=== PATIENT | female | born 1955 | race African-American/Black ===

== ENCOUNTER 2016-09-29 16:40 | Emergency (ER) | payer BC ==
[2016-09-29] MEDS ORDERED: NORMAL SALINE 1000 ML 1,000 ML IV PRN (16:58)
[2016-09-29] MEDS ORDERED: MORPHINE SULFATE 10 MG/ML INJ IV PRN ×3 (16:58→20:15)
[2016-09-29] MEDS ORDERED: METOCLOPRAMIDE HCL INJ/PF 10 MG/2 ML SDV IV ONE (16:58)
[2016-09-29] MEDS ORDERED: DIPHENHYDRAMINE HCL 50 MG/ML VIAL IV ONE (16:58)
--- NOTE | 2016-09-29 16:58 | ER Document Report ---
ED General - General Stated Complaint: VOMITING Time seen by provider: 16:57 Mode of Arrival: Ambulatory Information source: Patient Notes: This is a 60-year-old female with a history of chronic back pain, chronic hepatitis C ([place]), hypertension. Patient presents to the emergency room with nausea, vomiting, diarrhea. Patient does states she ran out of her hydromorphone (2 mg 4 times a day) one day ago. Patient denies fever, blood in the stool. She does admit to crampy abdominal pain.. TRAVEL OUTSIDE OF THE [place] IN LAST 30 DAYS: No - HPI Onset: Yesterday Onset/Duration: Sudden Quality of pain: Dull Severity: Moderate Pain Level: 3 Associated symptoms: Diarrhea, Nausea, Vomiting. denies: Chills, Fever, Shortness of breath Exacerbated by: Denies Relieved by: Denies Similar symptoms previously: No Recently seen / treated by doctor: No - Related Data Allergies/Adverse Reactions: No Known Allergies Allergy (Unverified 05/09/16 11:45) Past Medical History - General Information source: Patient - Social History Smoking Status: Never Smoker Cigarette use (# per day): No Chew tobacco use (# tins/day): No Frequency of alcohol use: None Drug Abuse: None Lives with: Alone Family History: Reviewed & Not Pertinent Patient has suicidal ideation: No Patient has homicidal ideation: No - Past Medical History Cardiac Medical History: Reports: Hx Hypertension Pulmonary Medical History: Reports: None EENT Medical History: Reports: None Neurological Medical History: Reports: None Endocrine Medical History: Reports: None Renal/ Medical History: Reports: None Malignancy Medical History: Reports: None GI Medical History: Reports: Other - Chronic hepatitis C Musculoskeltal Medical History: Reports Hx Arthritis, Reports Other - Chronic back pain Skin Medical History: Reports None Psychiatric Medical History: Reports: None Traumatic Medical History: Reports: None Infectious Medical History: Reports: None Surgical Hx: Negative Review of Systems - Review of Systems Constitutional: denies: Chills, Fever EENT: No symptoms reported Cardiovascular: No symptoms reported Respiratory: No symptoms reported Gastrointestinal: See HPI Genitourinary: No symptoms reported Female Genitourinary: No symptoms reported Musculoskeletal: No symptoms reported Skin: No symptoms reported Hematologic/Lymphatic: No symptoms reported Neurological/Psychological: No symptoms reported Physical Exam - Vital signs Vitals: Temp Pulse BP Pulse Ox 98.7 F 69 134/74 H 99 09/29/16 19:09 09/29/16 19:09 09/29/16 19:09 09/29/16 19:09 Notes: Physical exam: GENERAL: 61-year-old female, alert and oriented 3, currently vomiting HEAD: Atraumatic, normocephalic. EYES: Pupils equal round and reactive to light, extraocular movements intact, sclera anicteric, conjunctiva are normal. ENT: Dry mucous membranes. NECK: Normal range of motion, supple without lymphadenopathy or JVD. LUNGS: Breath sounds clear to auscultation bilaterally and equal. No wheezes rales or rhonchi. HEART: Regular rate and rhythm without murmurs, rubs or gallops. ABDOMEN: Soft, nontender, normoactive bowel sounds. No guarding, no rebound. No masses appreciated. EXTREMITIES: Normal range of motion, no pitting or edema. No clubbing or cyanosis. NEUROLOGICAL: Cranial nerves II through XII grossly intact. Normal speech, normal gait. PSYCH: Normal mood, normal affect. SKIN: Warm, Dry, normal turgor, no rashes or lesions noted. Course - Re-evaluation Re-evalutation: 09/29/16 19:32 Patient is receiving IV fluids. No nausea and vomiting has improved significantly. She does complain of a little crampy abdominal pain. Her abdomen is soft. No focal tenderness or signs of peritonitis. 09/29/16 20:52 Patient is doing much better and smiling at this time. She rapidly improved after pain medicine. The initiating onset can certainly of been food poisoning or some viral etiology for the gastroenteritis. However, she also had ran out of her pain medicines and probably has some amount of opiate withdrawal. In any event she did much better with IV fluids, IV Reglan, IV Zofran, and IV morphine. Her lab tests were good (normal white count, normal renal function), her vital signs are stable and CT scan of the abdomen and pelvis showed no acute intra-abdominal surgical pathology. She states she feels good enough to go home I've given her instructions to come back if she gets worse. - Vital Signs Vital signs: Temp Pulse Resp BP Pulse Ox 98.7 F 69 134/74 H 99 09/29/16 19:09 09/29/16 19:09 09/29/16 19:09 09/29/16 19:09 - Laboratory Result Diagrams: 09/29/16 19:25 09/29/16 19:25 Laboratory results interpreted by me: 09/29/16 09/29/16 19:25 19:25 WBC 12.4 H Hgb 15.9 H Hct 48.2 H MCV 101 H Plt Count 145 L Est GFR (Non-Af Amer) 59 L AST 48 H Alkaline Phosphatase 135 H Total Protein 8.8 H - Diagnostic Test Radiology reviewed: Image reviewed, Reports reviewed - CT of the abdomen shows no acute intra-abdominal process Discharge - Discharge Clinical Impression: vomiting with nausea, diarrhea Condition: Stable Disposition: HOME, SELF-CARE Instructions: Vomiting ([facility]), Diarrhea, Nonspecific ([facility]) Additional Instructions: Recommendations: Recommendations: Rest, drink plenty of fluids, advance diet as tolerated. Return to the emergency room with worsening abdominal pain, persistant pain or pain which moves to the right lower abdomen. You can try Probiotics: Activia Probiotic is sold next is milk and supermarkets : Twice daily for the next 2 weeks. Follow-up with a physician Dr. Lo in the next few days Also follow-up with your pain specialist (Dr. Enciso) as planned Prescriptions: Hydrocodone/Acetaminophen [[place] 5-325 mg Tablet] 1 tab PO Q6HP PRN #20 tablet PRN Reason: Referrals: CLEO STEPHENS MD [Primary Care Provider] - Follow up as needed
[2016-09-29] MEDS ORDERED: ONDANSETRON HCL INJ/PF 4 MG/2 ML SDV IV ONE (17:46)
[2016-09-29 19:36] LABS: ABSOLUTE BASOPHILS # (AUTO) 0.1 10^3/uL (0.0-0.2); ABSOLUTE EOSINOPHILS # (AUTO) 0.1 10^3/uL (0.0-0.6); ABSOLUTE LYMPHOCYTES (AUTO) 3.2 10^3/uL (0.5-4.7); ABSOLUTE MONOCYTES (AUTO) 1.4 10^3/uL (0.1-1.4); ABSOLUTE NEUT (AUTO) 7.7 10^3/uL (1.7-8.2); BASOPHILS % (AUTO) 0.6 % (0-2); EOSINOPHILS % (AUTO) 0.4 % (0-6); HEMATOCRIT 48.2 % (36.0-47.0); HEMOGLOBIN 15.9 g/dL (12.0-15.5); HGB HCT DIFFERENCE -0.5; LYMPHOCYTES % (AUTO) 25.5 % (13-45); MEAN CORPUSCULAR HEMOGLOBIN 33.3 pg (27.0-33.4); MEAN CORPUSCULAR HGB CONC 33.1 g/dL (32.0-36.0); MEAN CORPUSCULAR VOLUME 101 fl (80-97); MONOCYTES % (AUTO) 11.3 % (3-13); RED BLOOD COUNT 4.78 10^6/uL (3.72-5.28); RED CELL DISTRIBUTION WIDTH 12.9 % (11.5-14.0); SEGMENTED NEUTROPHILS % (AUTO) 62.2 % (42-78); WHITE BLOOD COUNT 12.4 10^3/uL (4.0-10.5)
[2016-09-29 19:55] LABS: ALANINE AMINOTRANSFERASE 44 U/L (9-52); ALBUMIN 3.5 g/dL (3.5-5.0); ALKALINE PHOSPHATASE 135 U/L (38-126); ANION GAP 13 (5-19); ASPARTATE AMINO TRANSFERASE 48 U/L (14-36); BILIRUBIN,TOTAL 1.2 mg/dL (0.2-1.3); BLOOD UREA NITROGEN 11 mg/dL (7-20); CALCIUM 9.5 mg/dL (8.4-10.2); CARBON DIOXIDE 26 mmol/L (22-30); CHLORIDE 106 mmol/L (98-107); CREATININE RESULT 0.96 mg/dL (0.52-1.25); GLUCOSE 85 mg/dL (75-110); LIPASE 129.7 U/L (23-300); POTASSIUM 3.7 mmol/L (3.6-5.0); SODIUM 144.5 mmol/L (137-145); TOTAL PROTEIN 8.8 g/dL (6.3-8.2)
[2016-09-29] MEDS ORDERED: ONDANSETRON ODT 4 MG TAB (6 TAB/DSPK) PO PRN (20:47)
[2016-09-29] MEDS ORDERED: HYDROCODONE/ACETAMINOPHEN 5-325 MG 6 TAB/DSPK PO PRN (20:47)
[2016-09-30 06:28] VITALS: BP 115/66
== END 2016-09-29 22:02 | disposition home or self-care (01) ==
LOC: ER 16:40
DX: R11.2 Nausea with vomiting, unspecified (principal); R19.7 Diarrhea, unspecified; B18.2 Chronic viral hepatitis C; Z79.899 Other long term (current) drug therapy; R10.9 Unspecified abdominal pain; I10 Essential (primary) hypertension; M54.9 Dorsalgia, unspecified; G89.29 Other chronic pain; Z79.891 Long term (current) use of opiate analgesic
CPT/HCPCS: 96376; 99284; 96361; 96374; 96375; 36415; 83690; 85025; 80053; 74176; J1200; J2765; J2270; J2405; J7030

== ENCOUNTER 2016-09-30 16:37 | Emergency (ER) | payer BC ==
--- NOTE | 2016-09-30 17:05 | ER Document Report ---
ED Medical Screen (RME) - General Stated Complaint: VOMITING Mode of Arrival: Wheelchair Information source: Patient Notes: Patient complains of nausea, vomiting, diarrhea. Patient was seen in emergency room yesterday for this problem. Patient complains of generalized abdominal pain. No fever. Patient reports decreased urination. hx: Hepatitis C, chronic back pain I have greeted and performed a rapid initial assessment of this patient. A comprehensive ED assessment and evaluation of the patient, analysis of test results and completion of the medical decision making process will be conducted by additional ED providers. TRAVEL OUTSIDE OF THE [place] IN LAST 30 DAYS: No - Related Data Allergies/Adverse Reactions: No Known Allergies Allergy (Unverified 05/09/16 11:45) Past Medical History - Past Medical History Cardiac Medical History: Reports: Hx Hypertension Musculoskeltal Medical History: Reports Hx Arthritis Past Surgical History: Reports: Hx Cholecystectomy - Immunizations Hx Diphtheria, Pertussis, Tetanus Vaccination: Yes Physical Exam - Vital signs Vitals: Temp Pulse Resp BP Pulse Ox 97.7 F 97 22 H 146/87 H 98 09/30/16 16:43 09/30/16 16:43 09/30/16 16:43 09/30/16 16:43 09/30/16 16:43 - Abdominal Tenderness: Tender - Generalized abdomen Course - Vital Signs Vital signs: Temp Pulse Resp BP Pulse Ox 97.7 F 97 22 H 146/87 H 98 09/30/16 16:43 09/30/16 16:43 09/30/16 16:43 09/30/16 16:43 09/30/16 16:43
[2016-09-30] MEDS ORDERED: ONDANSETRON 4 MG TAB.RAPDIS PO ONE (17:07)
[2016-09-30 18:26] LABS: ABSOLUTE EOSINOPHILS # (AUTO) 0.1 10^3/uL (0.0-0.6); ABSOLUTE NEUT (AUTO) 6.1 10^3/uL (1.7-8.2); BASOPHILS % (AUTO) 0.3 % (0-2); EOSINOPHILS % (AUTO) 0.6 % (0-6); HEMATOCRIT 49.3 % (36.0-47.0); HEMOGLOBIN 15.8 g/dL (12.0-15.5); HGB HCT DIFFERENCE -1.9; LYMPHOCYTES % (AUTO) 35.5 % (13-45); MEAN CORPUSCULAR HEMOGLOBIN 32.3 pg (27.0-33.4); MEAN CORPUSCULAR VOLUME 101 fl (80-97); MONOCYTES % (AUTO) 8.8 % (3-13); RED BLOOD COUNT 4.87 10^6/uL (3.72-5.28); RED CELL DISTRIBUTION WIDTH 13.3 % (11.5-14.0); SEGMENTED NEUTROPHILS % (AUTO) 54.8 % (42-78); WHITE BLOOD COUNT 11.2 10^3/uL (4.0-10.5)
[2016-09-30 18:29] LABS: APPEARANCE,URINE CLEAR; BILIRUBIN,URINE NEGATIVE (NEGATIVE); GLUCOSE, URINE NEGATIVE (NEGATIVE); KETONES,URINE TRACE mg/dL (NEGATIVE); LEUKOCYTE ESTERASE,URINE TRACE (NEGATIVE); NITRITE,URINE NEGATIVE (NEGATIVE); PROTEIN,URINE NEGATIVE (NEGATIVE); URINE SPECIFIC GRAVITY 1.011
[2016-09-30 18:45] LABS: ALANINE AMINOTRANSFERASE 38 U/L (9-52); ALBUMIN 3.5 g/dL (3.5-5.0); ALKALINE PHOSPHATASE 139 U/L (38-126); ANION GAP 14 (5-19); ASPARTATE AMINO TRANSFERASE 53 U/L (14-36); BILIRUBIN,TOTAL 1.4 mg/dL (0.2-1.3); BLOOD UREA NITROGEN 12 mg/dL (7-20); CALCIUM 9.3 mg/dL (8.4-10.2); CARBON DIOXIDE 23 mmol/L (22-30); CHLORIDE 104 mmol/L (98-107); CREATININE RESULT 0.91 mg/dL (0.52-1.25); GLUCOSE 95 mg/dL (75-110); LIPASE 138.8 U/L (23-300); POTASSIUM 3.3 mmol/L (3.6-5.0); SODIUM 140.6 mmol/L (137-145); TOTAL PROTEIN 8.7 g/dL (6.3-8.2)
[2016-09-30] MEDS ORDERED: MORPHINE SULFATE 10 MG/ML INJ IV ONE ×2 (19:28→20:57)
[2016-09-30] MEDS ORDERED: NORMAL SALINE 1000 ML 1,000 ML IV PRN (19:28)
[2016-09-30] MEDS ORDERED: ONDANSETRON HCL INJ/PF 4 MG/2 ML SDV IV ONE (19:28)
--- NOTE | 2016-09-30 19:30 | ER Document Report ---
ED GI/ - General Chief Complaint: Nausea/Vomiting Stated Complaint: VOMITING Time seen by provider: 19:29 Mode of Arrival: Wheelchair TRAVEL OUTSIDE OF THE [place] IN LAST 30 DAYS: No - HPI Patient complains to provider of: Abdominal pain, Vomiting Onset: Yesterday - 4 AM Timing/Duration: Sudden, Persistent Quality of pain: Achy, Cramping Severity at maximum: Moderate Severity in ED: Moderate Pain Level: 3 Location: Other - Diffuse Associated symptoms: Diarrhea, Dysuria, Nausea, Vomiting Exacerbated by: Denies Relieved by: Denies Similar symptoms previously: Yes Recently seen / treated by doctor: Yes Notes: 09/30/16 19:29 Patient is a 61-year-old female presenting to the emergency room complaining of nausea and vomiting with crampy diffuse abdominal pain that's been going on since 4 AM yesterday, she reports a small amount of dysuria as well, denies any fever, no sick contacts, denies having any blood in her vomit or diarrhea, patient was seen in this emergency room yesterday and discharge with Zofran and hydrocodone, states she has been unable to keep either of these down - Related Data Allergies/Adverse Reactions: No Known Allergies Allergy (Unverified 05/09/16 11:45) Past Medical History - General Information source: Patient - Social History Smoking Status: Never Smoker Chew tobacco use (# tins/day): No Frequency of alcohol use: None Drug Abuse: None Family History: Reviewed & Not Pertinent Patient has suicidal ideation: No Patient has homicidal ideation: No - Past Medical History Cardiac Medical History: Reports: Hx Hypertension Renal/ Medical History: Denies: Hx Peritoneal Dialysis Musculoskeltal Medical History: Reports Hx Arthritis Past Surgical History: Reports: Hx Cholecystectomy - Immunizations Hx Diphtheria, Pertussis, Tetanus Vaccination: Yes Review of Systems - Review of Systems Constitutional: No symptoms reported EENT: No symptoms reported Cardiovascular: No symptoms reported Respiratory: No symptoms reported Gastrointestinal: See HPI Genitourinary: Dysuria Female Genitourinary: No symptoms reported Musculoskeletal: No symptoms reported Skin: No symptoms reported Hematologic/Lymphatic: No symptoms reported Neurological/Psychological: No symptoms reported -: Yes All other systems reviewed and negative Physical Exam - Vital signs Vitals: Temp Pulse Resp BP Pulse Ox 97.7 F 97 22 H 146/87 H 98 09/30/16 16:43 09/30/16 16:43 09/30/16 16:43 09/30/16 16:43 09/30/16 16:43 Interpretation: Normal - General General appearance: Appears well, Alert - HEENT Head: Normocephalic, Atraumatic Eyes: Normal Pupils: PERRL - Respiratory Respiratory status: No respiratory distress Chest status: Nontender Breath sounds: Normal Chest palpation: Normal - Cardiovascular Rhythm: Regular Heart sounds: Normal auscultation Murmur: No - Abdominal Inspection: Normal Distension: No distension Bowel sounds: Hyperactive Tenderness: Tender - Mild diffuse tenderness Organomegaly: No organomegaly - Back Back: Normal, Nontender - Extremities General upper extremity: Normal inspection, Nontender, Normal color, Normal ROM , Normal temperature General lower extremity: Normal inspection, Nontender, Normal color, Normal ROM , Normal temperature, Normal weight bearing. No: Nikkie's sign - Neurological Neuro grossly intact: Yes Cognition: Normal Orientation: AAOx4 [place] Coma Scale Eye Opening: Spontaneous [place] Coma Scale Verbal: Oriented [place] Coma Scale Motor: Obeys Commands [place] Coma Scale Total: 15 Speech: Normal Motor strength normal: LUE, RUE, LLE, RLE Sensory: Normal - Psychological Associated symptoms: Normal affect, Normal mood - Skin Skin Temperature: Warm Skin Moisture: Dry Skin Color: Normal Course - Re-evaluation Re-evalutation: 09/30/16 20:57 Patient resting comfortably, reports feeling much better, still having some crampy abdominal pain and requesting additional pain medication, she has not been seen vomiting in the emergency room, patient will be by mouth challenge, and likely discharged home with nausea medication and information for follow-up 09/30/16 22:27 Patient continues to rest comfortably, has not had any vomiting visualized while in the emergency room, she will be discharged with nausea medication, she reports that she was to [facility] for chronic pain, therefore she was advised that no additional narcotic pain medication would be prescribed in the emergency room today, she will have to follow up with her primary care provider or pain coordinator for this, patient was advised to do so in the next 1-2 days or return if symptoms worsen, patient acknowledges understanding and agreement with this plan - Vital Signs Vital signs: Temp Pulse Resp BP Pulse Ox 97.7 F 97 22 H 146/87 H 98 09/30/16 16:43 09/30/16 16:43 09/30/16 16:43 09/30/16 16:43 09/30/16 16:43 - Laboratory Result Diagrams: 09/30/16 17:45 09/30/16 17:45 Laboratory results interpreted by me: 09/30/16 09/30/16 09/30/16 17:45 17:45 17:45 WBC 11.2 H Hgb 15.8 H Hct 49.3 H MCV 101 H Potassium 3.3 L Total Bilirubin 1.4 H AST 53 H Alkaline Phosphatase 139 H Total Protein 8.7 H Urine Ketones TRACE H Urine Urobilinogen 4.0 H Ur Leukocyte Esterase TRACE H Discharge - Discharge Clinical Impression: Nausea and vomiting Qualifiers: Vomiting type: unspecified Vomiting Intractability: non-intractable Qualified Code(s): R11.2 - Nausea with vomiting, unspecified Abdominal pain Qualifiers: Abdominal location: epigastric Qualified Code(s): R10.13 - Epigastric pain Condition: Stable Disposition: HOME, SELF-CARE Instructions: Abdominal Pain ([facility]), Antinausea Medication ([facility]), Vomiting ([facility]) Additional Instructions: Follow up with your primary care provider and your pain coordinator in one to 2 days. Return to the emergency room immediately if symptoms worsen or any additional concerns. Prescriptions: Promethazine HCl [Phenergan 25 mg Tablet] 25 - 50 mg PO ASDIR PRN #20 tablet PRN Reason:
[2016-09-30] MEDS ORDERED: PROMETHAZINE HCL 25 MG TABLET PO ONE (22:30)
[2016-09-30 23:21] VITALS: BP 114/68
== END 2016-09-30 23:20 | disposition home or self-care (01) ==
LOC: ER 16:37
DX: R11.2 Nausea with vomiting, unspecified (principal); R10.13 Epigastric pain; R30.0 Dysuria; R19.7 Diarrhea, unspecified; I10 Essential (primary) hypertension; Z90.49 Acquired absence of other specified parts of digestive tract
CPT/HCPCS: 96376; 99284; 96361; 96374; 96375; 36415; 83690; 85025; 80053; 81001; S0119; J2270; J2405; J7030

== ENCOUNTER 2016-10-01 16:31 | Emergency (ER) | payer BC ==
--- NOTE | 2016-10-01 16:42 | ER Document Report ---
ED Medical Screen (RME) - General Stated Complaint: ABDOMINAL PAIN Mode of Arrival: Medic Information source: Patient, Emergency Med Personnel Notes: Patient presents to the emergency department with complaints of abdominal pain and vomiting. This is patient's third visit since Thursday for same symptoms. I have greeted and performed a rapid initial assessment of this patient. A comprehensive ED assessment and evaluation of the patient, analysis of test results and completion of the medical decision making process will be conducted by additional ED providers. TRAVEL OUTSIDE OF THE [place] IN LAST 30 DAYS: No - Related Data Allergies/Adverse Reactions: No Known Allergies Allergy (Verified 10/01/16 16:41) Past Medical History - Past Medical History Cardiac Medical History: Reports: Hx Hypertension Renal/ Medical History: Denies: Hx Peritoneal Dialysis Musculoskeltal Medical History: Reports Hx Arthritis Past Surgical History: Reports: Hx Cholecystectomy - Immunizations Hx Diphtheria, Pertussis, Tetanus Vaccination: Yes
[2016-10-01] MEDS ORDERED: ONDANSETRON 4 MG TAB.RAPDIS PO ONE (16:44)
[2016-10-01] MEDS ORDERED: DIPHENHYDRAMINE HCL 50 MG/ML VIAL IV ONE (17:08)
[2016-10-01] MEDS ORDERED: METOCLOPRAMIDE HCL INJ/PF 10 MG/2 ML SDV IV ONE (17:08)
[2016-10-01] MEDS: NORMAL SALINE 1000 ML 1,000 ML IV PRN ×2 (17:15→20:00)
[2016-10-01] MEDS ORDERED: MORPHINE SULFATE 10 MG/ML INJ IV ONE (17:18)
--- NOTE | 2016-10-01 17:18 | ER Document Report ---
ED General - General Chief Complaint: Nausea/Vomiting/Diarrhea Stated Complaint: ABDOMINAL PAIN Time seen by provider: 17:17 Mode of Arrival: Medic Information source: Patient Notes: This is a 60-year-old female with chronic back pain, chronic hepatitis C ([place] ), hypertension. The patient presents to the emergency room with nausea, vomiting, diarrhea and upper abdominal pain. Patient states that the symptoms started 3 days ago at which time she had run out of her hydromorphone (2 mg 4 times a day). Patient was treated 2 days it go in the emergency room by myself with IV fluids, Reglan, Zofran and IV morphine. She had a CT of the abdomen which showed no acute intra-abdominal process at that time. Patient presented to the emergency room yesterday for persistent symptoms. She was discharged and returns today again with the symptoms above. TRAVEL OUTSIDE OF THE [place] IN LAST 30 DAYS: No - HPI Onset: Last week Onset/Duration: Gradual Quality of pain: Dull Severity: Moderate Pain Level: 2 Associated symptoms: Diarrhea, Nausea, Vomiting. denies: Chills, Fever Exacerbated by: Denies Relieved by: Denies Similar symptoms previously: Yes Recently seen / treated by doctor: Yes - Related Data Allergies/Adverse Reactions: No Known Allergies Allergy (Verified 10/01/16 16:41) Past Medical History - General Information source: Patient, Emergency Med Personnel - Social History Smoking Status: Never Smoker Cigarette use (# per day): No Chew tobacco use (# tins/day): No Frequency of alcohol use: None Drug Abuse: None Lives with: Family Family History: Reviewed & Not Pertinent Patient has suicidal ideation: No Patient has homicidal ideation: No - Past Medical History Cardiac Medical History: Reports: Hx Hypertension Pulmonary Medical History: Reports: None EENT Medical History: Reports: None Neurological Medical History: Reports: None Endocrine Medical History: Reports: None Renal/ Medical History: Denies: Hx Peritoneal Dialysis Malignancy Medical History: Reports: None GI Medical History: Reports: None Musculoskeltal Medical History: Reports Hx Arthritis Past Surgical History: Reports: Hx Cholecystectomy - Immunizations Hx Diphtheria, Pertussis, Tetanus Vaccination: Yes Review of Systems - Review of Systems Constitutional: denies: Chills, Fever EENT: No symptoms reported Cardiovascular: No symptoms reported Respiratory: No symptoms reported Gastrointestinal: See HPI Genitourinary: No symptoms reported Female Genitourinary: No symptoms reported Musculoskeletal: No symptoms reported Skin: No symptoms reported Hematologic/Lymphatic: No symptoms reported Neurological/Psychological: No symptoms reported Physical Exam - Vital signs Vitals: Temp Pulse Resp BP Pulse Ox 97.8 F 95 20 167/93 H 96 10/01/16 16:45 10/01/16 16:45 10/01/16 16:45 10/01/16 16:45 10/01/16 16:45 Notes: Physical exam: GENERAL: 61-year-old female, alert and oriented 3, complaining of upper abdominal pain, nausea, vomiting. Patient is actively vomiting in the ER. HEAD: Atraumatic, normocephalic. EYES: Pupils equal round and reactive to light, extraocular movements intact, sclera anicteric, conjunctiva are normal. ENT: TMs normal, nares patent, oropharynx clear without exudates. Moist mucous membranes. NECK: Normal range of motion, supple without lymphadenopathy or JVD. LUNGS: Breath sounds clear to auscultation bilaterally and equal. No wheezes rales or rhonchi. HEART: Regular rate and rhythm without murmurs, rubs or gallops. ABDOMEN: Soft, mild epigastric tenderness without rebound or guarding, normoactive bowel sounds. No masses appreciated. EXTREMITIES: Normal range of motion, no pitting or edema. No clubbing or cyanosis. NEUROLOGICAL: Cranial nerves II through XII grossly intact. Normal speech, normal gait. PSYCH: Normal mood, normal affect. SKIN: Warm, Dry, normal turgor, no rashes or lesions noted. Course - Vital Signs Vital signs: Temp Pulse Resp BP Pulse Ox 98.0 F 94 16 160/82 H 98 10/01/16 23:24 10/01/16 23:24 10/01/16 23:24 10/01/16 23:24 10/01/16 23:24 - Laboratory Result Diagrams: 10/01/16 18:11 10/01/16 19:31 Laboratory results interpreted by me: 10/01/16 10/01/16 10/01/16 18:11 18:56 19:31 Hgb 15.9 H Hct 49.4 H MCV 102 H Plt Count 112 L Potassium 3.4 L Chloride 108 H Carbon Dioxide 21 L AST 61 H Alkaline Phosphatase 130 H Total Protein 8.8 H Urine Ketones TRACE H Discharge - Discharge Clinical Impression: vomiting with nausea, epigastric pain Condition: Stable Disposition: HOME, SELF-CARE Instructions: Antinausea Medication ([facility]), Intravenous (IV) Fluids ([facility]), Vomiting ([facility]), Reglan ([facility]) Additional Instructions: Recommendations: As we discussed, call Dr. Lo's office first thing in the morning. Tell the design teacher that the ER doctor at spoken to Dr. Stephens and Dr. Lo wanted to see you in the office today. Prescriptions: Promethazine HCl [Phenergan 25 mg Tablet] 25 mg PO Q6H PRN #15 tablet PRN Reason: Referrals: CLEO STEPHENS MD [Primary Care Provider] - 10/02/16 (Call the office later this morning to be seen today.)
[2016-10-01] MEDS ORDERED: FAMOTIDINE INJ/PF 20 MG/2 ML SDV IV ONE (17:19)
[2016-10-01 18:30] LABS: ABSOLUTE BASOPHILS # (AUTO) 0.1 10^3/uL (0.0-0.2); ABSOLUTE EOSINOPHILS # (AUTO) 0.1 10^3/uL (0.0-0.6); ABSOLUTE LYMPHOCYTES (AUTO) 3.9 10^3/uL (0.5-4.7); ABSOLUTE MONOCYTES (AUTO) 1.1 10^3/uL (0.1-1.4); BASOPHILS % (AUTO) 0.5 % (0-2); EOSINOPHILS % (AUTO) 1.5 % (0-6); HEMATOCRIT 49.4 % (36.0-47.0); HEMOGLOBIN 15.9 g/dL (12.0-15.5); HGB HCT DIFFERENCE -1.7; LYMPHOCYTES % (AUTO) 38.2 % (13-45); MEAN CORPUSCULAR HEMOGLOBIN 32.9 pg (27.0-33.4); MEAN CORPUSCULAR HGB CONC 32.3 g/dL (32.0-36.0); MEAN CORPUSCULAR VOLUME 102 fl (80-97); MONOCYTES % (AUTO) 10.4 % (3-13); RED BLOOD COUNT 4.84 10^6/uL (3.72-5.28); RED CELL DISTRIBUTION WIDTH 13.1 % (11.5-14.0); SEGMENTED NEUTROPHILS % (AUTO) 49.4 % (42-78); WHITE BLOOD COUNT 10.1 10^3/uL (4.0-10.5)
[2016-10-01 19:19] LABS: APPEARANCE,URINE CLEAR; BILIRUBIN,URINE NEGATIVE (NEGATIVE); GLUCOSE, URINE NEGATIVE (NEGATIVE); KETONES,URINE TRACE mg/dL (NEGATIVE); LEUKOCYTE ESTERASE,URINE NEGATIVE (NEGATIVE); NITRITE,URINE NEGATIVE (NEGATIVE); PROTEIN,URINE NEGATIVE (NEGATIVE); URINE SPECIFIC GRAVITY 1.008; UROBILINOGEN,URINE NEGATIVE mg/dL (<2.0)
[2016-10-01 20:02] LABS: ALANINE AMINOTRANSFERASE 44 U/L (9-52); ALBUMIN 3.8 g/dL (3.5-5.0); ALKALINE PHOSPHATASE 130 U/L (38-126); ANION GAP 13 (5-19); ASPARTATE AMINO TRANSFERASE 61 U/L (14-36); BILIRUBIN,TOTAL 1.3 mg/dL (0.2-1.3); BLOOD UREA NITROGEN 10 mg/dL (7-20); CALCIUM 8.9 mg/dL (8.4-10.2); CARBON DIOXIDE 21 mmol/L (22-30); CHLORIDE 108 mmol/L (98-107); CREATININE RESULT 0.79 mg/dL (0.52-1.25); GLUCOSE 84 mg/dL (75-110); LIPASE 121.6 U/L (23-300); POTASSIUM 3.4 mmol/L (3.6-5.0); SODIUM 142.4 mmol/L (137-145); TOTAL PROTEIN 8.8 g/dL (6.3-8.2)
[2016-10-01] MEDS ORDERED: HYDROMORPHONE HCL INJ/PF 2 MG/ML AMPULE IM ONE (20:30)
[2016-10-01] MEDS ORDERED: NORMAL SALINE 1000 ML 1,000 ML IV PRN (21:11)
[2016-10-01] MEDS ORDERED: MORPHINE SULFATE 10 MG/ML INJ IV PRN (21:11)
[2016-10-02] MEDS ORDERED: PROMETHAZINE HCL 25 MG SUPP (4 SUPP/ER DISP) PR ONE (00:57)
[2016-10-02 01:44] VITALS: BP 133/78
== END 2016-10-02 01:45 | disposition home or self-care (01) ==
LOC: ER 16:31
DX: R10.13 Epigastric pain (principal); R11.2 Nausea with vomiting, unspecified; R19.7 Diarrhea, unspecified; R10.9 Unspecified abdominal pain; M54.9 Dorsalgia, unspecified; G89.29 Other chronic pain; B19.20 Unspecified viral hepatitis C without hepatic coma
CPT/HCPCS: 96376; 99284; 96372; 96361; 96374; 96375; 36415; 83690; 85025; 80053; 81001; J1200; J3490; J2765; J2270; J1170; J7030; S0028

== ENCOUNTER 2016-10-02 17:46 | Emergency (ER) | payer BC ==
[2016-10-02] MEDS ORDERED: HALOPERIDOL LACTATE INJ 5 MG/1 ML VIAL IV ONE (18:21)
[2016-10-02] MEDS ORDERED: DIPHENHYDRAMINE HCL 50 MG/ML VIAL IV ONE (18:23)
[2016-10-02] MEDS ORDERED: NORMAL SALINE 1000 ML 1,000 ML IV ONE (18:24)
[2016-10-02] MEDS ORDERED: HYDROMORPHONE HCL INJ/PF 2 MG/ML AMPULE IV ONE (18:33)
--- NOTE | 2016-10-02 18:54 | ER Document Report ---
ED General - General Chief Complaint: Abdominal Pain Stated Complaint: ABDOMINAL PAIN Notes: Patient is a 61-year-old female with past medical history of hepatitis C, chronic back pain currently on 14 mg of oral Dilaudid daily from her pain management physician who presents with persistent vomiting. Patient has been seen 3 times in the past 3 days with the same complaint, and has had repeatedly negative evaluations both on labs and CT imaging. She arrives today by EMS from her pain management physician office due to persistent vomiting and inability to tolerate oral pain medications. She also complains of intermittent diarrhea, body aches, and severe low back pain which she states feels similar to her chronic low back pain when it is untreated with daily narcotic therapy. She denies any focal abdominal pain, weakness, numbness, hemoptysis, melena, hematochezia, chest pain or shortness of breath. Nothing improves or worsens or symptoms. She has not had similar symptoms in the past prior to the last several days. TRAVEL OUTSIDE OF THE [place] IN LAST 30 DAYS: No - Related Data Allergies/Adverse Reactions: No Known Allergies Allergy (Verified 10/01/16 16:41) Past Medical History - General Information source: Patient - Social History Smoking Status: Current Some Day Smoker Frequency of alcohol use: None Drug Abuse: None Lives with: Alone Family History: Reviewed & Not Pertinent Patient has suicidal ideation: No Patient has homicidal ideation: No - Past Medical History Cardiac Medical History: Reports: Hx Hypertension Renal/ Medical History: Denies: Hx Peritoneal Dialysis Musculoskeltal Medical History: Reports Hx Arthritis Past Surgical History: Reports: Hx Cholecystectomy - Immunizations Hx Diphtheria, Pertussis, Tetanus Vaccination: Yes Review of Systems - Review of Systems Notes: Constitutional: Negative for fever. HENT: Negative for sore throat. Eyes: Negative for visual changes. Cardiovascular: Negative for chest pain. Respiratory: Negative for shortness of breath. Gastrointestinal: Positive for abdominal pain, vomiting and diarrhea. Genitourinary: Negative for dysuria. Musculoskeletal: Positive for back pain. Skin: Negative for rash. Neurological: Negative for headaches, weakness or numbness. 10 point ROS negative except as marked above and in HPI. Physical Exam - Vital signs Vitals: Temp Pulse Resp BP Pulse Ox 98.1 F 75 16 167/94 H 97 10/02/16 17:59 10/02/16 17:59 10/02/16 17:59 10/02/16 17:59 10/02/16 17:59 Interpretation: Hypertensive Notes: PHYSICAL EXAMINATION: GENERAL: Appears older than stated age but in no acute distress. HEAD: Atraumatic, normocephalic. EYES: Pupils equal round and reactive to light, extraocular movements intact, sclera anicteric, conjunctiva are normal. ENT: nares patent, oropharynx clear without exudates. Moist mucous membranes. NECK: Normal range of motion, supple without lymphadenopathy LUNGS: Breath sounds clear to auscultation bilaterally and equal. No wheezes rales or rhonchi. HEART: Regular rate and rhythm without murmurs ABDOMEN: Soft, minimal epigastric abdominal tenderness, normoactive bowel sounds. No guarding, no rebound. No masses appreciated. EXTREMITIES: Normal range of motion, no pitting or edema. No cyanosis. NEUROLOGICAL: No focal neurological deficits. Moves all extremities spontaneously and on command. PSYCH: Anxious, requesting IV Dilaudid repeatedly SKIN: Warm, Dry, normal turgor, no rashes or lesions noted. Course - Re-evaluation Re-evalutation: 10/02/16 18:51 She presents for the fourth time in the past 4 days for ongoing nausea, vomiting , and epigastric abdominal pain in the setting of opiate withdrawal. Patient is overall well in appearance, vitals within normal limits, no evidence of significant dehydration on examination. She is requesting Dilaudid IV by name. Patient was sent from her pain management clinic. She currently takes 12 mg of Dilaudid by mouth daily and began to develop her symptoms after becoming unable to tolerate her oral pain medication 4 days ago. Her clinical presentation is most consistent with acute opiate withdrawal. Will treat here and repeat basic laboratories. Based on exam and history, I do not suspect an acute bowel obstruction, mesenteric ischemia, biliary pathology, acute appendicitis, or pathology. Patient will be discharged once she is able to tolerate oral intake. I discussed with her at length my concerns about the use of such a high quantity of pain medication on a daily basis for chronic low back pain. I've instructed her that she needs to speak with her pain management team regarding why this level of pain medication is required for a chronic, unchanged condition. 1997-Patient was able to tolerate oral intake without difficulty. She has not had any vomiting while here in the emergency department. Repeat abdominal exams remain benign without focal tenderness. KUB unremarkable without evidence of obstruction.At this time will discharge with return precautions and follow-up recommendations. Verbal discharge instructions given a the bedside and opportunity for questions given. Medication warnings reviewed. Patient is in agreement with this plan and has verbalized understanding of return precautions and the need for primary care follow-up in the next 24-72 hours. - Vital Signs Vital signs: Temp Pulse Resp BP Pulse Ox 98.1 F 95 18 120/80 96 10/02/16 17:59 10/02/16 21:52 10/02/16 21:52 10/02/16 21:52 10/02/16 21:52 - Laboratory Result Diagrams: 10/02/16 18:17 10/02/16 20:40 Laboratory results interpreted by me: 10/02/16 20:40 Potassium 3.3 L Total Bilirubin 1.4 H AST 96 H Total Protein 8.6 H - Diagnostic Test Radiology reviewed: Image reviewed, Reports reviewed Radiology results interpreted by me: 10/03/16 02:14 KUB: No evidence of obstruction Discharge - Discharge Clinical Impression: Narcotic withdrawal Nausea and vomiting Qualifiers: Vomiting type: unspecified Vomiting Intractability: non-intractable Qualified Code(s): R11.2 - Nausea with vomiting, unspecified Abdominal pain Qualifiers: Abdominal location: epigastric Qualified Code(s): R10.13 - Epigastric pain Condition: Good Disposition: HOME, SELF-CARE Additional Instructions: Please restart your normal home medications when he gets home. Turn if you develop persistent vomiting, worsening pain, fever greater than 100.4F, pass out, or have any other symptoms that are concerning to you. Please discussed the high amount of pain medication that you are currently on with your chronic pain management providers as this appears to be a potentially unsafe dose that has you physiologically addicted to this medication. Referrals: CLEO STEPHENS MD [Primary Care Provider] - Follow up tomorrow
[2016-10-02] MEDS ORDERED: ONDANSETRON 4 MG TAB.RAPDIS PO ONE (19:36)
[2016-10-02] MEDS ORDERED: MORPHINE SULFATE SR 30 MG TABLET PO ONE (19:36)
[2016-10-02 21:20] LABS: ALANINE AMINOTRANSFERASE 50 U/L (9-52); ALBUMIN 3.8 g/dL (3.5-5.0); ALKALINE PHOSPHATASE 112 U/L (38-126); ANION GAP 16 (5-19); ASPARTATE AMINO TRANSFERASE 96 U/L (14-36); BILIRUBIN,TOTAL 1.4 mg/dL (0.2-1.3); BLOOD UREA NITROGEN 9 mg/dL (7-20); CALCIUM 8.6 mg/dL (8.4-10.2); CARBON DIOXIDE 23 mmol/L (22-30); CHLORIDE 102 mmol/L (98-107); CREATININE RESULT 0.71 mg/dL (0.52-1.25); GLUCOSE 93 mg/dL (75-110); POTASSIUM 3.3 mmol/L (3.6-5.0); SODIUM 140.9 mmol/L (137-145); TOTAL PROTEIN 8.6 g/dL (6.3-8.2)
[2016-10-02 21:53] VITALS: BP 120/80
== END 2016-10-02 21:52 | disposition home or self-care (01) ==
LOC: ER 17:46
DX: F19.939 Other psychoactive substance use, unspecified with withdrawal, unspecified (principal); R11.2 Nausea with vomiting, unspecified; R10.13 Epigastric pain; G89.29 Other chronic pain; M54.9 Dorsalgia, unspecified; F17.200 Nicotine dependence, unspecified, uncomplicated; I10 Essential (primary) hypertension; Z86.19 Personal history of other infectious and parasitic diseases; Z90.49 Acquired absence of other specified parts of digestive tract
CPT/HCPCS: 99284; 96361; 96374; 96375; 36415; 83690; 80053; 74000; J1200; S0119; J1170; J7030

== ENCOUNTER 2016-10-04 13:42 | Emergency (ER) | payer BC ==
[2016-10-04] MEDS ORDERED: ONDANSETRON 4 MG TAB.RAPDIS PO ONE (14:03)
--- NOTE | 2016-10-04 14:05 | ER Document Report ---
ED Medical Screen (RME) - General Stated Complaint: STOMACH PAIN Time seen by provider: 14:03 Mode of Arrival: Wheelchair Information source: Patient Notes: 61-year-old female that takes Dilaudid 16 mg for chronic back pain is complaining of vomiting and diarrhea since Thursday. She did have a good day yesterday and was able to take her pain medicine. She is concerned that she has withdrawal symptoms since she is not able to take her pain medicine today. She is nauseated at this time. No history of pancreatitis. History of cholecystectomy. Menopause. TRAVEL OUTSIDE OF THE [place] IN LAST 30 DAYS: No - Related Data Allergies/Adverse Reactions: No Known Allergies Allergy (Verified 10/04/16 14:01) Past Medical History - Past Medical History Cardiac Medical History: Reports: Hx Hypertension Renal/ Medical History: Denies: Hx Peritoneal Dialysis Musculoskeltal Medical History: Reports Hx Arthritis Past Surgical History: Reports: Hx Cholecystectomy - Immunizations Hx Diphtheria, Pertussis, Tetanus Vaccination: Yes Physical Exam - Vital signs Vitals: Temp Pulse Resp BP Pulse Ox 98.1 F 104 H 16 155/106 H 96 10/04/16 13:49 10/04/16 13:49 10/04/16 13:49 10/04/16 13:49 10/04/16 13:49 Course - Vital Signs Vital signs: Temp Pulse Resp BP Pulse Ox 98.1 F 104 H 16 155/106 H 96 10/04/16 13:49 10/04/16 13:49 10/04/16 13:49 10/04/16 13:49 10/04/16 13:49
[2016-10-04] MEDS ORDERED: NORMAL SALINE 1000 ML 1,000 ML IV ONE (15:17)
[2016-10-04] MEDS ORDERED: DICYCLOMINE HCL INJ 20 MG/2 ML AMPULE IM ONE (15:19)
[2016-10-04] MEDS ORDERED: DIPHENHYDRAMINE HCL 50 MG/ML VIAL IV ONE (15:19)
[2016-10-04 15:21] LABS: ABSOLUTE BASOPHILS # (AUTO) 0.1 10^3/uL (0.0-0.2); ABSOLUTE EOSINOPHILS # (AUTO) 0.1 10^3/uL (0.0-0.6); ABSOLUTE LYMPHOCYTES (AUTO) 4.3 10^3/uL (0.5-4.7); ABSOLUTE MONOCYTES (AUTO) 1.5 10^3/uL (0.1-1.4); ABSOLUTE NEUT (AUTO) 6.7 10^3/uL (1.7-8.2); BASOPHILS % (AUTO) 0.5 % (0-2); EOSINOPHILS % (AUTO) 0.7 % (0-6); HEMATOCRIT 51.2 % (36.0-47.0); HEMOGLOBIN 16.9 g/dL (12.0-15.5); HGB HCT DIFFERENCE -0.5; LYMPHOCYTES % (AUTO) 33.7 % (13-45); MEAN CORPUSCULAR HEMOGLOBIN 32.9 pg (27.0-33.4); MEAN CORPUSCULAR VOLUME 100 fl (80-97); RED BLOOD COUNT 5.12 10^6/uL (3.72-5.28); RED CELL DISTRIBUTION WIDTH 12.3 % (11.5-14.0); SEGMENTED NEUTROPHILS % (AUTO) 53.1 % (42-78); WHITE BLOOD COUNT 12.7 10^3/uL (4.0-10.5)
[2016-10-04 15:33] LABS: ALANINE AMINOTRANSFERASE 45 U/L (9-52); ALBUMIN 3.8 g/dL (3.5-5.0); ALKALINE PHOSPHATASE 148 U/L (38-126); ANION GAP 15 (5-19); ASPARTATE AMINO TRANSFERASE 99 U/L (14-36); BILIRUBIN,TOTAL 1.6 mg/dL (0.2-1.3); BLOOD UREA NITROGEN 12 mg/dL (7-20); CALCIUM 9.5 mg/dL (8.4-10.2); CARBON DIOXIDE 27 mmol/L (22-30); CHLORIDE 101 mmol/L (98-107); CREATININE RESULT 0.75 mg/dL (0.52-1.25); GLUCOSE 115 mg/dL (75-110); LIPASE 89.5 U/L (23-300); SODIUM 142.8 mmol/L (137-145); TOTAL PROTEIN 9.6 g/dL (6.3-8.2)
[2016-10-04 15:37] LABS: POTASSIUM 2.9 mmol/L (3.6-5.0)
[2016-10-04] MEDS ORDERED: POTASSIUM CHLORIDE 10 MEQ TABLET.SA PO ONE (15:50)
[2016-10-04] MEDS ORDERED: POTASSI CL 20 MEQ/50 ML RIDER 50 ML IV ONE (15:50)
[2016-10-04 16:59] LABS: APPEARANCE,URINE SLIGHTLY-CLOUDY; BILIRUBIN,URINE NEGATIVE (NEGATIVE); GLUCOSE, URINE NEGATIVE (NEGATIVE); KETONES,URINE 20 mg/dL (NEGATIVE); LEUKOCYTE ESTERASE,URINE SMALL (NEGATIVE); NITRITE,URINE POSITIVE (NEGATIVE); PROTEIN,URINE NEGATIVE (NEGATIVE); URINE SPECIFIC GRAVITY 1.012
[2016-10-04] MEDS ORDERED: MAGNESIUM SULFATE/D5W 100 ML IV ONE (17:19)
[2016-10-04] MEDS ORDERED: CEFTRIAXONE 1 GM/D5W RTU 50 ML IV ONE (17:20)
[2016-10-04] MEDS ORDERED: HALOPERIDOL LACTATE INJ 5 MG/1 ML VIAL IV ONE (17:52)
[2016-10-04] MEDS ORDERED: KETOROLAC TROMETHAMINE INJ/PF 30 MG/1 ML SDV IV ONE (19:46)
[2016-10-04 19:49] VITALS: BP 157/85
--- NOTE | 2016-10-04 20:00 | ER Document Report ---
ED General - General Chief Complaint: Abdominal Pain Stated Complaint: STOMACH PAIN Mode of Arrival: Wheelchair TRAVEL OUTSIDE OF THE [place] IN LAST 30 DAYS: No - HPI Patient complains to provider of: generalized abdominal pain nausea vomiting Notes: Patient coming in for generalized abdominal pain nausea vomiting. Patient has been seen multiple times recently for same complaint. Patient states that she is on high doses of Dilaudid approximate 14 mg daily states due to the nausea and vomiting that she has not been able to take her pain medication. Denies fevers chills states that she is having some diarrhea. Denies any urinary symptoms. Upon entering patient is in no obvious distress resting comfortably - Related Data Allergies/Adverse Reactions: No Known Allergies Allergy (Verified 10/04/16 14:01) Past Medical History - General Information source: Patient - Social History Smoking Status: Current Some Day Smoker Cigarette use (# per day): Yes - 3/4 per day Chew tobacco use (# tins/day): No Frequency of alcohol use: None Drug Abuse: None Family History: Reviewed & Not Pertinent Patient has suicidal ideation: No Patient has homicidal ideation: No - Past Medical History Cardiac Medical History: Reports: Hx Hypertension Renal/ Medical History: Denies: Hx Peritoneal Dialysis Musculoskeltal Medical History: Reports Hx Arthritis Past Surgical History: Reports: Hx Cholecystectomy - Immunizations Hx Diphtheria, Pertussis, Tetanus Vaccination: Yes Review of Systems - Review of Systems Constitutional: No symptoms reported EENT: No symptoms reported Cardiovascular: No symptoms reported Respiratory: No symptoms reported Gastrointestinal: Abdominal pain, Nausea, Vomiting Genitourinary: No symptoms reported Female Genitourinary: No symptoms reported Musculoskeletal: No symptoms reported Skin: No symptoms reported Hematologic/Lymphatic: No symptoms reported Neurological/Psychological: No symptoms reported -: Yes All other systems reviewed and negative Physical Exam - Vital signs Vitals: Temp Pulse Resp BP Pulse Ox 98.1 F 104 H 16 155/106 H 96 10/04/16 13:49 10/04/16 13:49 10/04/16 13:49 10/04/16 13:49 10/04/16 13:49 Interpretation: Normal - General General appearance: Appears well, Alert - HEENT Head: Normocephalic, Atraumatic Eyes: Normal Pupils: PERRL - Respiratory Respiratory status: No respiratory distress Chest status: Nontender Breath sounds: Normal Chest palpation: Normal - Cardiovascular Rhythm: Regular Heart sounds: Normal auscultation Murmur: No - Abdominal Inspection: Normal Distension: No distension Bowel sounds: Normal Tenderness: Tender - Diffuse tenderness Organomegaly: No organomegaly - Back Back: Normal, Nontender - Extremities General upper extremity: Normal inspection, Nontender, Normal color, Normal ROM , Normal temperature General lower extremity: Normal inspection, Nontender, Normal color, Normal ROM , Normal temperature, Normal weight bearing. No: Nikkie's sign - Neurological Neuro grossly intact: Yes Cognition: Normal Orientation: AAOx4 [place] Coma Scale Eye Opening: Spontaneous [place] Coma Scale Verbal: Oriented [place] Coma Scale Motor: Obeys Commands [place] Coma Scale Total: 15 Speech: Normal Motor strength normal: LUE, RUE, LLE, RLE Sensory: Normal - Psychological Associated symptoms: Normal affect, Normal mood - Skin Skin Temperature: Warm Skin Moisture: Dry Skin Color: Normal Course - Re-evaluation Re-evalutation: 10/04/16 22:39 Patient's lab work does show hypokalemia hypomagnesemia. X-ray of the abdomen shows no specific abdominal pathology. Patient did recently have a CAT scan performed. CAT scan was reviewed was negative. Lab work is compared other than the R abnormalities is consistent with her recent visits. Patient requesting pain medications through her IV. Patient was given Bentyl IM a dose of Haldol for nausea vomiting nausea medications Reglan and Benadryl. I explained to the patient that her symptoms are due to her chronic opiate use that she is on pain management and that I would not give her any narcotics here in the ER. Excellent patient that I felt that this would be more harmful for her treatment. Patient's electrolyteswere replaced IV and orally. After multiple re-evaluations for which he is time patient was in no distress resting comfortably sometimes sleeping I splinted patient that she could be discharged home. Patient states that she would not leave the ER until she was given a dose of narcotic pain medication through her IV. Explained again to the patient I would not be giving her any narcotics and she can follow-up her chronic pain management. - Vital Signs Vital signs: Temp Pulse Resp BP Pulse Ox 99.5 F 96 14 157/85 H 96 10/04/16 19:45 10/04/16 19:45 10/04/16 19:45 10/04/16 19:45 10/04/16 19:45 - Laboratory Result Diagrams: 10/04/16 14:55 10/04/16 14:55 Laboratory results interpreted by me: 10/04/16 10/04/16 10/04/16 14:55 14:55 14:55 WBC 12.7 H Hgb 16.9 H Hct 51.2 H MCV 100 H Absolute Monocytes 1.5 H Potassium 2.9 L* Glucose 115 H Magnesium 1.4 L Total Bilirubin 1.6 H AST 99 H Alkaline Phosphatase 148 H Total Protein 9.6 H Urine Ketones Urine Nitrite Urine Urobilinogen Ur Leukocyte Esterase 10/04/16 16:23 WBC Hgb Hct MCV Absolute Monocytes Potassium Glucose Magnesium Total Bilirubin AST Alkaline Phosphatase Total Protein Urine Ketones 20 H Urine Nitrite POSITIVE H Urine Urobilinogen 2.0 H Ur Leukocyte Esterase SMALL H Discharge - Discharge Clinical Impression: Narcotic withdrawal, Hypokalemia, Hypomagnesemia Chronic pain Qualifiers: Chronic pain type: other chronic pain Qualified Code(s): G89.29 - Other chronic pain Nausea and vomiting Qualifiers: Vomiting type: unspecified Vomiting Intractability: unspecified Qualified Code( s): R11.2 - Nausea with vomiting, unspecified UTI (urinary tract infection) Qualifiers: Urinary tract infection type: site unspecified Hematuria presence: without hematuria Qualified Code(s): N39.0 - Urinary tract infection, site not specified Condition: Good Disposition: HOME, SELF-CARE Instructions: Abdominal Pain ([facility]), Vomiting ([facility]), Urinary Tract Infection ( [facility]), Hypokalemia ([facility]) Additional Instructions: Your abdominal pain is more likely due to your use of high strength narcotic medications. This is also playing a part in your nausea vomiting. Your laboratory does show a low potassium and low magnesium these were replaced here in the ER. I would recommend drinking plenty of fluids such as water and Gatorade to make sure that your electrolytes stayed within normal limits. You need to discuss her pain management plan with your chronic pain team you may take the medication prescribed for your nausea. Take the antibiotic for your urinary tract infection Prescriptions: Metoclopramide HCl [Reglan] 5 mg PO Q6 #20 tablet Nitrofurantoin/Nitrofuran Mac [Macrobid 100 mg Capsule] 1 tab PO BID #20 capsule Referrals: CLEO STEPHENS MD [Primary Care Provider] - Follow up in 3-5 days
== END 2016-10-04 20:39 | disposition home or self-care (01) ==
LOC: ER 13:42
DX: E87.6 Hypokalemia (principal); E83.42 Hypomagnesemia; N39.0 Urinary tract infection, site not specified; F11.23 Opioid dependence with withdrawal; G89.29 Other chronic pain; R10.84 Generalized abdominal pain; R11.2 Nausea with vomiting, unspecified; F17.210 Nicotine dependence, cigarettes, uncomplicated; I10 Essential (primary) hypertension; Z90.49 Acquired absence of other specified parts of digestive tract
CPT/HCPCS: 99284; 96372; 96375; 96365; 96367; 96368; 36415; 83690; 83735; 85025; 80053; 81001; 83605; 74022; J0500; J1200; S0119; J1630; J1885; J3475; J3480; J7030; J0696

== ENCOUNTER → 2016-11-25 | Outpatient (CLI) | payer MEDICAID | LOC: RAD 07:37 | PROVIDERS: ATTEND Internal Medicine Gastroenterology | DX: B19.20 Unspecified viral hepatitis C without hepatic coma (principal); K74.69 Other cirrhosis of liver | CPT/HCPCS: 76700 ==

== ENCOUNTER → 2016-11-27 | Outpatient (CLI) | payer MEDICAID ==
[2016-11-27 12:47] LABS: HEMATOCRIT 49.6 % (36.0-47.0); HEMOGLOBIN 16.3 g/dL (12.0-15.5); HGB HCT DIFFERENCE -0.7; MEAN CORPUSCULAR HEMOGLOBIN 32.7 pg (27.0-33.4); MEAN CORPUSCULAR HGB CONC 32.9 g/dL (32.0-36.0); MEAN CORPUSCULAR VOLUME 100 fl (80-97); RED BLOOD COUNT 4.99 10^6/uL (3.72-5.28); RED CELL DISTRIBUTION WIDTH 14.7 % (11.5-14.0)
[2016-11-28 15:17] LABS: HEMATOCRIT 46.9 % (36.0-47.0); HEMOGLOBIN 15.8 g/dL (12.0-15.5); HGB HCT DIFFERENCE 0.5; MEAN CORPUSCULAR HGB CONC 33.7 g/dL (32.0-36.0); MEAN CORPUSCULAR VOLUME 101 fl (80-97); RED BLOOD COUNT 4.64 10^6/uL (3.72-5.28); RED CELL DISTRIBUTION WIDTH 14.9 % (11.5-14.0); WHITE BLOOD COUNT 16.4 10^3/uL (4.0-10.5)
[2016-11-28 15:41] LABS: ALANINE AMINOTRANSFERASE 51 U/L (9-52); ALBUMIN 4.1 g/dL (3.5-5.0); ALKALINE PHOSPHATASE 113 U/L (38-126); ASPARTATE AMINO TRANSFERASE 71 U/L (14-36); BILIRUBIN,TOTAL 1.4 mg/dL (0.2-1.3); BLOOD UREA NITROGEN 30 mg/dL (7-20); CREATININE RESULT 2.76 mg/dL (0.52-1.25); GLUCOSE 113 mg/dL (75-110); LIPASE 137.7 U/L (23-300); TOTAL PROTEIN 8.9 g/dL (6.3-8.2)
[2016-11-28 16:02] LABS: ANION GAP 21 (5-19); CHLORIDE 103 mmol/L (98-107); POTASSIUM 3.9 mmol/L (3.6-5.0)
[2016-11-28 16:03] LABS: CARBON DIOXIDE 18 mmol/L (22-30); SODIUM 141.8 mmol/L (137-145)
== END ==
LOC: OD 11:23
PROVIDERS: ATTEND Physician Assistant Surgical
DX: R10.13 Epigastric pain (principal); R11.11 Vomiting without nausea
CPT/HCPCS: 36415; 80048; 80076; 83690; 85027

== ENCOUNTER 2017-01-06 19:41 | Emergency (ER) | payer MEDICAID ==
[2017-01-06] MEDS ORDERED: ASPIRIN 81 MG TABLET, CHEWABLE PO ONE (21:32)
--- NOTE | 2017-01-06 22:18 | EKG REPORT ---
SEVERITY:- NORMAL ECG - SINUS RHYTHM : Confirmed by: Dayton Pacheco 06-Jan-2017 22:18:06
[2017-01-06 23:05] LABS: HEMATOCRIT 50.3 % (36.0-47.0); HEMOGLOBIN 16.8 g/dL (12.0-15.5); HGB HCT DIFFERENCE 0.1; MEAN CORPUSCULAR HGB CONC 33.5 g/dL (32.0-36.0); MEAN CORPUSCULAR VOLUME 99 fl (80-97); RED CELL DISTRIBUTION WIDTH 14.4 % (11.5-14.0); WHITE BLOOD COUNT 22.4 10^3/uL (4.0-10.5)
[2017-01-06] MEDS ORDERED: IPRATROPIUM/ALBUTEROL 0.5-2.5 MG/3 ML AMPUL NEB ONE (23:12)
--- NOTE | 2017-01-06 23:12 | ER Document Report ---
ED General - General Chief Complaint: Chest Pain Stated Complaint: CHEST PAIN Notes: The patient is a 61-year-old female with past medical history chronic back pain , smoker, hypertension, presents with 2 weeks of dry cough, nasal congestion and chest pain when she coughs. She is now having yellow mucus and chills. She is also having posttussive emesis after she coughs. She denies fevers, headache, chest pain at rest, numbness, tingling, leg swelling, hemoptysis or recent travel. TRAVEL OUTSIDE OF THE [place] IN LAST 30 DAYS: No - Related Data Allergies/Adverse Reactions: No Known Allergies Allergy (Verified 10/04/16 14:01) Past Medical History - General Information source: Patient - Social History Smoking Status: Current Every Day Smoker Family History: Reviewed & Not Pertinent Patient has suicidal ideation: No Patient has homicidal ideation: No - Past Medical History Cardiac Medical History: Reports: Hx Hypertension Renal/ Medical History: Denies: Hx Peritoneal Dialysis Musculoskeltal Medical History: Reports Hx Arthritis Past Surgical History: Reports: Hx Cholecystectomy - Immunizations Hx Diphtheria, Pertussis, Tetanus Vaccination: Yes Review of Systems - Review of Systems Notes: REVIEW OF SYSTEMS: CONSTITUTIONAL: -fevers, +chills EENT: -eye pain, -difficulty swallowing, +nasal congestion CARDIOVASCULAR: -chest pain, -syncope. RESPIRATORY: +cough, -SOB GASTROINTESTINAL: -abdominal pain, +nausea, -vomiting, -diarrhea, +post-tussive emesis GENITOURINARY: -dysuria, -hematuria MUSCULOSKELETAL: -back pain, -neck pain SKIN: -rash or skin lesions. HEMATOLOGIC: -easy bruising or bleeding. LYMPHATIC: -swollen, enlarged glands. NEUROLOGICAL: -altered mental status or loss of consciousness, -headache, - neurologic symptoms PSYCHIATRIC: -anxiety, -depression. ALL OTHER SYSTEMS REVIEWED AND NEGATIVE. Physical Exam - Vital signs Vitals: Temp Pulse Resp BP Pulse Ox 98.3 F 88 22 H 161/104 H 92 01/06/17 19:56 01/06/17 19:56 01/06/17 19:56 01/06/17 19:56 01/06/17 19:56 - Notes Notes: PHYSICAL EXAMINATION: GENERAL: Well-appearing, well-nourished and in no acute distress. HEAD: Atraumatic, normocephalic. EYES: Pupils equal round and reactive to light, extraocular movements intact, sclera anicteric, conjunctiva are normal. ENT: B/L maxillary sinus tenderness, clear rhinorrhea, nares patent, oropharynx clear without exudates. Moist mucous membranes. NECK: Normal range of motion, supple without lymphadenopathy LUNGS: No respiratory distress, mild end expiratory wheezes, RLL crackles. HEART: Regular rate and rhythm without murmurs ABDOMEN: Soft, nontender, normoactive bowel sounds. No guarding, no rebound. No masses appreciated. EXTREMITIES: Normal range of motion, no pitting or edema. No cyanosis. NEUROLOGICAL: Cranial nerves grossly intact. Normal speech, normal gait. Normal sensory, motor, and reflex exams. PSYCH: Normal mood, normal affect. SKIN: Warm, Dry, normal turgor, no rashes or lesions noted. Course - Re-evaluation Re-evalutation: Patient is in no respiratory distress. Her chest x-ray does not show any evidence of pneumonia. However, patient now has increased sputum and leukocytosis with chills. She does have crackles in her lung bases and her chest x-ray may be lagging behind her clinical pneumonia. Will provide Augmentin for pneumonia. Will also treat her bronchitis symptoms with steroids and albuterol with follow-up at her primary care physician. Also provided her with smoking cessation education. Patient also requesting antinausea medicine due to intermittent nausea and past few days. - Vital Signs Vital signs: Temp Pulse Resp BP Pulse Ox 98.3 F 88 23 H 168/100 H 96 01/06/17 19:56 01/06/17 19:56 01/07/17 00:01 01/07/17 00:01 01/07/17 00:05 - Laboratory Result Diagrams: 01/06/17 22:20 01/06/17 22:20 Laboratory results interpreted by me: 01/06/17 01/06/17 22:20 22:20 WBC 22.4 H Hgb 16.8 H Hct 50.3 H MCV 99 H RDW 14.4 H Band Neutrophils % 1 L Monocytes % (Manual) 14 H Abs Neuts (Manual) 14.6 H Abs Monocytes (Manual) 3.1 H Potassium 3.4 L Carbon Dioxide 21 L Glucose 134 H Calcium 10.3 H Direct Bilirubin 0.5 H Alkaline Phosphatase 162 H Total Protein 9.1 H - Diagnostic Test Radiology reviewed: Image reviewed, Reports reviewed - EKG Interpretation by Me EKG shows normal: Sinus rhythm, Tutor Key, Intervals, QRS Complexes, ST-T Waves Discharge - Discharge Clinical Impression: Bronchitis, Post-tussive emesis Leukocytosis Qualifiers: Leukocytosis type: unspecified Qualified Code(s): D72.829 - Elevated white blood cell count, unspecified Condition: Stable Disposition: HOME, SELF-CARE Additional Instructions: BRONCHITIS WITH BRONCHOSPASM (WHEEZING): You have bronchitis with bronchospasm (wheezing). Sometimes people develop wheezing with a chest cold. This occurs either because of an underlying tendency toward asthma or because the virus itself irritates the bronchial tubes. This irritation causes cough, shortness of breath, and wheezing. Emergency treatment of bronchospasm may include adrenaline shots or bronchodilator aerosol. You may feel lightheaded and have a rapid pulse for an hour or two. Rest and get plenty of fluids. At home, we'll treat you with a bronchodilator inhaler. Corticosteroids may be required for some patients. Until you recover, avoid chemical fumes, dusts, pollens, and exercising in very cold or dry air. If you smoke, stop now! Most cases of bronchitis get better without antibiotics. We prescribe antibiotics when we believe bacteria are damaging your airways, or if there's high risk the bronchitis will worsen into pneumonia. Increase your fluid intake. A cool mist humidifier may make your lungs more comfortable. An expectorant (cough medicine that loosens phlegm) can help. Repeated episodes of bronchitis and bronchospasm may result in lung damage -- for example, chronic bronchitis, recurrent pneumonias, or emphysema. If you develop a fever, increased wheezing, chest pain, or severe shortness of breath, you should contact the doctor immediately. DECONGESTANT MEDICATION: A decongestant medicine has been prescribed. Often this medicine is combined in the same tablet with an antihistamine or expectorant. This type of medicine is helpful in treating a bad cold or sinus condition, as well as in treatment of the nasal congestion of hay fever. It is not of much benefit for lung infections. Decongestant medicines are related to stimulants. They can cause an increase in blood pressure and heart rate. Persons with heart disease and high blood pressure should not take decongestants without discussing this with the physician. If you develop palpitations, chest pain, headache, or tremors, stop the medicine and consult your physician. COUGH-SUPPRESSANT & EXPECTORANT MEDICATION: You are to use a cough medication as needed for relief of symptoms. This medicine is a combination of an expectorant (to make the mucous thinner and more easily "coughed up") and a cough suppressant (to reduce the frequency of coughing). The cough-suppressant medicine is related to narcotics. You may experience mild nausea and sleepiness. Some patients who are very sensitive to narcotics may have stomach pain from this medicine. Taking the medicine with food reduces these side effects. Do not drive or work with machinery until you know how this medicine affects you. The expectorant should have no side effects. Iodine-containing expectorants (such as organidin) should not be taken by persons with active thyroid disease unless approved by your doctor. Call the doctor if you develop shortness of breath, hives, rash, itching, lightheadedness, or severe nausea and vomiting. INHALED BRONCHODILATORS: You have received a treatment of and/or prescription for an inhaled bronchodilator -- a medication which stimulates the airways in the lung to dilate. This improves the flow of air in asthma, bronchitis, and emphysema. These medicines have some similarity to adrenaline, and can cause similar side effects: shakiness, racing heart, and a sense of nervousness. These side effects decrease with time. Contact your doctor if these side effects are severe. Do not over-use the medicine. Too-frequent use of the inhaler may make it ineffective. Call your doctor if the inhaler is not controlling your symptoms at the prescribed doses. STEROID MEDICATION: You have been given an injection of or oral medicine of the cortisone/ steroid class. This medication is used to control inflammation or allergy. Juan t is usually only given for a short period of time, until the acute process subsides. There are usually no side effects from short-term use of cortisone-like medications. Some persons feel an increased sense of well-being and are not sleepy at bedtime. Long-term use of cortisone medications is best avoided, unless required for a severe condition. If your condition does not remit, or relapses after the course of corticosteroid medication, you should consult your physician. ANTIBIOTIC THERAPY: You have been given an antibiotic prescription. It's important that you take all the medication, unless instructed otherwise by your physician. Failure to complete the entire course can result in relapse of your condition. Common side effects of antibiotics include nausea, intestinal cramping, or diarrhea. Women may develop vaginal yeast infections, and babies can get yeast (thrush) in the mouth following the use of antibiotics. Contact your physician if you develop significant side effects from this medication. Allergy to this antibiotic can result in hives, wheezing, faintness, or itching. If symptoms of allergy occur, stop the medication and call your doctor. AMOXICILLIN: Amoxicillin is a member of the penicillin family. It covers the germs likely to cause ear, bronchial, and urinary infections better than plain penicillin. Amoxicillin can be taken without regard to meals. Nausea after taking the medication is rare, but can occur. Diarrhea can occur, particularly in small children. Vaginal yeast infections and oral thrush in infants are also common. Contact your physician if these problems occur. Allergy to penicillins is common. If you have had an allergic reaction to any drug of the penicillin family, you should never take any other penicillin. Notify your doctor at once if you develop hives, itching, swelling, faintness, or shortness of breath. Less serious side effects can include nausea or diarrhea. USE OF ACETAMINOPHEN (Tylenol): Acetaminophen may be taken for pain relief or fever control. It's much safer than aspirin, offering a wider range of "safe" dosages. It is safe during . Some brand names are Tylenol, Panadol, Datril, Anacin 3, Tempra, and Liquiprin. Acetaminophen can be repeated every four hours. The following are maximum recommended dosages: >89 pounds or adults 650 mg to 900 mg Acetaminophen can be repeated every four hours. Maximum dose not to exceed 4000 mg a day. SMOKING: If you smoke, you should stop smoking. The tar and chemicals in cigarette smoke are harmful. Smoking has been shown to cause: emphysema chronic bronchitis lung cancer mouth and throat cancer stomach and pancreas cancer premature aging defects In addition, smoking increases ear and lung infections in children of smokers. FOLLOW-UP CARE: If you have been referred to a physician for follow-up care, call the physician s office for an appointment as you were instructed or within the next two days. If you experience worsening or a significant change in your symptoms, notify the physician immediately or return to the Emergency Department at any time for re-evaluation. Prescriptions: Albuterol Sulfate [Proair HFA Inhalation Aerosol 8.5 gm MDI] 2 puff IH Q4H PRN # 1 mdi PRN Reason: Amox Tr/Potassium Clavulanate [Augmentin 875-125 Tablet] 1 tab PO BID 10 Days Prednisone [Deltasone 20 mg Tablet] 3 tab PO DAILY 4 Days Promethazine HCl [Phenergan 25 mg Tablet] 1 - 2 tab PO Q6H PRN #10 tablet PRN Reason: Forms: Elevated Blood Pressure Referrals: CLEO STEPHENS MD [Primary Care Provider] - Follow up as needed
[2017-01-06 23:18] LABS: ALANINE AMINOTRANSFERASE 26 U/L (9-52); ALKALINE PHOSPHATASE 162 U/L (38-126); ASPARTATE AMINO TRANSFERASE 31 U/L (14-36); BILIRUBIN,DIRECT 0.5 mg/dL (0.0-0.4); BILIRUBIN,TOTAL 1.2 mg/dL (0.2-1.3); BLOOD UREA NITROGEN 14 mg/dL (7-20); CALCIUM 10.3 mg/dL (8.4-10.2); CARBON DIOXIDE 21 mmol/L (22-30); CHLORIDE 103 mmol/L (98-107); CREATINE KINASE 51 U/L (30-135); CREATININE RESULT 0.62 mg/dL (0.52-1.25); GLUCOSE 134 mg/dL (75-110); POTASSIUM 3.4 mmol/L (3.6-5.0); TOTAL PROTEIN 9.1 g/dL (6.3-8.2)
[2017-01-06] MEDS ORDERED: PREDNISONE 20 MG TABLET PO ONE (23:25)
[2017-01-06 23:26] LABS: CREATINE KINASE MB 0.73 ng/mL (<4.55)
[2017-01-06 23:28] LABS: TROPONIN I < 0.012 ng/mL
[2017-01-06 23:29] LABS: ANION GAP 19 (5-19); SODIUM 142.9 mmol/L (137-145)
[2017-01-06 23:36] LABS: BAND NEUTROPHILS % (MANUAL) 1 % (3-5); BASOPHILS % (MANUAL) 0 % (0-2); EOSINOPHILS % (MANUAL) 0 % (0-6); LYMPHOCYTES % (MANUAL) 21 % (13-45); TOTAL CELLS COUNTED 100
[2017-01-06 23:38] LABS: ANISOCYTOSIS SLIGHT; OVALOCYTES SLIGHT; POIKILOCYTOSIS SLIGHT; POLYCHROMASIA SLIGHT; TOXIC GRANULATION SLIGHT; TOXIC VACUOLATION PRESENT
[2017-01-07 00:05] VITALS: BP 168/100
[2017-01-07] MEDS ORDERED: ONDANSETRON HCL INJ/PF 4 MG/2 ML SDV IV ONE (00:18)
[2017-01-07] MEDS ORDERED: PROMETHAZINE HCL 25 MG TABLET PO ONE (00:18)
[2017-01-07] MEDS ORDERED: AMOXICILLIN TR/POT CLAVULANATE 500-125 MG TAB PO ONE (00:18)
[2017-01-07] MEDS ORDERED: ONDANSETRON 4 MG TAB.RAPDIS PO ONE (00:22)
[2017-01-07] MEDS ORDERED: DIPHENHYDRAMINE HCL 50 MG CAPSULE PO ONE (00:34)
== END 2017-01-07 00:20 | disposition home or self-care (01) ==
LOC: ER 19:41
DX: J40 Bronchitis, not specified as acute or chronic (principal); R05 Cough; R07.89 Other chest pain; D72.829 Elevated white blood cell count, unspecified; R09.81 Nasal congestion; R68.83 Chills (without fever); I10 Essential (primary) hypertension; J34.89 Other specified disorders of nose and nasal sinuses; F17.200 Nicotine dependence, unspecified, uncomplicated; Z71.6 Tobacco abuse counseling
CPT/HCPCS: 93005; 94640; 99285; 36415; 82553; 82550; 85025; 80053; 84484; 71010; 93010; J3490 ×3; S0119; J7512; J7620

== ENCOUNTER 2017-04-22 11:05 | Inpatient (IN) | payer BC, MEDICAID, OTHER ==
--- NOTE | 2017-04-22 11:43 | ER Document Report ---
ED Medical Screen (RME) - General Chief Complaint: Weakness Stated Complaint: STROKE SYMPTOMS Time Seen by Provider: 04/22/17 11:38 Notes: 61-year-old female sent from the office to evaluate for possible stroke. Reports onset symptoms Thursday of slurred speech, thick tongue, left upper extremity weakness and dragging the left leg. It is much better today than it was yesterday according to a friend who is here with her. I have greeted and performed a rapid initial assessment of this patient. A comprehensive ED assessment and evaluation of the patient, analysis of test results and completion of the medical decision making process will be conducted by additional ED providers. TRAVEL OUTSIDE OF THE [place] IN LAST 30 DAYS: No - Related Data Allergies/Adverse Reactions: No Known Allergies Allergy (Verified 04/22/17 11:11) Home Medications: Current Home Medications Gabapentin 600 mg PO TID 04/22/17 [History] Hydromorphone HCl [Dilaudid] 4 mg PO Q6 PRN 04/22/17 [History] Past Medical History - Past Medical History Cardiac Medical History: Reports: Hx Hypertension Renal/ Medical History: Denies: Hx Peritoneal Dialysis Musculoskeltal Medical History: Reports Hx Arthritis Past Surgical History: Reports: Hx Cholecystectomy - Immunizations Hx Diphtheria, Pertussis, Tetanus Vaccination: Yes Physical Exam - Vital signs Vitals: Temp Pulse Resp BP Pulse Ox 98.8 F 78 20 130/75 H 96 04/22/17 11:14 04/22/17 11:14 04/22/17 11:14 04/22/17 11:14 04/22/17 11:14 Course - Vital Signs Vital signs: Temp Pulse Resp BP Pulse Ox 98.8 F 78 20 130/75 H 96 04/22/17 11:14 04/22/17 11:14 04/22/17 11:14 04/22/17 11:14 04/22/17 11:14
[2017-04-22 12:18] LABS: ABSOLUTE BASOPHILS # (AUTO) 0.1 10^3/uL (0.0-0.2); ABSOLUTE EOSINOPHILS # (AUTO) 0.1 10^3/uL (0.0-0.6); ABSOLUTE LYMPHOCYTES (AUTO) 2.4 10^3/uL (0.5-4.7); ABSOLUTE MONOCYTES (AUTO) 1.5 10^3/uL (0.1-1.4); ABSOLUTE NEUT (AUTO) 6.6 10^3/uL (1.7-8.2); BASOPHILS % (AUTO) 0.5 % (0-2); EOSINOPHILS % (AUTO) 0.8 % (0-6); HEMATOCRIT 42.8 % (36.0-47.0); HEMOGLOBIN 14.9 g/dL (12.0-15.5); HGB HCT DIFFERENCE 1.9; LYMPHOCYTES % (AUTO) 22.7 % (13-45); MEAN CORPUSCULAR HEMOGLOBIN 34.1 pg (27.0-33.4); MEAN CORPUSCULAR HGB CONC 34.9 g/dL (32.0-36.0); MEAN CORPUSCULAR VOLUME 98 fl (80-97); MONOCYTES % (AUTO) 14.3 % (3-13); RED BLOOD COUNT 4.38 10^6/uL (3.72-5.28); RED CELL DISTRIBUTION WIDTH 13.1 % (11.5-14.0); SEGMENTED NEUTROPHILS % (AUTO) 61.7 % (42-78); WHITE BLOOD COUNT 10.7 10^3/uL (4.0-10.5)
[2017-04-22 12:28] LABS: ALANINE AMINOTRANSFERASE 47 U/L (9-52); ALBUMIN 3.6 g/dL (3.5-5.0); ALKALINE PHOSPHATASE 129 U/L (38-126); ANION GAP 10 (5-19); ASPARTATE AMINO TRANSFERASE 79 U/L (14-36); BILIRUBIN,DIRECT 0.8 mg/dL (0.0-0.4); BILIRUBIN,TOTAL 1.3 mg/dL (0.2-1.3); BLOOD UREA NITROGEN 12 mg/dL (7-20); CALCIUM 8.8 mg/dL (8.4-10.2); CARBON DIOXIDE 29 mmol/L (22-30); CHLORIDE 98 mmol/L (98-107); CREATINE KINASE 573 U/L (30-135); CREATININE RESULT 0.75 mg/dL (0.52-1.25); GLUCOSE 138 mg/dL (75-110); SODIUM 136.5 mmol/L (137-145); TOTAL PROTEIN 8.1 g/dL (6.3-8.2)
[2017-04-22 12:35] LABS: POTASSIUM 2.6 mmol/L (3.6-5.0)
--- NOTE | 2017-04-22 12:41 | RADIOLOGY REPORT (SQ) ---
EXAM DESCRIPTION: CT HEAD WITHOUT COMPLETED DATE/TIME: 04/22/2017 12:32 pm REASON FOR STUDY: slurred speech, left sided weakness, x 2 days COMPARISON: CT brain 05/20/2016 TECHNIQUE: Axial images acquired through the brain without intravenous contrast. Images reviewed wi th bone, brain and subdural windows. Images stored on PACS. All CT scanners at this facility use dose modulation, iterative reconstruction, and/or weight based d osing when appropriate to reduce radiation dose to as low as reasonably achievable (ALARA). [facility]: Dose Right [facility]: CareDose [facility]: Dose Right [facility]: Teradose 4D [facility]: [id number] RADIATION DOSE: mGy. LIMITATIONS: None. FINDINGS: VENTRICLES: Normal size and contour. CEREBRUM: No masses. No hemorrhage. No midline shift. Normal torres/white matter differentiation. N o evidence for acute infarction. CEREBELLUM: No masses. No hemorrhage. No alteration of density. No evidence for acute infarction. EXTRAAXIAL SPACES: No fluid collections. No masses. ORBITS AND GLOBE: No intra- or extraconal masses. Normal contour of globe without masses. CALVARIUM: No fracture. PARANASAL SINUSES: No fluid or mucosal thickening. SOFT TISSUES: No mass or hematoma. OTHER: No other significant finding. IMPRESSION: NORMAL BRAIN CT WITHOUT CONTRAST. TECHNICAL DOCUMENTATION: JOB ID: [id number] Quality ID # [id number]: Final reports with documentation of one or more dose reduction techniques (e.g., Au tomated exposure control, adjustment of the mA and/or kV according to patient size, use of iterative reconstruction technique) 2010 [employer]- All Rights Reserved
--- NOTE | 2017-04-22 12:57 | ER Document Report ---
ED General - General Information source: Patient TRAVEL OUTSIDE OF THE [place] IN LAST 30 DAYS: No - HPI Onset: Other - Thursday04/19/17 Onset/Duration: Persistent, Worse Associated symptoms: Other - see above <LORRAINE MAXWELL - Last Filed: 04/22/17 13:32> <SANJIV DAVIS - Last Filed: 04/22/17 17:21> - General Chief Complaint: Weakness Stated Complaint: STROKE SYMPTOMS Time Seen by Provider: 04/22/17 11:38 Notes: Patient is a 61 year old female who presents to the ED with complaints of dragging her left leg, left arm weakness, thick tongue, and staring off since Thursday. Patient symptoms have progressively worsened since initial onset. Patient went to see Dr. Quiroz today and was sent to the ED for evaluation. Patient had a CVA in June 2016 and was placed on an aspirin regimen. Patient has taken her Aspirin today. Patient has had no recent medication changes. Patient denies hitting her head. She also has not had any urinary symptoms or bowel changes. PCP: Dr. Quiroz (LORRAINE MAXWELL) - Related Data Allergies/Adverse Reactions: No Known Allergies Allergy (Verified 04/22/17 11:11) Home Medications: Current Home Medications Gabapentin [Gabapentin] 600 mg PO Q8 04/22/17 [History] Hydrochlorothiazide [Hydrochlorothiazide] 25 mg PO DAILY 04/22/17 [History] Nadolol [Nadolol] 40 mg PO DAILY 04/22/17 [History] Past Medical History - General Information source: Patient - Social History Smoking Status: Current Every Day Smoker Family History: Reviewed & Not Pertinent Patient has suicidal ideation: No Patient has homicidal ideation: No - Past Medical History Cardiac Medical History: Reports: Hx Hypertension Denies: Hx Hypercholesterolemia Endocrine Medical History: Denies: Hx Diabetes Mellitus Type 1, Hx Diabetes Mellitus Type 2 Renal/ Medical History: Denies: Hx Peritoneal Dialysis Musculoskeltal Medical History: Reports Hx Arthritis Past Surgical History: Reports: Hx Cholecystectomy - Immunizations Hx Diphtheria, Pertussis, Tetanus Vaccination: Yes <LORRAINE MAXWELL - Last Filed: 04/22/17 13:32> Review of Systems - Review of Systems Constitutional: See HPI, Weakness EENT: No symptoms reported Cardiovascular: No symptoms reported Respiratory: No symptoms reported Gastrointestinal: See HPI. denies: Diarrhea, Constipation Genitourinary: See HPI. denies: Dysuria Female Genitourinary: No symptoms reported Musculoskeletal: No symptoms reported Skin: No symptoms reported Hematologic/Lymphatic: No symptoms reported Neurological/Psychological: See HPI, Weakness, Speech impairment, Other - staring off <LORRAINE MAXWELL - Last Filed: 04/22/17 13:32> Physical Exam <LORRAINE MAXWELL - Last Filed: 04/22/17 13:32> <SANJIV DAVIS - Last Filed: 04/22/17 17:21> - Vital signs Vitals: Temp Pulse Resp BP Pulse Ox 98.8 F 78 20 130/75 H 96 04/22/17 11:14 04/22/17 11:14 04/22/17 11:14 04/22/17 11:14 04/22/17 11:14 - Notes Notes: GENERAL: Alert, interacts well. No acute distress. HEAD: Normocephalic, atraumatic. EYES: Pupils equal, round, and reactive to light. Extraocular movements intact. ENT: Oral mucosa moist, tongue midline. NECK: Full range of motion. Supple. Trachea midline. LUNGS: Clear to auscultation bilaterally, no wheezes, rales, or rhonchi. No respiratory distress. HEART: Regular rate and rhythm. 2/6 systolic murmur. No gallops, or rubs. ABDOMEN: Some tenderness to palpation diffusely across lower abdomen more on the right than the left, not over McBurneys point. Non-distended. Bowel sounds present in all 4 quadrants. EXTREMITIES: Moves all 4 extremities spontaneously. No edema. No cyanosis. NEUROLOGICAL: Alert and oriented x3. Normal speech. NIH=2 PSYCH: Normal affect, normal mood. SKIN: Warm, dry, normal turgor. No rashes or lesions noted (LORRAINE MAXWELL) 4/5 muscle strength on the left upper and lower extremity, 5 out of 5 muscle strength in the right upper and lower extremity. (SANJIV DAVIS) Course - Laboratory Result Diagrams: 04/22/17 12:00 04/22/17 12:00 - Consults Dr. Quiroz Time consulted: 13:19 Consulted provider: will see as inpatient <LORRAINE MAXWELL - Last Filed: 04/22/17 13:32> - Laboratory Result Diagrams: 04/22/17 12:00 04/22/17 12:00 <SANJIV DAVIS - Last Filed: 04/22/17 17:21> - Re-evaluation Re-evalutation: 04/22/17 13:26 CBC shows leukocytosis 10.7, no anemia, there is a monocytosis of 14.3, chemistries show significant hypokalemia at 2.6, magnesium is pending, otherwise grossly unremarkable, troponin negative, CT scan of the head does not show any acute infarction nor does it show any bleeding. Patient is well outside of the timeframe for TPA as her last known well was Thursday. This was discussed with her and friend at bedside. Patient has been discussed with Dr. Quiroz who accepts the patient to his service as a full admission on the [facility]. 04/22/17 13:28 K rider of 80 mEq has been ordered. Hypokalemia likely explained by her losartan/hydrochlorothiazide. (SANJIV DAVIS) - Vital Signs Vital signs: Temp Pulse Resp BP Pulse Ox 98.8 F 62 27 H 100/61 99 04/22/17 11:14 04/22/17 13:15 04/22/17 16:01 04/22/17 16:01 04/22/17 16:01 - Laboratory Laboratory results interpreted by me: 04/22/17 04/22/17 04/22/17 12:00 12:00 12:50 WBC 10.7 H MCV 98 H MCH 34.1 H Monocytes % 14.3 H Absolute Monocytes 1.5 H Sodium 136.5 L Potassium 2.6 L* Glucose 138 H Direct Bilirubin 0.8 H AST 79 H Alkaline Phosphatase 129 H Creatine Kinase 573 H Urine Blood SMALL H Urine Nitrite POSITIVE H Urine Urobilinogen 4.0 H Ur Leukocyte Esterase LARGE H - EKG Interpretation by Me Additional EKG results interpreted by me: 04/22/17 13:28 EKG shows sinus rhythm at a rate of 63 with a first-degree AV block with NC interval of 220, normal axis, no ST segment elevations or depressions, concordant T-wave inversions noted in lead III per my interpretation. (SANJIV DAVIS) - Consults Dr. Quiroz Reason for consultation: 04/22/17 13:19 Discussed patient. Patient is accepted for full admission to [facility]. (LORRAINE MAXWELL) Discharge <LORRAINE MAXWELL - Last Filed: 04/22/17 13:32> - Discharge Admitting Provider: Gabriella Unit Admitted: [facility] <SANJIV DAVIS - Last Filed: 04/22/17 17:21> - Discharge Clinical Impression: Acute ischemic stroke, Hypokalemia UTI (urinary tract infection) Qualifiers: Urinary tract infection type: acute cystitis Hematuria presence: without hematuria Qualified Code(s): N30.00 - Acute cystitis without hematuria Condition: Fair Disposition: ADMITTED INPATIENT Scribe Attestation: 04/22/17 17:21 I personally performed the services described in the documentation, reviewed and edited the documentation which was dictated to the scribe in my presence, and it accurately records my words and actions. (SANJIV DAVIS) Scribe Documentation - Scribe Written by Tazibe:: zach Walls, 04/22/2017, 1303 acting as scribe for :: Elaine <LORRAINE MAXWELL - Last Filed: 04/22/17 13:32> ED NIH Stroke Scale - NIH Stroke Scale When completed:: Protocol *: 1. NIH scale should be completed with appropriate accompanying assessment tools. *: 2. The NIH should reflect what the patient is capable of doing and should not be coached by the clinician. 1a. Level of Consciousness: 0=Alert;keenly responsive -: 1=Drowsy -: 2=Obtunded -: 3=Coma/unresponsive or reflex to noxious stimuli. 1a. Responses: 0 1b. Orientation Questions: a. What month is it? -: b. How old are you? -: 0=Answers both questions correctly. -: 1=Answers one question correctly or patient is intubated or has orotracheal trauma. -: 2=Answers neither question correctly. 1b. Responses: 0 1c. Response to commands: a. Open and close eyes? -: b. Tunnel Miner and release hand? -: Credit is given despite weakness. Demonstration of task is permitted. Substitute command if hands cannot be used. -: 0=Performs both tasks correctly -: 1=Performs one task correctly -: 2=Performs neither task correctly 1c. Responses: 0 2. Gaze: Establish eye contact and instruct patient to "Follow my finger" -: 0=Normal -: 1=Partial gaze palsy. Gaze is abnormal in one or both eyes, but where forced deviation or total gaze paresis is not present. -: 2=Forced deviation or total gaze paresis. 2. Responses: 0 3. Visual [place]: Sees fingers in all four quadrants. -: 0=No visual loss. -: 1=Partial hemianopsia. -: 2=Complete hemianopsia. -: 3=Bilateral hemianopsia (including Cortical blindness) 3. Responses: 0 4. Facial Movement: Instruct patient to: -: a. Show me your teeth -: b. Raise your eyebrows -: c. Close your eyes -: d. Smile -: 0=Normal symmetrical movement -: 1=Minor paralysis (flattened nasolabial fold, asymmetry on smiling). -: 2=Partial paralysis (total or near total paralysis of lower face). -: 3=Complete paralysis of upper and lower face 4. Responses: 0 5. Motor functions (left arm): Alternate sides and extend each arm with palms down (90 degrees if sitting or 45 degrees for supine). -: 0=No drift;limb holds for full 10 seconds. -: 1=Drift; limb holds but drifts down before full 10 seconds, but does not hit bed. -: 2=Some effort against gravity; limb cannot get to or maintain position. -: 3=No effort against gravity; limb falls. -: 4=No movement. -: UN=Amputation, joint fusion, explain in comments. 5. Responses (left arm): 1 5. Motor Functions (right arm): Alternate sides and extend each arm with palms down (90 degrees if sitting or 45 degrees for supine). -: 0=No drift;limb holds for full 10 seconds. -: 1=Drift; limb holds but drifts down before full 10 seconds, but does not hit bed. -: 2=Some effort against gravity; limb cannot get to or maintain position. -: 3=No effort against gravity; limb falls. -: 4=No movement. -: UN=Amputation, joint fusion, explain in comments. 5. Responses (right arm): 0 6. Motor Functions (left leg): With patient lying supine, alternate sides and extend each leg (30 degrees always while supine). -: 0=No drift, leg holds position for full 5 seconds -: 1=Drift; leg falls before full 5 seconds but does not hit bed. -: 2=Some effort against gravity, leg falls to bed but some effort against gravity. -: 3=No effort against gravity, leg falls to bed immediately. -: 4=No movement. -: UN=Amputation, joint fusion; explain in comments. 6. Responses (left leg): 1 6. Motor Functions (right leg): With patient lying supine, alternate sides and extend each leg (30 degrees always while supine). -: 0=No drift, leg holds position for full 5 seconds -: 1=Drift; leg falls before full 5 seconds but does not hit bed. -: 2=Some effort against gravity, leg falls to bed but some effort against gravity. -: 3=No effort against gravity, leg falls to bed immediately. -: 4=No movement. -: UN=Amputation, joint fusion; explain in comments. 6. Responses (right leg): 0 7. Limb Ataxia: With eyes open instruct patient to: -: a. "Touch your finger to your nose". -: b. "Touch your heel to your carlos" -: 0=Absent -: 1=Present in one limb. -: 2=Present in two limbs. -: UN=Amputation or joint fusion; explain in comments. 7. Responses: 0 8. Sensory: Test sensation using pinprick or noxious stimuli. Test as many body parts as possible. -: 0=Normal;no sensory loss -: 1=Mile to moderate sensory loss (patient feels pin prick but is less sharp on affected side). -: 2=Severe or total sensory loss. 8. Responses: 0 9. Best Language: Instruct patient to: -: a. "Describe what you see in this picture." -: b. "Name the items in this picture." -: c. "Read these sentences." -: 0=No aphasia, normal -: 1=Mild to moderate aphasia. -: 2=Severe aphasia -: 3=Mute, global aphasia, no usable speech or auditory comprehension. 9. Responses: 0 10. Articulation, Dysarthia: Instruct patient to: -: "Read these words" or "Repeat these words" -: 0=Normal -: 1=Mild to moderate; patient may slur some words but can be understood without difficulty. -: 2=Severe; patients speech so slurred as to be unintelligible in the absence of dysphasia. -: UN=Intubated or other physical barrier, explain in comments. 10. Responses: 0 11. Extinction or inattention: 0=No abnormality -: 1= Visual, tactile, auditory, spatial, or personal inattention or extinction to bilateral simulation in one or the sensory modalities. -: 2=Profound karen-inattention or karen-inattention to more than one modality; does not recognize own hand. 11. Responses: 0 Total Score: 2 <LORRAINE MAXWELL - Last Filed: 04/22/17 13:32> ED [employer]te[employer]ase [employer]/Exc Criteria - Date/Time patient last known well: Date/Time: 04/19/17 10:00 - Date/Time patient arrived in ED: _: 04/22/17 11:05 - Inclusion Criteria: 1: Patient presented to ED within 3 hours of acute ischemic stroke symptom onset ? -: No 2: Did baseline CT exclude intracranial hemorrhage and/or other risk factors? -: Yes 3: Is the age of the patient 18 years of age or greater? -: Yes : If any of the above questions are answered "NO" then stop, patient is not a candidate for Alteplase, : If all of the above questions are answered "YES" then continue with Exclusion Criteria. - The patient is: -: Included and is eligible to receive Alteplase. *Initiate bed placement at higher level of care* --: No Reviewd risks & benefits of thrombolytic therapy: I have reviewed the risks and benefits of thrombolytic therapy with the patient and/or his/her family. -: Excluded and not eligible to receive Alteplase for the above exclusions. --: Yes - out of timeframe -: Excluded and not eligible to receive Alteplase for other reasons (specify in comments): - Diagnosis of TIA: -: Patient presented with transient symptoms that are now resolved and no other neurologic findings are currently present. List symptoms in comments. -: No -: Patient is NOT a candidate for tPA. -: Yes -: ____(put name in comment) has been consulted for admission and continued evaluation of risk factor assessment. Comment: Gabriella <SANJIV DAVIS - Last Filed: 04/22/17 17:21>
[2017-04-22] MEDS: POTASSI CL 20 MEQ/50 ML RIDER 50 ML IV SCH ×3 (14:02→22:38)
[2017-04-22 14:09] LABS: APPEARANCE,URINE CLOUDY; BILIRUBIN,URINE NEGATIVE (NEGATIVE); GLUCOSE, URINE NEGATIVE (NEGATIVE); KETONES,URINE NEGATIVE (NEGATIVE); LEUKOCYTE ESTERASE,URINE LARGE (NEGATIVE); NITRITE,URINE POSITIVE (NEGATIVE); PROTEIN,URINE NEGATIVE (NEGATIVE); URINE SPECIFIC GRAVITY 1.011
[2017-04-22] MEDS ORDERED: CEPHALEXIN 500 MG CAPSULE PO ONE (14:18)
[2017-04-22] MEDS ORDERED: ZOLPIDEM TARTRATE 5 MG TABLET PO PRN (15:39)
[2017-04-22] MEDS ORDERED: ACETAMINOPHEN 325 MG TABLET PO PRN (15:39)
[2017-04-22] MEDS ORDERED: DOCUSATE SODIUM 100 MG CAPSULE PO PRN (15:39)
[2017-04-22] MEDS ORDERED: ENOXAPARIN SODIUM INJ 40 MG/0.4 ML DISP.SYRIN SUBCUT ONE (16:00)
--- NOTE | 2017-04-22 17:19 | PDOC H&P ---
History of Present Illness Admission Date/PCP: 04/22/17 15:39 CLEO STEPHENS Patient complains of: Left sided weakness, slurring of speech for 3 days. History of Present Illness: TOM COWAN is a 61 year old female with hx of HTN/Hyperlipidemia/PAD/CVD s.p TIA/GERD/Chronic back pain/Rhinitis/Vitamin D def/Obesity/Hep. s.p treatment /Chronic smoker who was in he baseline until 3 days ago when she noticed left sided weakness, slurring of speech that was progressively getting worse and on the day of presentation, she called her PCP's office and she was directed to go to ER for evaluation for stroke. Past Medical History Cardiac Medical History: Reports: Hypertension Denies: Hyperlipidema Endocrine Medical History: Denies: Diabetes Mellitus Type 1, Diabetes Mellitus Type 2 Musculoskeltal Medical History: Reports: Arthritis Past Surgical History Past Surgical History: Reports: Cholecystectomy Social History Smoking Status: Current Every Day Smoker Family History Family History: Reviewed & Not Pertinent Parental Family History Reviewed: Yes Children Family History Reviewed: Yes Sibling(s) Family History Reviewed.: Yes Medication/Allergy Home Medications: Gabapentin [Gabapentin] 600 mg PO Q8 04/22/17 Hydrochlorothiazide [Hydrochlorothiazide] 25 mg PO DAILY 04/22/17 Nadolol [Nadolol] 40 mg PO DAILY 04/22/17 Allergies/Adverse Reactions: No Known Allergies Allergy (Verified 04/22/17 11:11) Review of Systems All systems: as per PMH Constitutional: PRESENT: as per HPI Eyes: PRESENT: as per HPI Ears: PRESENT: as per HPI Nose, Mouth, and Throat: PRESENT: as per HPI Breasts: PRESENT: as per HPI Cardiovascular: PRESENT: as per HPI Respiratory: PRESENT: as per HPI Gastrointestinal: PRESENT: as per HPI Genitourinary: PRESENT: as per HPI Musculoskeletal: PRESENT: back pain Integumentary: PRESENT: as per HPI Neurological: PRESENT: abnormal speech, focal weakness, weakness Psychiatric: PRESENT: as per HPI Endocrine: PRESENT: as per HPI Hematologic/Lymphatic: PRESENT: as per HPI Physical Exam Vital Signs: Temp Pulse Resp BP Pulse Ox 98.8 F 62 27 H 100/61 99 04/22/17 11:14 04/22/17 13:15 04/22/17 16:01 04/22/17 16:01 04/22/17 16:01 General appearance: PRESENT: no acute distress, cooperative, obese, well- nourished Head exam: PRESENT: atraumatic, normocephalic Eye exam: PRESENT: EOMI, PERRLA Ear exam: PRESENT: normal external ear exam, TM's normal bilaterally Mouth exam: PRESENT: neck supple Neck exam: PRESENT: full ROM Respiratory exam: PRESENT: clear to auscultation duglas, symmetrical Cardiovascular exam: PRESENT: +S1, +S2 Pulses: PRESENT: +2 pedal pulses bilateral GI/Abdominal exam: PRESENT: normal bowel sounds, soft Rectal exam: PRESENT: deferred Neurological exam: PRESENT: alert, awake, oriented to person, oriented to place , oriented to time Additional comments: Power 4/5 on left upper and lower extremities; DTR- intact.Plantar reflex- flexor duglas. Psychiatric exam: PRESENT: anxious Results Impressions: Head CT 04/22/17 11:42 IMPRESSION: NORMAL BRAIN CT WITHOUT CONTRAST. Assessment & Plan - Diagnosis (1) Acute ischemic stroke Is this a current diagnosis for this admission?: YesPlan: Ct with Aspirin 325 mg qd po; Atorvastatin 40 mg qhs po; cardiac diet; f/u MRI head, Carotid doppler US, ECHO reports; f/u 4 hourly neuro checks; F/u PTOT and speech therapy consults. (2) Hypokalemia Is this a current diagnosis for this admission?: YesPlan: She received 80 MEQ of KCL IV at ER. Monitor chemistries daily; Her EKG is normal. Her Mg level is normal. (3) Hypertension Qualifiers: Hypertension type: essential hypertension Qualified Code(s): I10 - Essential (primary) hypertension Is this a current diagnosis for this admission?: YesPlan: Ct with Losartan 50 mg qd po; 2 g sodium diet. Hold HCTZ 12.5 mg for now. (4) Hyperlipidemia Qualifiers: Hyperlipidemia type: unspecified Qualified Code(s): E78.5 - Hyperlipidemia, unspecified Is this a current diagnosis for this admission?: YesPlan: Ct with Atorvastatin 40 mg qhs po; 200 mg cholesterol diet. (5) PAD (peripheral artery disease) Is this a current diagnosis for this admission?: YesPlan: Ct with Aspirin 325 mg qd po; smoking cessation counseling. (6) Reflux esophagitis Is this a current diagnosis for this admission?: YesPlan: Ct with Prevacid 30 mg qd po since we do not have Protonix in our formulary. (7) Lumbago Qualifiers: Chronicity: unspecified Is this a current diagnosis for this admission?: YesPlan: Ct with Dilaudid 2 mg TID prn PO; Gabapentin 300 mg q6h po. (8) Rhinitis, allergic Is this a current diagnosis for this admission?: YesPlan: Ct with Claritin 10mg qd po. (9) Vitamin D deficiency Is this a current diagnosis for this admission?: YesPlan: Ct with Vitamin D 29333af weekly po. (10) Smoker Is this a current diagnosis for this admission?: YesPlan: Ct with Nicotine patch 21 mg qd; smoking cessation counseling. (11) DVT prophylaxis Is this a current diagnosis for this admission?: YesPlan: Ct with Lovenox 40 mg qd subcut; SCD. - Time Time Spent: 30 to 50 Minutes Smoking Cessation Education: 3 to 10 minutes Medications reviewed and adjusted accordingly: Yes Anticipated discharge: Home Within: within 72 hours - Inpatient Certification Medical Necessity: Failure to Improve With Outpatient Therapy, Significant Comorbidiites Make Outpatient Treatment Too Risky, Need Close Monitoring Due to Risk of Patient Decompensation, Need For Continuous Telemetry Monitoring, Need for Neurological Checks, Risk of Complication if Not Cared For in Hospital, Risk of Diagnosis Which Will Require Inpatient Eval/Care/Monitoring
[2017-04-22] MEDS: GABAPENTIN 300 MG CAPSULE PO SCH ×2 (17:32→22:34)
[2017-04-22] MEDS ORDERED: HYDROMORPHONE HCL 2 MG TABLET PO SCH (18:00)
--- NOTE | 2017-04-22 19:42 | RADIOLOGY REPORT (SQ) ---
EXAM DESCRIPTION: MRI HEAD WITHOUT COMPLETED DATE/TIME: 04/22/2017 7:28 pm REASON FOR STUDY: CVA COMPARISON: CT brain done earlier the same day. TECHNIQUE: Multiplanar imaging includes non-contrasted T1, T2, FLAIR, and diffusion with ADC map seq uences. Images stored on PACS. LIMITATIONS: None. FINDINGS: ANATOMY: No anomalies. Normal vascular flow voids. Pituitary fossa normal. CSF SPACES: Normal in size and contour. No hemorrhage. CEREBRUM: Sulci and gyri normal in size and contour. Normal white matter signal on FLAIR imaging. No evidence of hemorrhage, mass, or extraaxial fluid collection. POSTERIOR FOSSA: No signal alteration. No hemorrhage. No edema, masses or mass effect. Internal stevo tory canals, cerebello-pontine angles, mastoids normal. DIFFUSION IMAGING: Negative for acute or sub-acute infarction. ORBITS: No masses. Globes normal. PARANASAL SINUSES: No fluid levels. Mucosa normal. OTHER: No other significant finding. IMPRESSION: NORMAL MRI OF THE BRAIN WITHOUT INTRAVENOUS GADOLINIUM CONTRAST. EVIDENCE OF ACUTE STROKE: NO. TECHNICAL DOCUMENTATION: JOB ID: [id number] [employer]- All Rights Reserved
[2017-04-22] MEDS: ATORVASTATIN CALCIUM 40 MG TABLET PO SCH (22:34)
[2017-04-22] MEDS: POTASSI CL 20 MEQ/50 ML RIDER 20 MEQ/50 ML RTUPB IV SCH (22:37)
[2017-04-23] MEDS: POTASSI CL 20 MEQ/50 ML RIDER 20 MEQ/50 ML RTUPB IV SCH (02:47)
[2017-04-23 05:01] LABS: ABSOLUTE BASOPHILS # (AUTO) 0.1 10^3/uL (0.0-0.2); ABSOLUTE EOSINOPHILS # (AUTO) 0.1 10^3/uL (0.0-0.6); ABSOLUTE LYMPHOCYTES (AUTO) 3.3 10^3/uL (0.5-4.7); ABSOLUTE MONOCYTES (AUTO) 1.5 10^3/uL (0.1-1.4); ABSOLUTE NEUT (AUTO) 5.2 10^3/uL (1.7-8.2); BASOPHILS % (AUTO) 0.5 % (0-2); HEMATOCRIT 39.2 % (36.0-47.0); HEMOGLOBIN 13.7 g/dL (12.0-15.5); HGB HCT DIFFERENCE 1.9; LYMPHOCYTES % (AUTO) 32.6 % (13-45); MEAN CORPUSCULAR HEMOGLOBIN 34.5 pg (27.0-33.4); MEAN CORPUSCULAR HGB CONC 34.9 g/dL (32.0-36.0); MEAN CORPUSCULAR VOLUME 99 fl (80-97); MONOCYTES % (AUTO) 14.5 % (3-13); RED BLOOD COUNT 3.97 10^6/uL (3.72-5.28); RED CELL DISTRIBUTION WIDTH 13.4 % (11.5-14.0); SEGMENTED NEUTROPHILS % (AUTO) 51.4 % (42-78); WHITE BLOOD COUNT 10.2 10^3/uL (4.0-10.5)
[2017-04-23] MEDS: GABAPENTIN 300 MG CAPSULE PO SCH ×4 (05:07→21:27)
[2017-04-23] MEDS: LANSOPRAZOLE 30 MG TAB.RAP.DR PO SCH (05:07)
[2017-04-23 05:28] LABS: ALANINE AMINOTRANSFERASE 40 U/L (9-52); ALBUMIN 2.8 g/dL (3.5-5.0); ALKALINE PHOSPHATASE 144 U/L (38-126); ANION GAP 7 (5-19); ASPARTATE AMINO TRANSFERASE 52 U/L (14-36); BILIRUBIN,DIRECT 0.6 mg/dL (0.0-0.4); BILIRUBIN,TOTAL 0.9 mg/dL (0.2-1.3); BLOOD UREA NITROGEN 9 mg/dL (7-20); CARBON DIOXIDE 24 mmol/L (22-30); CHLORIDE 110 mmol/L (98-107); CHOLESTEROL 155.57 mg/dL (0-200); CREATINE KINASE 244 U/L (30-135); CREATININE RESULT 0.66 mg/dL (0.52-1.25); Direct HDL 18 mg/dL (>40); GLUCOSE 98 mg/dL (75-110); SODIUM 140.7 mmol/L (137-145); TOTAL PROTEIN 6.6 g/dL (6.3-8.2); TRIGLYCERIDES 146 mg/dL (<150)
[2017-04-23 05:39] LABS: CREATINE KINASE MB 0.45 ng/mL (<4.55); DIRECT LDL 114 mg/dL (<100)
[2017-04-23 05:53] LABS: TROPONIN I < 0.012 ng/mL
[2017-04-23] MEDS: HYDROMORPHONE HCL 2 MG TABLET PO SCH ×4 (09:30→21:28)
[2017-04-23] MEDS: ENOXAPARIN SODIUM INJ 40 MG/0.4 ML DISP.SYRIN SUBCUT SCH (09:31)
[2017-04-23] MEDS: POTASSIUM CHLORIDE 10 MEQ TABLET.SA PO SCH ×2 (09:31→18:04)
[2017-04-23] MEDS: LOSARTAN POTASSIUM 50 MG TABLET PO SCH (09:31)
[2017-04-23] MEDS: POTASSIUM CHLORIDE 20 MEQ/50 ML RTU IV SCH ×2 (09:31→13:30)
[2017-04-23] MEDS: ASPIRIN 325 MG TABLET PO SCH (09:32)
[2017-04-23] MEDS: NICOTINE 21 MG/24 HR PATCH.TD24 TD SCH (09:33)
[2017-04-23] MEDS: LORATADINE 10 MG TABLET PO SCH (09:34)
--- NOTE | 2017-04-23 13:23 | EKG REPORT ---
SEVERITY:- ABNORMAL ECG - SINUS RHYTHM FIRST DEGREE AV BLOCK : Confirmed by: Dayton Pacheco 23-Apr-2017 13:22:59
--- NOTE | 2017-04-23 13:23 | EKG REPORT ---
SEVERITY:- NORMAL ECG - SINUS RHYTHM : Confirmed by: Dayotn Pacheco 23-Apr-2017 13:22:53
[2017-04-23] MEDS ORDERED: ZOLPIDEM TARTRATE 5 MG TABLET PO PRN (15:22)
[2017-04-23] MEDS ORDERED: DOCUSATE SODIUM 100 MG CAPSULE PO PRN (15:24)
[2017-04-23] MEDS ORDERED: ACETAMINOPHEN 325 MG TABLET PO PRN (15:27)
--- NOTE | 2017-04-23 16:23 | PDOC PROGRESS REPORT ---
Subjective Progress Note for:: 04/23/17 Subjective:: She is feeling better. Her potassium was 3.0 and she was given KCL 20 MEQ IV x2 doses and put on KCL 20 MEQ PO BID. Monitor her chemistries daily; she had MRI head- normal and awaiting report of ECHO and Doppler US. For possible discharge home tomorrow. Physical Exam Vital Signs: Temp Pulse Resp BP Pulse Ox 98.5 F 66 19 131/70 H 100 04/23/17 11:47 04/23/17 11:47 04/23/17 11:47 04/23/17 11:47 04/23/17 11:47 Intake & Output 04/22/17 04/23/17 04/24/17 06:59 06:59 06:59 Intake Total 422 118 Balance 422 118 Weight 56.9 kg General appearance: PRESENT: no acute distress, cooperative, well-developed, well-nourished Head exam: PRESENT: atraumatic, normocephalic Eye exam: PRESENT: EOMI, PERRLA Ear exam: PRESENT: normal external ear exam, TM's normal bilaterally Mouth exam: PRESENT: neck supple, tongue midline Respiratory exam: PRESENT: clear to auscultation duglas, symmetrical Cardiovascular exam: PRESENT: +S1, +S2 Pulses: PRESENT: +2 pedal pulses bilateral GI/Abdominal exam: PRESENT: normal bowel sounds, soft Rectal exam: PRESENT: deferred Neurological exam: PRESENT: alert, awake, oriented to person, oriented to place , oriented to time Psychiatric exam: PRESENT: normal mood Results Laboratory Results: 04/23/17 04:17 04/23/17 04:17 04/23/17 04/23/17 04/23/17 04:17 04:17 04:17 WBC 10.2 RBC 3.97 Hgb 13.7 Hct 39.2 MCV 99 H MCH 34.5 H MCHC 34.9 RDW 13.4 Plt Count 129 L Seg Neutrophils % 51.4 Lymphocytes % 32.6 Monocytes % 14.5 H Eosinophils % 1.0 Basophils % 0.5 Absolute Neutrophils 5.2 Absolute Lymphocytes 3.3 Absolute Monocytes 1.5 H Absolute Eosinophils 0.1 Absolute Basophils 0.1 Sodium 140.7 Potassium 3.0 L* Chloride 110 H Carbon Dioxide 24 Anion Gap 7 BUN 9 Creatinine 0.66 Est GFR ( Amer) > 60 Est GFR (Non-Af Amer) > 60 Glucose 98 Calcium 8.0 L Total Bilirubin 0.9 AST 52 H ALT 40 Alkaline Phosphatase 144 H Total Protein 6.6 Albumin 2.8 L Triglycerides 146 Cholesterol 155.57 LDL Cholesterol Direct 114 H VLDL Cholesterol 29.0 HDL Cholesterol 18 L TSH 0.21 L 04/23/17 04/23/17 04:17 04:17 Creatine Kinase 244 H CK-MB (CK-2) 0.45 Troponin I < 0.012 Impressions: Head MRI 04/22/17 00:00 IMPRESSION: NORMAL MRI OF THE BRAIN WITHOUT INTRAVENOUS GADOLINIUM CONTRAST. EVIDENCE OF ACUTE STROKE: NO. Head CT 04/22/17 11:42 IMPRESSION: NORMAL BRAIN CT WITHOUT CONTRAST. Assessment & Plan - Diagnosis (1) Acute ischemic stroke Is this a current diagnosis for this admission?: YesPlan: Ct with Aspirin 325 mg qd po; Atorvastatin 40 mg qhs po; cardiac diet; f/u MRI head, Carotid doppler US, ECHO reports; f/u 4 hourly neuro checks; F/u PTOT and speech therapy consults. (2) Hypokalemia Is this a current diagnosis for this admission?: YesPlan: She received 80 MEQ of KCL IV at ER; we gave her additional KCL 20 MEQ IV x2 doses; we will put her on KCL 20 MEQ BID pO. Her EKG is normal. Her Mg level is normal.Monitor her chemistries daily. (3) Hypertension Qualifiers: Hypertension type: essential hypertension Qualified Code(s): I10 - Essential (primary) hypertension Is this a current diagnosis for this admission?: YesPlan: Ct with Losartan 50 mg qd po; 2 g sodium diet. Hold HCTZ 12.5 mg for now. (4) Hyperlipidemia Qualifiers: Hyperlipidemia type: unspecified Qualified Code(s): E78.5 - Hyperlipidemia, unspecified Is this a current diagnosis for this admission?: YesPlan: Ct with Atorvastatin 40 mg qhs po; 200 mg cholesterol diet. (5) PAD (peripheral artery disease) Is this a current diagnosis for this admission?: YesPlan: Ct with Aspirin 325 mg qd po; smoking cessation counseling. (6) Reflux esophagitis Is this a current diagnosis for this admission?: YesPlan: Ct with Prevacid 30 mg qd po since we do not have Protonix in our formulary. (7) Lumbago Qualifiers: Chronicity: unspecified Is this a current diagnosis for this admission?: YesPlan: Ct with Dilaudid 2 mg QID prn PO; Gabapentin 600 mg TID po. (8) Rhinitis, allergic Is this a current diagnosis for this admission?: YesPlan: Ct with Claritin 10mg qd po. (9) Vitamin D deficiency Is this a current diagnosis for this admission?: YesPlan: Ct with Vitamin D [id number] weekly po. (10) Smoker Is this a current diagnosis for this admission?: YesPlan: Ct with Nicotine patch 21 mg qd; smoking cessation counseling. (11) DVT prophylaxis Is this a current diagnosis for this admission?: YesPlan: Ct with Lovenox 40 mg qd subcut; SCD.
--- NOTE | 2017-04-23 19:44 | XCELERA REPORT ---
[address] [address] Transthoracic Echocardiogram Report Name: TOM COWAN Age: 61 yrs Gender: Female : 1955 Patient Status: Inpatient Patient Location: [id number]\S\308\S\A Study Date: 04/23/2017 10:51 AM Height: 56 in Weight: 120 lb BSA: 1.4 m2 Procedure: A complete two-dimensional transthoracic echocardiogram was performed (2D, M-mode, spectral and color flow Doppler). The study was technically adequate with some images being suboptimal in quality. Reason For Study: CVA Ordering Physician: CLEO STEPHENS Performed By: Maliha Escoto Interpretation Summary Left ventricular systolic function is low normal. There is mild concentric left ventricular hypertrophy. Doppler measurements suggest pseudonormalized left ventricular relaxation, which is associated with grade II/IV or mild to moderate diastolic dysfunction The left ventricle is grossly normal size. Not all wall segments were well visualized. Wall motion cannot be accurately commented on, but no definite regional wall motion abnormalities noted. The right ventricular systolic function is normal. The right atrium is normal in size The left atrial size is normal. There is a mild amount of mitral regurgitation There is no mitral valve stenosis. There is no aortic valve stenosis There is a mild amount of aortic regurgitation Tricuspid regurgitation jet envelope not well defined to measure RV systolic pressure accurately. There is a trace or physiologic amount of tricuspid regurgitation The aortic root is not well visualized. The inferior vena cava appeared normal and decreased > 50% with respiration (RAP 5-10 mmHg) There is no pericardial effusion. No definite cardiac source of CVA/TIA noted on this particular trans- thoracic study. Consider DORA if clinically indicated. May consider mobile cardiac telemetry monitoring (MCT) for ruling out transient AFIB. MMode/2D Measurements \T\ Calculations RVDd: 2.2 cm LVIDd: 4.2 cm FS: 33.6 % Ao root diam: 2.6 cm IVSd: 1.1 cm LVIDs: 2.8 cm EDV(Teich): 76.9 ml LVPWd: 0.95 cm ESV(Teich): 28.5 ml Ao root area: 5.3 cm2 EF(Teich): 62.9 % LA dimension: 2.8 cm Doppler Measurements \T\ Calculations MV E max parth: MV P1/2t max parth: Ao V2 max: AI max parth: 69.1 cm/sec 69.1 cm/sec 131.5 cm/sec 437.4 cm/sec MV A max parth: MV P1/2t: 82.9 msec Ao max PG: AI max P.4 cm/sec 6.9 mmHg 76.8 mmHg MV E/A: 0.82 MVA(P1/2t): 2.7 cm2 AI dec slope: MV dec slope: 244.0 cm/sec2 278.1 cm/sec2 MV dec time: AI P1/2t: 0.28 sec 460.7 msec LV V1 max PG: PA V2 max: PI end-d parth: TR max parth: 3.9 mmHg 77.5 cm/sec 128.1 cm/sec 217.2 cm/sec LV V1 max: PA max P.4 mmHg TR max P.2 cm/sec 18.9 mmHg Left Ventricle The left ventricle is grossly normal size. There is mild concentric left ventricular hypertrophy. Left ventricular systolic function is low normal. Doppler measurements suggest pseudonormalized left ventricular relaxation, which is associated with grade II/IV or mild to moderate diastolic dysfunction. Not all wall segments were well visualized. Wall motion cannot be accurately commented on, but no definite regional wall motion abnormalities noted. Right Ventricle The right ventricle is grossly normal size. There is normal right ventricular wall thickness. The right ventricular systolic function is normal. Atria The right atrium is normal in size. The left atrial size is normal. Interarterial septum not well visualized and not well dopplered. Cannot comment on ASD/PFO presence. Mitral Valve The mitral valve is grossly normal. There is no mitral valve stenosis. There is a mild amount of mitral regurgitation. Aortic Valve The aortic valve is grossly normal. There is no aortic valve stenosis. There is a mild amount of aortic regurgitation. Tricuspid Valve The tricuspid valve is not well visualized secondary to technical limitations. There is no tricuspid stenosis. There is a trace or physiologic amount of tricuspid regurgitation. Tricuspid regurgitation jet envelope not well defined to measure RV systolic pressure accurately. Pulmonic Valve The pulmonic valve is not well visualized. Great Vessels The aortic root is not well visualized. The inferior vena cava appeared normal and decreased > 50% with respiration (RAP 5-10 mmHg). Effusions There is no pericardial effusion. Incidental Findings No definite cardiac source of CVA/TIA noted on this particular trans- thoracic study. Consider DORA if clinically indicated. May consider mobile cardiac telemetry monitoring (MCT) for ruling out transient AFIB. : CLEO STEPHENS > Dayton Pacheco
[2017-04-23] MEDS: ATORVASTATIN CALCIUM 40 MG TABLET PO SCH (21:27)
[2017-04-24] MEDS: GABAPENTIN 300 MG CAPSULE PO SCH ×2 (04:25→09:11)
[2017-04-24 04:54] LABS: ABSOLUTE EOSINOPHILS # (AUTO) 0.2 10^3/uL (0.0-0.6); ABSOLUTE LYMPHOCYTES (AUTO) 3.8 10^3/uL (0.5-4.7); ABSOLUTE NEUT (AUTO) 5.5 10^3/uL (1.7-8.2); BASOPHILS % (AUTO) 0.4 % (0-2); EOSINOPHILS % (AUTO) 1.7 % (0-6); HEMATOCRIT 39.7 % (36.0-47.0); HEMOGLOBIN 13.7 g/dL (12.0-15.5); HGB HCT DIFFERENCE 1.4; LYMPHOCYTES % (AUTO) 35.8 % (13-45); MEAN CORPUSCULAR HEMOGLOBIN 33.9 pg (27.0-33.4); MEAN CORPUSCULAR HGB CONC 34.4 g/dL (32.0-36.0); MEAN CORPUSCULAR VOLUME 99 fl (80-97); MONOCYTES % (AUTO) 9.7 % (3-13); RED BLOOD COUNT 4.03 10^6/uL (3.72-5.28); RED CELL DISTRIBUTION WIDTH 13.9 % (11.5-14.0); SEGMENTED NEUTROPHILS % (AUTO) 52.4 % (42-78); WHITE BLOOD COUNT 10.5 10^3/uL (4.0-10.5)
[2017-04-24 05:09] LABS: ALANINE AMINOTRANSFERASE 38 U/L (9-52); ALBUMIN 2.9 g/dL (3.5-5.0); ALKALINE PHOSPHATASE 131 U/L (38-126); ANION GAP 8 (5-19); ASPARTATE AMINO TRANSFERASE 40 U/L (14-36); BILIRUBIN,DIRECT 0.5 mg/dL (0.0-0.4); BILIRUBIN,TOTAL 0.6 mg/dL (0.2-1.3); BLOOD UREA NITROGEN 6 mg/dL (7-20); CALCIUM 8.3 mg/dL (8.4-10.2); CARBON DIOXIDE 21 mmol/L (22-30); CHLORIDE 113 mmol/L (98-107); CREATININE RESULT 0.64 mg/dL (0.52-1.25); GLUCOSE 134 mg/dL (75-110); POTASSIUM 3.8 mmol/L (3.6-5.0); TOTAL PROTEIN 6.8 g/dL (6.3-8.2)
[2017-04-24] MEDS: LANSOPRAZOLE 30 MG TAB.RAP.DR PO SCH (06:01)
[2017-04-24] MEDS: ENOXAPARIN SODIUM INJ 40 MG/0.4 ML DISP.SYRIN SUBCUT SCH (09:06)
[2017-04-24] MEDS: HYDROMORPHONE HCL 2 MG TABLET PO SCH (09:07)
[2017-04-24] MEDS: LOSARTAN POTASSIUM 50 MG TABLET PO SCH (09:07)
[2017-04-24] MEDS: ASPIRIN 325 MG TABLET PO SCH (09:07)
[2017-04-24] MEDS: LORATADINE 10 MG TABLET PO SCH (09:08)
[2017-04-24] MEDS: POTASSIUM CHLORIDE 10 MEQ TABLET.SA PO SCH (09:08)
[2017-04-24] MEDS: NICOTINE 21 MG/24 HR PATCH.TD24 TD SCH (09:08)
--- NOTE | 2017-04-24 13:05 | PDOC DISCHARGE SUMMARY ---
General - Admit/Disc Date/PCP Admission Date/Primary Care Provider: 04/22/17 15:39 CLEO STEPHENS Discharge Date: 04/24/17 - Discharge Diagnosis (1) Acute ischemic stroke Is this a current diagnosis for this admission?: Yes (2) Hypokalemia Is this a current diagnosis for this admission?: Yes (3) Hypertension Is this a current diagnosis for this admission?: Yes (4) Hyperlipidemia Is this a current diagnosis for this admission?: Yes (5) PAD (peripheral artery disease) Is this a current diagnosis for this admission?: Yes (6) Reflux esophagitis Is this a current diagnosis for this admission?: Yes (7) Lumbago Is this a current diagnosis for this admission?: Yes (8) Rhinitis, allergic Is this a current diagnosis for this admission?: Yes (9) Vitamin D deficiency Is this a current diagnosis for this admission?: Yes (10) Smoker Is this a current diagnosis for this admission?: Yes (11) DVT prophylaxis Is this a current diagnosis for this admission?: Yes - Additional Information Resuscitation Status: Full Code Home Medications: Aspirin [Ecotrin 81 mg EC Tablet] 81 mg PO DAILY 04/22/17 Ergocalciferol (Vitamin D2) [Drisdol 50,000 unit (1.25MG) Capsule] 1 cap PO STILL@ 1000 PRN 04/22/17 Gabapentin [Neurontin] 600 mg PO Q8 04/22/17 Hydromorphone HCl [Dilaudid] 4 mg PO 5XDP PRN 04/22/17 Nadolol [Corgard] 20 mg PO DAILY 04/22/17 Pantoprazole Sodium [Protonix] 40 mg PO DAILY 04/22/17 Atorvastatin Calcium [Lipitor 40 mg Tablet] 40 mg PO QHS #0 tablet 04/24/17 Losartan/Hydrochlorothiazide [Hyzaar 50-12.5 Tablet] 1 each PO DAILY #30 tablet 04/24/17 Potassium Chloride [Klor-Con 10 Meq Tablet.sa] 10 meq PO DAILY #30 tablet.sa 07/31 History of Present Illness History of Present Illness: TOM COWAN is a 61 year old female with hx of HTN/Hyperlipidemia/PAD/CVD s.p TIA/GERD/Chronic back pain/Rhinitis/Vitamin D def/Obesity/Hep. s.p treatment /Chronic smoker who was in he baseline until 3 days ago when she noticed left sided weakness, slurring of speech that was progressively getting worse and on the day of presentation, she called her PCP's office and she was directed to go to ER for evaluation for stroke. Hospital Course Hospital Course: 61 year old woman who was admitted for CVD s.p TIA; Acute CVA was ruled out. She was admitted at Telemetry floor.She had replacement of her Potassium since her potassium on admission was 2.6 and is now 3.8 on discharge. She had CT head and MRI head- both normal; had ECHO- normal; Had carotid doppler US- report is pending.She had PT/OT and speech therapy.She is stable and back to her baseline. She will discharged home today to follow up with PCP next week. Physical Exam Vital Signs: Temp Pulse Resp BP Pulse Ox 97.9 F 69 19 112/61 100 04/24/17 10:53 04/24/17 12:00 04/24/17 12:00 04/24/17 12:00 04/24/17 12:00 Intake & Output 04/23/17 04/24/17 04/25/17 06:59 06:59 06:59 Intake Total 422 1338 478 Balance 422 1338 478 Weight 56.9 kg 57.6 kg General appearance: PRESENT: no acute distress, cooperative, well-developed, well-nourished Head exam: PRESENT: atraumatic, normocephalic Eye exam: PRESENT: EOMI Ear exam: PRESENT: TM's normal bilaterally Mouth exam: PRESENT: neck supple, tongue midline Respiratory exam: PRESENT: clear to auscultation duglas, symmetrical Cardiovascular exam: PRESENT: +S1, +S2 Pulses: PRESENT: +2 pedal pulses bilateral GI/Abdominal exam: PRESENT: normal bowel sounds, soft Rectal exam: PRESENT: deferred Extremities exam: PRESENT: full ROM Neurological exam: PRESENT: alert, awake, oriented to person, oriented to place , oriented to time, CN II-XII grossly intact Psychiatric exam: PRESENT: normal mood Results Laboratory Results: 04/24/17 04:32 04/24/17 04:32 04/24/17 04/24/17 04:32 04:32 WBC 10.5 RBC 4.03 Hgb 13.7 Hct 39.7 MCV 99 H MCH 33.9 H MCHC 34.4 RDW 13.9 Plt Count 157 Seg Neutrophils % 52.4 Lymphocytes % 35.8 Monocytes % 9.7 Eosinophils % 1.7 Basophils % 0.4 Absolute Neutrophils 5.5 Absolute Lymphocytes 3.8 Absolute Monocytes 1.0 Absolute Eosinophils 0.2 Absolute Basophils 0.0 Sodium 142.0 Potassium 3.8 Chloride 113 H Carbon Dioxide 21 L Anion Gap 8 BUN 6 L Creatinine 0.64 Est GFR ( Amer) > 60 Est GFR (Non-Af Amer) > 60 Glucose 134 H Calcium 8.3 L Total Bilirubin 0.6 AST 40 H ALT 38 Alkaline Phosphatase 131 H Total Protein 6.8 Albumin 2.9 L 04/23/17 04/23/17 04:17 04:17 Creatine Kinase 244 H CK-MB (CK-2) 0.45 Troponin I < 0.012 Impressions: Head MRI 04/22/17 00:00 IMPRESSION: NORMAL MRI OF THE BRAIN WITHOUT INTRAVENOUS GADOLINIUM CONTRAST. EVIDENCE OF ACUTE STROKE: NO. Head CT 04/22/17 11:42 IMPRESSION: NORMAL BRAIN CT WITHOUT CONTRAST.
[2017-04-24 13:30] VITALS: BP 118/59
--- NOTE | 2017-04-24 14:05 | CAROTID DOPPLER PRO FEE REPORT ---
CAROTID DUPLEX DOPPLER REPORT PATIENT NAME: TOM COWAN ROOM#: [id number] DATE OF STUDY: 04/23/2017 DATE OF : 1955 REFERRING MD: Placido Stovall M.D. ORDER NO: [id number] TECHNOLOGIST: Esequiel Escoto INDICATION: CVA STUDY: The color carotid duplex scan was performed with real time images and real time Doppler velocity measurements. Real time images indicated mild bilateral plaque formation at the bulbs bilaterally. Doppler velocity measurements were as follows: MEASUREMENT: RIGHT LEFT CCA PSV (prox/mid) 90 cm/sec 87 cm/sec CCA PSV (distal) 51 cm/sec 46 cm/sec CCA EDV (prox/mid) 18 cm/sec 25 cm/sec CCA EDV (distal) 17 cm/sec 16 cm/sec ICA PSV (proximal) 41 cm/sec 40 cm/sec ICA PSV (distal) 79 cm/sec 71 cm/sec ICA EDV (proximal) 15 cm/sec 18 cm/sec ICA EDV (distal) 38 cm/sec 30 cm/sec ECA 55 cm/sec 63 cm/sec ICA/CCA RATIO: 1.5 on the right and 1.5 on the left. Vertebrals are patent. Flow is cephalad. FINAL IMPRESSION: MILD BILATERAL PLAQUE FORMATION, LESS THAN 50% STENOTIC FLOW. INTERPRETING PHYSICIAN: PLACIDO STOVALL M.D. /: CELESTE TT: 1401 ID: [id number] /: [id number] TD: 1435 JOB: [id number] cc:Jed HICKEY M.D. >
== END 2017-04-24 14:00 | disposition home or self-care (01) | DRG 641 ==
LOC: ER 11:05 → EH 13:55 → UNDOADMIN 13:55 → EH 15:39 → 3N 20:41
PROVIDERS: ADMIT Internal Medicine; ATTEND Internal Medicine
DX: E87.6 Hypokalemia (principal); G81.94 Hemiplegia, unspecified affecting left nondominant side; N30.00 Acute cystitis without hematuria; R47.81 Slurred speech; I10 Essential (primary) hypertension; E78.5 Hyperlipidemia, unspecified; I73.9 Peripheral vascular disease, unspecified; K21.0 Gastro-esophageal reflux disease with esophagitis; E55.9 Vitamin D deficiency, unspecified; J30.9 Allergic rhinitis, unspecified; F17.210 Nicotine dependence, cigarettes, uncomplicated; G89.29 Other chronic pain; M54.9 Dorsalgia, unspecified; M19.90 Unspecified osteoarthritis, unspecified site; E66.9 Obesity, unspecified; Z68.28 Body mass index [BMI] 28.0-28.9, adult; Z79.899 Other long term (current) drug therapy; Z90.49 Acquired absence of other specified parts of digestive tract
CPT/HCPCS: 36415; 70450; 70551; 80053; 80061; 81001; 82550; 82553; 83735; 84443; 84484; 85025; 93005; 93010; 93306; 93880; 99285; G8987-GO; G8988-GO; G8989-GO; G8999-GN; G9158-GN; G9186-GN; J1650; J3480

== ENCOUNTER 2017-05-01 11:37 | Emergency (ER) | payer MEDICAID ==
--- NOTE | 2017-05-01 12:00 | RADIOLOGY REPORT (SQ) ---
EXAM DESCRIPTION: CT HEAD WITHOUT COMPLETED DATE/TIME: 05/01/2017 11:47 am REASON FOR STUDY: altered, recent cva COMPARISON: CT BRAIN 05/20/2016, 04/22/2017 MRI brain 04/22/2017 TECHNIQUE: Axial images acquired through the brain without intravenous contrast. Images reviewed wi th bone, brain and subdural windows. Images stored on PACS. All CT scanners at this facility use dose modulation, iterative reconstruction, and/or weight based d osing when appropriate to reduce radiation dose to as low as reasonably achievable (ALARA). [facility]: Dose Right [facility]: CareDose [facility]: Dose Right [facility]: Teradose 4D [facility]: 10seconds Software RADIATION DOSE: 64.6 MGy. LIMITATIONS: None. FINDINGS: VENTRICLES: Normal size and contour. CEREBRUM: No masses. No hemorrhage. No midline shift. Normal torres/white matter differentiation. N o evidence for acute infarction. CEREBELLUM: No masses. No hemorrhage. No alteration of density. No evidence for acute infarction. EXTRAAXIAL SPACES: No fluid collections. No masses. ORBITS AND GLOBE: No intra- or extraconal masses. Normal contour of globe without masses. CALVARIUM: No fracture. PARANASAL SINUSES: No fluid or mucosal thickening. SOFT TISSUES: No mass or hematoma. OTHER: No other significant finding. IMPRESSION: NORMAL BRAIN CT WITHOUT CONTRAST. TECHNICAL DOCUMENTATION: JOB ID: [id number] Quality ID # [id number]: Final reports with documentation of one or more dose reduction techniques (e.g., Au tomated exposure control, adjustment of the mA and/or kV according to patient size, use of iterative reconstruction technique) 2010 [employer]- All Rights Reserved
--- NOTE | 2017-05-01 12:07 | ER Document Report ---
ED General - General Stated Complaint: POSSIBLE STROKE Time Seen by Provider: 05/01/17 11:42 Mode of Arrival: Medic Information source: Patient, Emergency Med Personnel Notes: 61-year-old female presents from home with concerns of altered mental status. Patient was normal last night noted to be found confused this morning. Patient did take her pain medications prior to this confusion TRAVEL OUTSIDE OF THE [place] IN LAST 30 DAYS: No - HPI Onset: Just prior to arrival Onset/Duration: Sudden Quality of pain: No pain Severity: Mild Pain Level: Denies Associated symptoms: Weakness Exacerbated by: Denies Relieved by: Denies Similar symptoms previously: Yes Recently seen / treated by doctor: Yes - Related Data Allergies/Adverse Reactions: No Known Allergies Allergy (Verified 04/22/17 11:11) Past Medical History - Social History Smoking Status: Current Every Day Smoker Cigarette use (# per day): Yes Chew tobacco use (# tins/day): No Smoking Education Provided: No Family History: Reviewed & Not Pertinent - Past Medical History Cardiac Medical History: Reports: Hx Hypertension Denies: Hx Hypercholesterolemia Endocrine Medical History: Denies: Hx Diabetes Mellitus Type 1, Hx Diabetes Mellitus Type 2 Renal/ Medical History: Denies: Hx Peritoneal Dialysis Musculoskeltal Medical History: Reports Hx Arthritis Psychiatric Medical History: Reports: Hx Depression Past Surgical History: Reports: Hx Cholecystectomy - Immunizations Hx Diphtheria, Pertussis, Tetanus Vaccination: Yes Review of Systems - Review of Systems Notes: REVIEW OF SYSTEMS: CONSTITUTIONAL : Denies fever, chills, or sweats. Denies recent illness. EENT: Denies eye, ear, throat, or mouth pain or symptoms. Denies nasal or sinus congestion or discharge. Denies throat, tongue, or mouth swelling or difficulty swallowing. CARDIOVASCULAR: Denies chest pain. Denies palpitations or racing or irregular heart beat. Denies ankle edema. RESPIRATORY: Denies cough, cold, or chest congestion. Denies shortness of breath, difficulty breathing, or wheezing. GASTROINTESTINAL: Denies abdominal pain or distention. Denies nausea, vomiting , or diarrhea. Denies blood in vomitus, stools, or per rectum. Denies black, tarry stools. Denies constipation. GENITOURINARY: Denies difficulty urinating, painful urination, burning, frequency, blood in urine, or discharge. FEMALE GENITOURINARY: Denies vaginal bleeding, heavy or abnormal periods, irregular periods. Denies vaginal discharge or odor. MUSCULOSKELETAL: Denies back or neck pain or stiffness. Denies joint pain or swelling. SKIN: Denies rash, lesions or sores. HEMATOLOGIC : Denies easy bruising or bleeding. LYMPHATIC: Denies swollen, enlarged glands. NEUROLOGICAL: Admits weakness PSYCHIATRIC: Denies anxiety or stress. Denies depression, suicidal ideation, or homicidal ideation. ALL OTHER SYSTEMS REVIEWED AND NEGATIVE. PHYSICAL EXAMINATION: GENERAL: Frail HEAD: Atraumatic, normocephalic. EYES: Pupils equal round and reactive to light, extraocular movements intact, conjunctiva are normal. ENT: Nares patent, oropharynx clear without exudates. Moist mucous membranes. NECK: Normal range of motion, supple without lymphadenopathy LUNGS: Breath sounds clear to auscultation bilaterally and equal. No wheezes rales or rhonchi. HEART: Regular rate and rhythm without murmurs ABDOMEN: Soft, nontender, nondistended abdomen. No guarding, no rebound. No masses appreciated. Female : deferred Musculoskeletal: Normal range of motion, no pitting or edema. No cyanosis. NEUROLOGICAL: Patient is very strong in her extremities, is not confused at all , has no deficits PSYCH: Normal mood, normal affect. SKIN: Warm, Dry, normal turgor, no rashes or lesions noted. Dictation was performed using [employer] voice recognition software Physical Exam - Vital signs Vitals: Resp Pulse Ox 15 95 05/01/17 11:43 05/01/17 11:43 Course - Re-evaluation Re-evalutation: 05/01/17 14:09 dr dobbs paged 05/01/17 14:[address] Dobbs the findings of a white count of 14.6, elevated CK and CK-MB, I explained to him these findings are different from his previous findings. He says there is nothing wrong with the patient and to send the patient home. 05/01/17 15:06 Repeat CPK CK have been ordered. Patient otherwise appears well at this time states she feels better wishes to go home. - Vital Signs Vital signs: Temp Pulse Resp BP Pulse Ox 102 H 10 L 115/89 H 93 05/01/17 12:12 05/01/17 14:22 05/01/17 14:22 05/01/17 14:22 - Laboratory Result Diagrams: 05/01/17 11:15 05/01/17 11:15 Laboratory results interpreted by me: 05/01/17 05/01/17 05/01/17 11:15 11:15 11:15 WBC 14.6 H RBC 5.79 H Hgb 19.0 H Hct 57.6 H MCV 100 H RDW 14.1 H Absolute Neutrophils 8.4 H Absolute Lymphocytes 4.9 H Glucose 155 H POC Glucose Calcium 10.6 H Total Bilirubin 1.5 H Direct Bilirubin 0.8 H AST 63 H Alkaline Phosphatase 144 H Creatine Kinase 298 H CK-MB (CK-2) 23.40 H Total Protein 10.0 H Urine Protein Urine Ketones Urine Urobilinogen Ur Leukocyte Esterase Urine Ascorbic Acid 05/01/17 05/01/17 05/01/17 11:43 13:41 15:10 WBC RBC Hgb Hct MCV RDW Absolute Neutrophils Absolute Lymphocytes Glucose POC Glucose 137 H Calcium Total Bilirubin Direct Bilirubin AST Alkaline Phosphatase Creatine Kinase 210 H CK-MB (CK-2) Total Protein Urine Protein 30 H Urine Ketones TRACE H Urine Urobilinogen 4.0 H Ur Leukocyte Esterase MODERATE H Urine Ascorbic Acid 40 H Discharge - Discharge Referrals: CLEO DOBBS MD [Primary Care Provider] - Follow up as needed
[2017-05-01 12:17] LABS: ABSOLUTE BASOPHILS # (AUTO) 0.1 10^3/uL (0.0-0.2); ABSOLUTE EOSINOPHILS # (AUTO) 0.2 10^3/uL (0.0-0.6); ABSOLUTE LYMPHOCYTES (AUTO) 4.9 10^3/uL (0.5-4.7); ABSOLUTE NEUT (AUTO) 8.4 10^3/uL (1.7-8.2); BASOPHILS % (AUTO) 0.9 % (0-2); HEMATOCRIT 57.6 % (36.0-47.0); HGB HCT DIFFERENCE -0.6; LYMPHOCYTES % (AUTO) 33.7 % (13-45); MEAN CORPUSCULAR HEMOGLOBIN 32.9 pg (27.0-33.4); MEAN CORPUSCULAR HGB CONC 33.1 g/dL (32.0-36.0); MEAN CORPUSCULAR VOLUME 100 fl (80-97); MONOCYTES % (AUTO) 7.2 % (3-13); RED BLOOD COUNT 5.79 10^6/uL (3.72-5.28); RED CELL DISTRIBUTION WIDTH 14.1 % (11.5-14.0); SEGMENTED NEUTROPHILS % (AUTO) 57.2 % (42-78); WHITE BLOOD COUNT 14.6 10^3/uL (4.0-10.5)
[2017-05-01 12:22] LABS: ALANINE AMINOTRANSFERASE 38 U/L (9-52); ALBUMIN 4.2 g/dL (3.5-5.0); ALKALINE PHOSPHATASE 144 U/L (38-126); ANION GAP 11 (5-19); ASPARTATE AMINO TRANSFERASE 63 U/L (14-36); BILIRUBIN,DIRECT 0.8 mg/dL (0.0-0.4); BILIRUBIN,TOTAL 1.5 mg/dL (0.2-1.3); BLOOD UREA NITROGEN 20 mg/dL (7-20); CALCIUM 10.6 mg/dL (8.4-10.2); CARBON DIOXIDE 27 mmol/L (22-30); CHLORIDE 102 mmol/L (98-107); CREATINE KINASE 298 U/L (30-135); CREATININE RESULT 0.79 mg/dL (0.52-1.25); GLUCOSE 155 mg/dL (75-110); SODIUM 139.8 mmol/L (137-145)
--- NOTE | 2017-05-01 12:29 | RADIOLOGY REPORT (SQ) ---
EXAM DESCRIPTION: CHEST SINGLE VIEW COMPLETED DATE/TIME: 05/01/2017 12:09 pm REASON FOR STUDY: altered, recent cva COMPARISON: Chest film 01/06/2017, 05/13/2016, 03/27/2010 EXAM PARAMETERS: NUMBER OF VIEWS: One view. TECHNIQUE: Single frontal radiographic view of the chest acquired. RADIATION DOSE: NA LIMITATIONS: None. FINDINGS: LUNGS AND PLEURA: No opacities, masses or pneumothorax. No pleural effusion. MEDIASTINUM AND HILAR STRUCTURES: No masses. Contour normal. HEART AND VASCULAR STRUCTURES: Heart normal in size. Normal vasculature. BONES: No acute findings. HARDWARE: None in the chest. OTHER: Enlarged left lobe thyroid displacing the upper trachea toward the right. This is more promin ent than on previous studies. IMPRESSION: NO ACUTE RADIOGRAPHIC FINDING IN THE CHEST. ENLARGED LEFT LOBE THYROID DISPLACING THE TRACHEA TOWARDS THE RIGHT AT THE LEVEL OF THE THORACIC INLE T TECHNICAL DOCUMENTATION: JOB ID: [id number]
[2017-05-01 12:34] LABS: TROPONIN I < 0.012 ng/mL
[2017-05-01 13:15] LABS: PROTHROMBIN TIME 15.4 SEC (11.4-15.4)
[2017-05-01 13:16] LABS: PARTIAL THROMBOPLASTIN TIME 33.5 SEC (23.5-35.8)
[2017-05-01 14:05] LABS: APPEARANCE,URINE CLOUDY; BILIRUBIN,URINE NEGATIVE (NEGATIVE); GLUCOSE, URINE NEGATIVE (NEGATIVE); KETONES,URINE TRACE mg/dL (NEGATIVE); LEUKOCYTE ESTERASE,URINE MODERATE (NEGATIVE); NITRITE,URINE NEGATIVE (NEGATIVE); PROTEIN,URINE 30 mg/dL (NEGATIVE); URINE SPECIFIC GRAVITY 1.017
[2017-05-01] MEDS ORDERED: METOCLOPRAMIDE HCL INJ/PF 10 MG/2 ML SDV IV ONE (15:06)
[2017-05-01 15:51] LABS: TROPONIN I < 0.012 ng/mL
[2017-05-01 17:02] VITALS: BP 104/77
--- NOTE | 2017-05-01 18:44 | EKG REPORT ---
SEVERITY:- BORDERLINE ECG - SINUS RHYTHM BORDERLINE PROLONGED QT INTERVAL : Confirmed by: Paul Esquivel MD 01-May-2017 18:43:16
== END 2017-05-01 16:45 | disposition home or self-care (01) ==
LOC: ER 11:37
DX: R41.82 Altered mental status, unspecified (principal); R53.1 Weakness; R11.0 Nausea
CPT/HCPCS: 93005; 99285; 51701; 96374; 36415; 82553; 82962; 82550; 85025; 85610; 85730; 80053; 81001; 84484; 71010; 70450; 93010; J2765

== ENCOUNTER 2017-05-06 21:11 | Emergency (ER) | payer MEDICAID ==
--- NOTE | 2017-05-06 21:47 | RADIOLOGY REPORT (SQ) ---
EXAM DESCRIPTION: CT HEAD WITHOUT COMPLETED DATE/TIME: 05/06/2017 9:36 pm REASON FOR STUDY: stroke SXs COMPARISON: 05/01/2017 TECHNIQUE: Axial images acquired through the brain without intravenous contrast. Images reviewed wi th bone, brain and subdural windows. Images stored on PACS. All CT scanners at this facility use dose modulation, iterative reconstruction, and/or weight based d osing when appropriate to reduce radiation dose to as low as reasonably achievable (ALARA). [facility]: Dose Right [facility]: CareDose [facility]: Dose Right [facility]: Teradose 4D [facility]: [employer] RADIATION DOSE: Up-to-date CT equipment and radiation dose reduction techniques were employed. CTDIv ol: 67.0 mGy. DLP: 1316 mGy-cm. mGy. LIMITATIONS: None. FINDINGS: VENTRICLES: Normal size and contour. CEREBRUM: No masses. No hemorrhage. No midline shift. Normal torres/white matter differentiation. N o evidence for acute infarction. CEREBELLUM: No masses. No hemorrhage. No alteration of density. No evidence for acute infarction. EXTRAAXIAL SPACES: No fluid collections. No masses. ORBITS AND GLOBE: No intra- or extraconal masses. Normal contour of globe without masses. CALVARIUM: No fracture. PARANASAL SINUSES: No fluid or mucosal thickening. SOFT TISSUES: No mass or hematoma. OTHER: No other significant finding. IMPRESSION: No acute intracranial findings. TECHNICAL DOCUMENTATION: JOB ID: [id number] Quality ID # [id number]: Final reports with documentation of one or more dose reduction techniques (e.g., Au tomated exposure control, adjustment of the mA and/or kV according to patient size, use of iterative reconstruction technique) 2010 [employer]- All Rights Reserved
--- NOTE | 2017-05-06 21:56 | ER Document Report ---
ED General - General Chief Complaint: S/S of Possible Stroke Stated Complaint: POSSIBLE STROKE Time Seen by Provider: 05/06/17 21:33 TRAVEL OUTSIDE OF THE [place] IN LAST 30 DAYS: No - HPI Notes: 61-year-old female presents after becoming increasingly [facility]nolent at [facility] asleep and having jerking episodes that are brief that cause her to awaken then she quickly falls back asleep. They were concerned she could have a stroke because of this. She has been seen for excessive somnolence prior. She is currently on Dilaudid 4 mg up to 5 times a day for chronic back pain. She has been having extreme fatigue and somnolence for quite some time now. She is not having any other symptoms associated with it such as chest pain focal weakness numbness or tingling. She has no other associated symptoms. She has been dependent on this for quite some time and at points in time if she runs out develops withdrawal symptoms. She has not had any seizure activity. She presents to the room as a stroke alert. - Related Data Allergies/Adverse Reactions: No Known Allergies Allergy (Verified 05/06/17 21:22) Past Medical History - Social History Smoking Status: Current Every Day Smoker Family History: Reviewed & Not Pertinent Patient has suicidal ideation: No Patient has homicidal ideation: No - Past Medical History Cardiac Medical History: Reports: Hx Hypertension Denies: Hx Hypercholesterolemia Endocrine Medical History: Denies: Hx Diabetes Mellitus Type 1, Hx Diabetes Mellitus Type 2 Renal/ Medical History: Denies: Hx Peritoneal Dialysis Musculoskeltal Medical History: Reports Hx Arthritis Psychiatric Medical History: Reports: Hx Depression Past Surgical History: Reports: Hx Cholecystectomy - Immunizations Hx Diphtheria, Pertussis, Tetanus Vaccination: Yes Review of Systems - Review of Systems -: Yes All other systems reviewed and negative Physical Exam - Vital signs Vitals: Pulse Ox 94 05/06/17 21:28 Notes: Reviewed, see nurse's notes - Notes Notes: GENERAL: VS as per nursing doc. Well-appearing, extremely somnolent but in no acute distress. HEAD: Atraumatic, normocephalic. EYES: Pupils are 1 mm and sluggish, extraocular movements intact, sclera anicteric, no conjunctival injection or discharge. ENT: Nares patent, oropharynx clear without exudates, moist mucous membranes. Airway maintained NECK: Normal range of motion, supple without lymphadenopathy. LUNGS: Breath sounds coarse bilaterally. HEART: Regular rate and rhythm without murmurs. ABDOMEN: Soft, non-tender BACK: No CVA tenderness. EXTREMITIES: Normal range of motion, no calf tenderness, no edema. NEUROLOGICAL: Cranial nerves intact. Slurred speech and appears overmedicated. Normal sensory and motor exams though slow to process. No focal cerebellar abnormalities. PSYCH: Flat affect, falling asleep during history and physical then awakens to verbal stimuli if repetitive or tactile stimuli. SKIN: Warm, dry. Course - Re-evaluation Re-evalutation: 05/07/17 00:35 Patient was observed in the emergency department. Her sedation seems to have worn off and she is at baseline now. Again discussed with her oversedation and risk of strong opiates in the use of chronic pain management. She reports they did decrease her to 4 mg at some point but the pain was not tolerable. She understands she will need to discuss with her pain management clinic her recurring issues with oversedation and further management. - Vital Signs Vital signs: Temp Pulse Resp BP Pulse Ox 13 104/79 94 05/06/17 23:01 05/06/17 23:01 05/06/17 23:01 - Laboratory Result Diagrams: 05/06/17 21:58 05/06/17 22:48 Laboratory results interpreted by me: 05/06/17 05/06/17 05/06/17 21:58 22:48 22:48 WBC 13.8 H MCV 100 H MCH 33.5 H Plt Count 125 L Absolute Monocytes 1.6 H PT 15.6 H Sodium 135.4 L Potassium 3.1 L Chloride 95 L Carbon Dioxide 32 H Glucose 124 H Direct Bilirubin 0.6 H Alkaline Phosphatase 190 H Creatine Kinase 172 H Albumin 3.3 L - EKG Interpretation by Co EKG shows normal: Sinus rhythm - Normal sinus rhythm, rate 82, no evidence of ischemia. Some mild artifact. EKG normal otherwise Discharge - Discharge Clinical Impression: Oversedation, Excessive somnolence Condition: Good Disposition: HOME, SELF-CARE Additional Instructions: Please discussed the recurrent oversedation with your pain management clinic and ensure you understand the risk of permanent disability or as a result of this. Return for emergency or concern. Referrals: CLEO STEPHENS MD [Primary Care Provider] - Follow up in 3-5 days
--- NOTE | 2017-05-06 21:58 | RADIOLOGY REPORT (SQ) ---
EXAM DESCRIPTION: CHEST SINGLE VIEW COMPLETED DATE/TIME: 05/06/2017 9:34 pm REASON FOR STUDY: stroke SXs COMPARISON: 05/13/2016 NUMBER OF VIEWS: One view. TECHNIQUE: Single frontal radiographic view of the chest acquired. LIMITATIONS: None. FINDINGS: LUNGS AND PLEURA: Low lung volumes. No consolidation, masses or pneumothorax. No pleural effusion. MEDIASTINUM AND HILAR STRUCTURES: Stable for technique. HEART AND VASCULAR STRUCTURES: Stable for technique. BONES: No acute findings. HARDWARE: None in the chest. OTHER: No other significant finding. IMPRESSION: LOW LUNG VOLUMES. No consolidation. TECHNICAL DOCUMENTATION: JOB ID: [id number] [employer]- All Rights Reserved
[2017-05-06 22:18] LABS: ABSOLUTE BASOPHILS # (AUTO) 0.1 10^3/uL (0.0-0.2); ABSOLUTE EOSINOPHILS # (AUTO) 0.1 10^3/uL (0.0-0.6); ABSOLUTE LYMPHOCYTES (AUTO) 3.8 10^3/uL (0.5-4.7); ABSOLUTE MONOCYTES (AUTO) 1.6 10^3/uL (0.1-1.4); ABSOLUTE NEUT (AUTO) 8.2 10^3/uL (1.7-8.2); BASOPHILS % (AUTO) 0.8 % (0-2); EOSINOPHILS % (AUTO) 0.7 % (0-6); HEMATOCRIT 44.4 % (36.0-47.0); HEMOGLOBIN 14.9 g/dL (12.0-15.5); HGB HCT DIFFERENCE 0.3; LYMPHOCYTES % (AUTO) 27.6 % (13-45); MEAN CORPUSCULAR HEMOGLOBIN 33.5 pg (27.0-33.4); MEAN CORPUSCULAR HGB CONC 33.5 g/dL (32.0-36.0); MEAN CORPUSCULAR VOLUME 100 fl (80-97); MONOCYTES % (AUTO) 11.9 % (3-13); RED BLOOD COUNT 4.44 10^6/uL (3.72-5.28); RED CELL DISTRIBUTION WIDTH 13.8 % (11.5-14.0); WHITE BLOOD COUNT 13.8 10^3/uL (4.0-10.5)
[2017-05-06 23:03] LABS: PARTIAL THROMBOPLASTIN TIME 34.7 SEC (23.5-35.8); PROTHROMBIN TIME 15.6 SEC (11.4-15.4)
[2017-05-06 23:08] LABS: ALANINE AMINOTRANSFERASE 28 U/L (9-52); ALBUMIN 3.3 g/dL (3.5-5.0); ALKALINE PHOSPHATASE 190 U/L (38-126); ANION GAP 8 (5-19); ASPARTATE AMINO TRANSFERASE 34 U/L (14-36); BILIRUBIN,DIRECT 0.6 mg/dL (0.0-0.4); BILIRUBIN,TOTAL 0.8 mg/dL (0.2-1.3); BLOOD UREA NITROGEN 9 mg/dL (7-20); CARBON DIOXIDE 32 mmol/L (22-30); CHLORIDE 95 mmol/L (98-107); CREATINE KINASE 172 U/L (30-135); CREATININE RESULT 0.73 mg/dL (0.52-1.25); GLUCOSE 124 mg/dL (75-110); POTASSIUM 3.1 mmol/L (3.6-5.0); SODIUM 135.4 mmol/L (137-145); TOTAL PROTEIN 7.2 g/dL (6.3-8.2)
[2017-05-06 23:11] LABS: ALCOHOL < 10 mg/dL (NONE DETECTED)
[2017-05-06 23:26] LABS: CREATINE KINASE MB 0.88 ng/mL (<4.55)
[2017-05-06 23:34] LABS: TROPONIN I < 0.012 ng/mL
[2017-05-07 01:02] VITALS: BP 126/61
--- NOTE | 2017-05-07 21:30 | EKG REPORT ---
SEVERITY:- NORMAL ECG - SINUS RHYTHM : Confirmed by: Dayton Pacheco 07-May-2017 21:29:15
== END 2017-05-07 00:55 | disposition home or self-care (01) ==
LOC: ER 21:11
DX: F11.288 Opioid dependence with other opioid-induced disorder (principal); R40.0 Somnolence; T40.2X5A Adverse effect of other opioids, initial encounter; Y92.22 Religious institution as the place of occurrence of the external cause; M54.9 Dorsalgia, unspecified; G89.29 Other chronic pain; I10 Essential (primary) hypertension; F17.200 Nicotine dependence, unspecified, uncomplicated
CPT/HCPCS: 36415; 70450; 71010; 80053; 80307; 82550; 82553; 84484; 85025; 85610; 85730; 93005; 93010; 99284

== ENCOUNTER → 2017-07-28 | Outpatient (CLI) | payer MEDICAID ==
--- NOTE | 2017-07-28 12:46 | RADIOLOGY REPORT (SQ) ---
EXAM DESCRIPTION: FOOT RIGHT COMPLETE COMPLETED DATE/TIME: 07/28/2017 9:59 am REASON FOR STUDY: ANKYLOSIS, RIGHT FOOT M24.674 ANKYLOSIS, RIGHT FOOT COMPARISON: None. NUMBER OF VIEWS: Three views. TECHNIQUE: AP, lateral and oblique radiographic images acquired of the right foot. LIMITATIONS: None. FINDINGS: MINERALIZATION: Normal. BONES: No acute fracture or dislocation. No worrisome bone lesions. JOINTS: There is significant narrowing of the 1st metatarsal-phalangeal joint with bony overgrowth at the joint and the presence of some small subchondral cysts. SOFT TISSUES: No soft tissue swelling. No foreign body. OTHER: No other significant finding. IMPRESSION: Degenerative joint disease as described. TECHNICAL DOCUMENTATION: JOB ID: [id number] [employer]- All Rights Reserved
== END ==
LOC: OD 09:31
PROVIDERS: ATTEND Internal Medicine
DX: M24.674 Ankylosis, right foot (principal); M19.071 Primary osteoarthritis, right ankle and foot

== ENCOUNTER 2017-09-28 15:01 | Emergency (ER) | payer MEDICAID ==
--- NOTE | 2017-09-28 17:03 | ER Document Report ---
ED Medical Screen (RME) - General Chief Complaint: Syncope Stated Complaint: FEET SWELLING Time Seen by Provider: 09/28/17 16:58 Notes: Patient states she fell about 1 week ago. Since that time she has had severe back pain. She states she does have chronic back pain and takes morphine for this. She states it has been worse. She also states that she has been having some trouble thinking and speaking since the fall. TRAVEL OUTSIDE OF THE [place] IN LAST 30 DAYS: No - Related Data Allergies/Adverse Reactions: No Known Allergies Allergy (Verified 05/06/17 21:22) Past Medical History - Past Medical History Cardiac Medical History: Reports: Hx Hypertension Denies: Hx Hypercholesterolemia Endocrine Medical History: Denies: Hx Diabetes Mellitus Type 1, Hx Diabetes Mellitus Type 2 Renal/ Medical History: Denies: Hx Peritoneal Dialysis Musculoskeltal Medical History: Reports Hx Arthritis Psychiatric Medical History: Reports: Hx Depression Past Surgical History: Reports: Hx Cholecystectomy - Immunizations Hx Diphtheria, Pertussis, Tetanus Vaccination: Yes Physical Exam - Vital signs Vitals: Temp Pulse Resp BP Pulse Ox 98.5 F 114 H 20 132/89 H 97 09/28/17 15:11 09/28/17 15:11 09/28/17 15:11 09/28/17 15:11 09/28/17 15:11 Course - Vital Signs Vital signs: Temp Pulse Resp BP Pulse Ox 98.5 F 114 H 20 132/89 H 97 09/28/17 15:11 09/28/17 15:11 09/28/17 15:11 09/28/17 15:11 09/28/17 15:11
--- NOTE | 2017-09-28 17:20 | EKG REPORT ---
SEVERITY:- OTHERWISE NORMAL ECG - SINUS TACHYCARDIA : Confirmed by: Dayton Pacheco 28-Sep-2017 17:20:41
[2017-09-28 17:26] LABS: APPEARANCE,URINE CLOUDY; BILIRUBIN,URINE NEGATIVE (NEGATIVE); COLOR,URINE YELLOW; GLUCOSE, URINE NEGATIVE (NEGATIVE); KETONES,URINE NEGATIVE (NEGATIVE); LEUKOCYTE ESTERASE,URINE NEGATIVE (NEGATIVE); NITRITE,URINE NEGATIVE (NEGATIVE); PROTEIN,URINE NEGATIVE (NEGATIVE); URINE SPECIFIC GRAVITY 1.009
[2017-09-28 17:30] LABS: ABSOLUTE BASOPHILS # (AUTO) 0.1 10^3/uL (0.0-0.2); ABSOLUTE EOSINOPHILS # (AUTO) 0.3 10^3/uL (0.0-0.6); ABSOLUTE LYMPHOCYTES (AUTO) 3.6 10^3/uL (0.5-4.7); ABSOLUTE NEUT (AUTO) 4.6 10^3/uL (1.7-8.2); BASOPHILS % (AUTO) 0.6 % (0-2); HEMATOCRIT 39.9 % (36.0-47.0); HEMOGLOBIN 13.6 g/dL (12.0-15.5); LYMPHOCYTES % (AUTO) 37.8 % (13-45); MEAN CORPUSCULAR HEMOGLOBIN 32.8 pg (27.0-33.4); MEAN CORPUSCULAR HGB CONC 34.2 g/dL (32.0-36.0); MEAN CORPUSCULAR VOLUME 96 fl (80-97); MONOCYTES % (AUTO) 10.1 % (3-13); PLATELET COUNT 202 10^3/uL (150-450); RED BLOOD COUNT 4.16 10^6/uL (3.72-5.28); RED CELL DISTRIBUTION WIDTH 13.4 % (11.5-14.0); SEGMENTED NEUTROPHILS % (AUTO) 48.5 % (42-78); TOTAL CELLS COUNTED % (AUTO) 100 %; WHITE BLOOD COUNT 9.4 10^3/uL (4.0-10.5)
--- NOTE | 2017-09-28 17:33 | RADIOLOGY REPORT (SQ) ---
EXAM DESCRIPTION: CT HEAD WITHOUT COMPLETED DATE/TIME: 09/28/2017 5:25 pm REASON FOR STUDY: fall/trouble speaking COMPARISON: 05/06/2017 TECHNIQUE: Axial images acquired through the brain without intravenous contrast. Images reviewed wi th bone, brain and subdural windows. Images stored on PACS. All CT scanners at this facility use dose modulation, iterative reconstruction, and/or weight based d osing when appropriate to reduce radiation dose to as low as reasonably achievable (ALARA). [facility]: Dose Right [facility]: CareDose [facility]: Dose Right [facility]: Teradose 4D [facility]: [employer] RADIATION DOSE: CT Rad equipment meets quality standard of care and radiation dose reduction techniq ues were employed. CTDIvol: 64.6 mGy. DLP: 1163 mGy-cm. mGy. LIMITATIONS: None. FINDINGS: VENTRICLES: Normal size and contour. CEREBRUM: No masses. No hemorrhage. No midline shift. No evidence for acute infarction. Normal gra y/white matter differentiation. No areas of low density in the white matter. CEREBELLUM: No masses. No hemorrhage. No alteration of density. No evidence for acute infarction. EXTRAAXIAL SPACES: No fluid collections. No masses. ORBITS AND GLOBE: No intra- or extraconal masses. Normal contour of globe without masses. CALVARIUM: No fracture. PARANASAL SINUSES: No fluid or mucosal thickening. SOFT TISSUES: No mass or hematoma. OTHER: No other significant finding. IMPRESSION: NO ACUTE INTRACRANIAL PROCESS. NO SIGNIFICANT CHANGE FROM PRIOR STUDY PER EVIDENCE OF ACUTE STROKE: NO. COMMENT: Quality ID # [id number]: Final reports with documentation of one or more dose reduction techniques (e.g., Automated exposure control, adjustment of the mA and/or kV according to patient size, use of iterative reconstruction technique) TECHNICAL DOCUMENTATION: JOB ID: [id number] [employer]- All Rights Reserved
[2017-09-28 17:51] LABS: ALANINE AMINOTRANSFERASE 51 U/L (9-52); ALBUMIN 3.6 g/dL (3.5-5.0); ALKALINE PHOSPHATASE 159 U/L (38-126); ANION GAP 7 (5-19); ASPARTATE AMINO TRANSFERASE 96 U/L (14-36); BILIRUBIN,DIRECT 0.4 mg/dL (0.0-0.4); BILIRUBIN,TOTAL 0.6 mg/dL (0.2-1.3); BLOOD UREA NITROGEN 8 mg/dL (7-20); CALCIUM 9.5 mg/dL (8.4-10.2); CARBON DIOXIDE 33 mmol/L (22-30); CHLORIDE 100 mmol/L (98-107); GLUCOSE 117 mg/dL (75-110); POTASSIUM 3.8 mmol/L (3.6-5.0); SODIUM 139.5 mmol/L (137-145); TOTAL PROTEIN 7.3 g/dL (6.3-8.2)
--- NOTE | 2017-09-28 17:57 | RADIOLOGY REPORT (SQ) ---
EXAM DESCRIPTION: T SPINE AP/LAT COMPLETED DATE/TIME: 09/28/2017 5:46 pm REASON FOR STUDY: fall/pain COMPARISON: 01/10/2016 NUMBER OF VIEWS: Two views. TECHNIQUE: AP and lateral radiographic images acquired of the thoracic spine. LIMITATIONS: None. FINDINGS: MINERALIZATION: Normal. ALIGNMENT: Stable alignment and curvature. VERTEBRAE: No fracture or bone lesion. Maintained height, normal segmentation. DISCS: Multilevel disc space narrowing with osteophytes. HARDWARE: Stable surgical hardware lumbar spine incompletely visualized. MEDIASTINUM AND SOFT TISSUES: Normal heart size and aortic contour. No soft tissue abnormality. VISUALIZED LUNG ZAPATA: Clear. OTHER: No other significant finding. IMPRESSION: NO ACUTE OSSEOUS ABNORMALITY. NO SIGNIFICANT CHANGE FROM THE PRIOR STUDY. TECHNICAL DOCUMENTATION: JOB ID: [id number] [employer]- All Rights Reserved
--- NOTE | 2017-09-28 17:57 | RADIOLOGY REPORT (SQ) ---
EXAM DESCRIPTION: L SPINE 2 VIEWS COMPLETED DATE/TIME: 09/28/2017 5:46 pm REASON FOR STUDY: fall/trouble speaking COMPARISON: 01/10/2016. NUMBER OF VIEWS: Three views. TECHNIQUE: AP, lateral and sacral radiographic images acquired of the lumbar spine. LIMITATIONS: None. FINDINGS: MINERALIZATION: Normal. SEGMENTATION: Normal. No transitional anatomy. ALIGNMENT: Grade 2 anterolisthesis of L 3 on L 4, grade 1 anterolisthesis L 4 on L 5, and grade 2 ant erolisthesis L5 on S1. VERTEBRAE: Maintained height. No fracture or worrisome bone lesion. DISCS: Disc space narrowing with endplate sclerosis at L3-L4 which has progressed since the prior gil dy. POSTERIOR ELEMENTS: Surgical changes and hardware. HARDWARE: Posterior hardware and stimulator electrodes. PARASPINAL SOFT TISSUES: Normal. PELVIS: Intact as visualized. No fractures or worrisome bone lesions. SI joints intact. OTHER: No other significant finding. IMPRESSION: EXTENSIVE CHRONIC DEGENERATIVE CHANGES AND SURGICAL CHANGES WITH HARDWARE. DEGENERATIVE DISC DISEASE AT L3-L4 HAS PROGRESSED SINCE THE PRIOR STUDY. TECHNICAL DOCUMENTATION: JOB ID: [id number] [employer]- All Rights Reserved
--- NOTE | 2017-09-29 00:43 | RADIOLOGY REPORT (SQ) ---
EXAM DESCRIPTION: CTA CHEST (accession [id number]), CT ABD/PELVIS WITH IV ONLY (accession [id number]) CLINICAL HISTORY: 62 years Female, syncope, leg swelling COMPARISON: CT abdomen pelvis, 09/29/2016. TECHNIQUE: 100 mL Isovue-370 contrast. Coronal and sagittal reformat. This exam was performed according to our departmental dose-optimization program, which includes automated exposure control, adjustment of the mA and/or kV according to patient size and/or use of iterative reconstruction technique. FINDINGS: Heterogeneous macrolobulated enlargement of the left thyroid lobe with possible 4.8 cm mass like component of its inferior pole with calcification. Stable Grade two, 0.8 cm L3 anterolisthesis and bilateral L3 spondylolysis. Posterior L4-S1 hardware fusion including stable grade 3, 1.2 cm L5 anterolisthesis, severe L5-S1 disc height loss, and mild posterior L5 vertebral height loss. Moderate vacuum disc desiccation of the lower thoracic spine. Cholecystectomy clips. Atherosclerosis. Colonic diverticulosis. Nonspecific microlobulation of the liver surface. No significant pulmonary embolus. No right ventricular strain. Prominent descending thoracic aortic diameter measuring 3.4 x 3.3 cm. Inferior axillae, mediastinum, lungs, airway, lymphatics, heart, vasculature, pancreas, spleen, adrenals, renal system, gastrointestinal tract, pelvic organs, lymphatics, and musculoskeleton appear otherwise unremarkable. IMPRESSION: 1. Left thyroid enlargement with possible 4.8 cm mass; thyroid ultrasound recommended. 2. No acute cardiopulmonary findings. No evidence of pulmonary embolus. 3. No acute findings of the abdomen -pelvis.
--- NOTE | 2017-09-29 00:43 | RADIOLOGY REPORT (SQ) ---
EXAM DESCRIPTION: CTA CHEST (accession [id number]), CT ABD/PELVIS WITH IV ONLY (accession [id number]) CLINICAL HISTORY: 62 years Female, syncope, leg swelling COMPARISON: CT abdomen pelvis, 09/29/2016. TECHNIQUE: 100 mL Isovue-370 contrast. Coronal and sagittal reformat. This exam was performed according to our departmental dose-optimization program, which includes automated exposure control, adjustment of the mA and/or kV according to patient size and/or use of iterative reconstruction technique. FINDINGS: Heterogeneous macrolobulated enlargement of the left thyroid lobe with possible 4.8 cm mass like component of its inferior pole with calcification. Stable Grade two, 0.8 cm L3 anterolisthesis and bilateral L3 spondylolysis. Posterior L4-S1 hardware fusion including stable grade 3, 1.2 cm L5 anterolisthesis, severe L5-S1 disc height loss, and mild posterior L5 vertebral height loss. Moderate vacuum disc desiccation of the lower thoracic spine. Cholecystectomy clips. Atherosclerosis. Colonic diverticulosis. Nonspecific microlobulation of the liver surface. No significant pulmonary embolus. No right ventricular strain. Prominent descending thoracic aortic diameter measuring 3.4 x 3.3 cm. Inferior axillae, mediastinum, lungs, airway, lymphatics, heart, vasculature, pancreas, spleen, adrenals, renal system, gastrointestinal tract, pelvic organs, lymphatics, and musculoskeleton appear otherwise unremarkable. IMPRESSION: 1. Left thyroid enlargement with possible 4.8 cm mass; thyroid ultrasound recommended. 2. No acute cardiopulmonary findings. No evidence of pulmonary embolus. 3. No acute findings of the abdomen -pelvis.
[2017-09-29] MEDS ORDERED: NORMAL SALINE 500 ML IV ONE (00:54)
--- NOTE | 2017-09-29 00:58 | RADIOLOGY REPORT (SQ) ---
EXAM DESCRIPTION: CT CERVICAL SPINE WITHOUT CLINICAL HISTORY: 62 years Female, neck pain, trauma COMPARISON: None. TECHNIQUE: No contrast. Coronal and sagittal reformat. This exam was performed according to our departmental dose-optimization program, which includes automated exposure control, adjustment of the mA and/or kV according to patient size and/or use of iterative reconstruction technique. FINDINGS: 0.3 cm C4 anterolisthesis, 0.2 cm degenerative C5 retrolisthesis, and 0.2 cm degenerative C6 retrolisthesis; no comparison exam. No fracture. Moderate diffuse reversed lordotic curvature of the mid cervical spine. Moderate multilevel spondylosis and small-moderate disc bulge-osteophyte complex including mild spinal canal stenosis between the C5 and C7 levels and mild-moderate bilateral C4, C6, and C7 foraminal stenoses. Multilevel moderate to severe disc desiccation includes the C3-C4, and C5-T3 levels. Left thyroid enlargement include a possible 4.4 cm mass with calcification of the inferior pole. IMPRESSION: Mild/moderate reversed lordotic curvature of the mid cervical spine and 0.3 cm C4 anterolisthesis. Differential diagnosis includes soft tissue injury/spasm.
[2017-09-29] MEDS ORDERED: HYDROMORPHONE HCL INJ/PF 2 MG/ML AMPULE IV ONE ×2 (02:18→03:42)
--- NOTE | 2017-09-29 03:44 | ER Document Report ---
ED General - General Chief Complaint: Syncope Stated Complaint: FEET SWELLING Time Seen by Provider: 09/28/17 16:58 Notes: Patient is a 62-year-old female who had a possible syncopal episode. She is unsure if she fully passed out or not. She did fall. She also fell just over week ago and hurt her back. She has had chronic back pain and continued back pain since then. Patient's daughter says that last week she also had some possible slurring of her speech. She has not had any slurring of her speech today. Patient has no fevers. No focal weakness or numbness. They also noticed that her legs have been more swollen. Said both legs are swollen and this is not normal for her. They went to Dr. Stephens's office today. Dr. Stephens is told her to come to the ER for further evaluation and workup. Patient to have a mild headache but she says she might have hit her head when she fell. She also has some neck pain. She also has some thoracic and lumbar pain. Said thoracic pain is there ever since a fall last week. Patient's lumbar spine pain is chronic and she is on Dilaudid 3-4 mg every 4 hours for this. She has been admitted for stroke in the past. In reviewing her previous records her MRIs are negative and it is unclear if she actually had a stroke. She has been seen twice since her previous admission for possible syncopal episodes. Each time attributed that she is most likely somnolent and passing out because of the high dose of opiate pain medicine she is on. TRAVEL OUTSIDE OF THE [place] IN LAST 30 DAYS: No - Related Data Allergies/Adverse Reactions: No Known Allergies Allergy (Verified 05/06/17 21:22) Past Medical History - Social History Smoking Status: Former Smoker Chew tobacco use (# tins/day): No Frequency of alcohol use: None Drug Abuse: None Family History: Reviewed & Not Pertinent Patient has suicidal ideation: No Patient has homicidal ideation: No - Past Medical History Cardiac Medical History: Reports: Hx Hypertension Denies: Hx Hypercholesterolemia Endocrine Medical History: Denies: Hx Diabetes Mellitus Type 1, Hx Diabetes Mellitus Type 2 Renal/ Medical History: Denies: Hx Peritoneal Dialysis Musculoskeltal Medical History: Reports Hx Arthritis Psychiatric Medical History: Reports: Hx Depression Past Surgical History: Reports: Hx Cholecystectomy - Immunizations Hx Diphtheria, Pertussis, Tetanus Vaccination: Yes Review of Systems - Review of Systems Notes: My Normal Review Basic REVIEW OF SYSTEMS: CONSTITUTIONAL : Denies fever, chills, or sweats. Denies recent illness. EENT: Denies eye, ear, throat, or mouth pain or symptoms. Denies nasal or sinus congestion. CARDIOVASCULAR: Denies chest pain. RESPIRATORY: Denies cough, cold, or chest congestion. Denies shortness of breath, difficulty breathing, or wheezing. GASTROINTESTINAL: Denies abdominal pain. Denies nausea, vomiting, or diarrhea. Denies constipation. Last BM: GENITOURINARY: Denies difficulty urinating, painful urination, burning, frequency, or blood in urine. MUSCULOSKELETAL: Back pain. Leg swelling. SKIN: Denies rash or skin lesions. NEUROLOGICAL: Loss of consciousness. Has a headache. Denies weakness or paralysis or loss of use of either side. Slurred speech which has resolved. Denies sensory or motor loss. ALL OTHER SYSTEMS REVIEWED AND NEGATIVE. Physical Exam - Vital signs Vitals: Temp Pulse Resp BP Pulse Ox 98.5 F 114 H 20 132/89 H 97 09/28/17 15:11 09/28/17 15:11 09/28/17 15:11 09/28/17 15:11 09/28/17 15:11 - Notes Notes: General Appearance: Well nourished, alert, cooperative, no acute distress, moderate obvious discomfort. Vitals: reviewed, See vital signs table. Head: no swelling or tenderness to the head Eyes: PERRL, EOMI, Conjuctiva clear Mouth: No decreasd moisture Lungs: No wheezing, No rales, No rhonci, No accessory muscle use, good air exchange bilaterally. Heart: Tachycardic rate, Regular rythm, No murmur, no rub Abdomen: Normal BS, soft, No rigidity, No abdominal tenderness, No guarding, no rebound, no abdominal masses, no organomegaly Back: Pain to palpation over the entire lumbar spine as well as over the cervical spine. Some pain over the upper thoracic spine. No step-offs or deformities. Extremities: strength 5/5 in all extremities, good pulses in all extremities, bilateral lower extremities swelling that is not pitting. Skin: warm, dry, appropriate color, no rash Neuro: speech clear, oriented x 3, normal affect, responds appropriately to questions. Nerves II through XII are intact. Distal sensation intact. Patient has equal strength in her 4 extremities. Course - Re-evaluation Re-evalutation: 09/29/17 03:43 Patient's labs are finally back. I do not see anything of concern that is new in the labs. I did obtain a CTA of the chest abdomen pelvis because the patient had bilateral swelling and edema is in her legs and also has some tachycardia and possible syncopal episode. This was negative for any PE or venous clotting. I did talk to Dr. Stephens. No further recommendations and setting follow-up the patient in his office. I went spoke with patient again. She now says that she actually first started having some swelling in her right leg and then a week later she started having swelling in her left leg. I did talk to her and ask her to be willing to stay to have a venous duplex performed on both legs. She does agree to do this. I have ordered a venous duplex study to be done in the morning. If this is negative then she will most likely able to be discharged home. Patient still has some tachycardia that seems to be related to her pain. She has chronic pain and she has worsening pain after she recently fell. She takes Dilaudid 3 mg every 4 hours. This causes her to have a very poor pain tolerance and therefore it is very hard to get her pain under control. I will give her another dose of Dilaudid. Patient has no further concerns at this time. I did recheck her temp. She continues to be afebrile. - Vital Signs Vital signs: Temp Pulse Resp BP Pulse Ox 98.5 F 92 20 140/85 H 97 09/28/17 15:11 09/29/17 03:00 09/29/17 03:00 09/29/17 03:00 09/29/17 03:00 - Laboratory Result Diagrams: 09/28/17 17:15 09/28/17 17:15 Laboratory results interpreted by me: 09/28/17 09/28/17 17:15 17:15 Carbon Dioxide 33 H Glucose 117 H AST 96 H Alkaline Phosphatase 159 H Urine Urobilinogen 4.0 H Discharge - Discharge Clinical Impression: Leg swelling Back pain Qualifiers: Back pain location: back pain in unspecified location Chronicity: acute Back pain laterality: midline Qualified Code(s): M54.9 - Dorsalgia, unspecified Syncope Qualifiers: Syncope type: unspecified Qualified Code(s): R55 - Syncope and collapse Additional Instructions: Please take your pain medicine as prescribed. Please follow-up closely with Dr. Stephens today or tomorrow morning for reevaluation. Please talk to him about further treatment for your leg swelling. Please return to the ER if you have recurrent passing out episodes, fevers, chest pain, difficulty breathing, or feel unwell. Referrals: CLEO STEPHENS MD [Primary Care Provider] - 09/29/17
[2017-09-29] MEDS ORDERED: HYDROMORPHONE HCL 2 MG TABLET PO ONE (07:00)
--- NOTE | 2017-09-29 09:05 | XCELERA REPORT ---
[address] [address] Lower Extremity Venous Evaluation Name: TOM COWAN Age: 62 yrs Gender: Female : 1955 Patient Status: Emergency Patient Location: ER Study Date: 09/29/2017 08:06 AM Procedure: Color flow and duplex imaging bilaterally of the veins of the lower extremities as well as the Common Femoral veins. Reason For Study: leg swelling Ordering Physician: JAYJAY VIZCAINO Performed By: Atiya Ivan Right Sided Venous Evaluation Normal vessel filling wall to wall, compression and augmentation as well as Colour flow down to the infrageniculate veins. Left Sided Venous Evaluation Normal vessel filling wall to wall, compression and augmentation as well as Colour flow down to the infrageniculate veins. Interpretation Summary No duplex evidence of DVT or obstruction in the bilateral lower extremities. : JAYJAY VIZCAINO > Anival Kemp
[2017-09-29 09:09] VITALS: BP 116/59
== END 2017-09-29 09:19 | disposition home or self-care (01) ==
LOC: ER 15:01
DX: R55 Syncope and collapse (principal); M79.89 Other specified soft tissue disorders; R60.0 Localized edema; R51 Headache; M54.2 Cervicalgia; M54.6 Pain in thoracic spine; W19.XXXA Unspecified fall, initial encounter; G89.29 Other chronic pain; M54.5 Low back pain; Z79.891 Long term (current) use of opiate analgesic; Z87.891 Personal history of nicotine dependence; I10 Essential (primary) hypertension; R00.0 Tachycardia, unspecified
CPT/HCPCS: 93005; 96376; 99285; 96374; 36415; 84443; 85025; 80053; 81001; 84484; 93970 ×2; 72100; 72070; 70450; 71275; 72125; 74177; 93010; J3490; J1170; J7040

== ENCOUNTER 2017-11-16 07:20 | Inpatient (IN) | payer MEDICAID ==
--- NOTE | 2017-11-16 08:00 | ER Document Report ---
ED General - General Chief Complaint: Nausea/Vomiting/Diarrhea Stated Complaint: VOMITING Time Seen by Provider: 11/16/17 07:52 Mode of Arrival: Ambulatory Information source: Patient, Relative - [facility] TRAVEL OUTSIDE OF THE [place] IN LAST 30 DAYS: No - HPI Notes: 62-year-old female with a history of hypertension, depression, hypercholesterolemia, chronic back pain presents today with complaints of nausea vomiting with tremors 3 days. Patient denies any new foods, medications or travel. Patient is currently taking hydrocodone 4 mg tablets every 6 hours as needed for chronic pain. Denies any recent URI or coughing. Patient states she has been taking her pain management medication as directed. Denies illicit drug use. patient reports she is having loose stool, denies diarrhea. Denies fevers, chills, chest pain,palpitations, shortness of breath , dyspnea, nausea, vomiting, diarrhea, abdominal pain, hematuria,blurred vision , double vision, loss of vision, speech changes, LH, dizziness, syncope, headaches, wheezing, ST, URI, neck pain, weakness, bowel or bladder dysfunction , saddle anesthesia, numbness or tingling in bilateral upper or lower extremities equally, muscle paralysis, weakness in bilateral upper or lower extremities equally or rash. Denies IV drug use. - Related Data Allergies/Adverse Reactions: No Known Allergies Allergy (Verified 05/06/17 21:22) Past Medical History - General Information source: Patient, Relative - [facility] - Social History Smoking Status: Current Every Day Smoker Chew tobacco use (# tins/day): No Frequency of alcohol use: None Drug Abuse: None Family History: Reviewed & Not Pertinent Patient has suicidal ideation: No Patient has homicidal ideation: No - Past Medical History Cardiac Medical History: Reports: Hx Hypercholesterolemia, Hx Hypertension Neurological Medical History: Reports: Hx Seizures Endocrine Medical History: Denies: Hx Diabetes Mellitus Type 1, Hx Diabetes Mellitus Type 2 Renal/ Medical History: Denies: Hx Peritoneal Dialysis GI Medical History: Reports: Hx Gastroesophageal Reflux Disease Musculoskeltal Medical History: Reports Hx Arthritis Psychiatric Medical History: Reports: Hx Depression Past Surgical History: Reports: Hx Cholecystectomy - Immunizations Hx Diphtheria, Pertussis, Tetanus Vaccination: Yes Review of Systems - Review of Systems Notes: REVIEW OF SYSTEMS: CONSTITUTIONAL : Denies fever, chills, or sweats. Denies recent illness. EENT: Denies eye, ear, throat, or mouth pain or symptoms. Denies nasal or sinus congestion or discharge. Denies throat, tongue, or mouth swelling or difficulty swallowing. CARDIOVASCULAR: Denies chest pain. Denies palpitations or racing or irregular heart beat. Denies ankle edema. RESPIRATORY: Denies cough, cold, or chest congestion. Denies shortness of breath, difficulty breathing, or wheezing. GASTROINTESTINAL: Denies abdominal pain or distention. Reports nausea, vomiting, and loose stool. Denies blood in vomitus, stools, or per rectum. Denies black, tarry stools. Denies constipation. GENITOURINARY: Denies difficulty urinating, painful urination, burning, frequency, blood in urine, or discharge. FEMALE GENITOURINARY: Denies vaginal bleeding, heavy or abnormal periods, irregular periods. Denies vaginal discharge or odor. MUSCULOSKELETAL: Denies back or neck pain or stiffness. Denies joint pain or swelling. SKIN: Denies rash, lesions or sores. HEMATOLOGIC : Denies easy bruising or bleeding. LYMPHATIC: Denies swollen, enlarged glands. NEUROLOGICAL: Denies confusion or altered mental status. Denies passing out or loss of consciousness. Denies dizziness or lightheadedness. Denies headache. Denies weakness or paralysis or loss of use of either side. Denies problems with gait or speech. Denies sensory loss, numbness, or tingling. Denies seizures. PSYCHIATRIC: Denies anxiety or stress. Denies depression, suicidal ideation, or homicidal ideation. ALL OTHER SYSTEMS REVIEWED AND NEGATIVE. PHYSICAL EXAMINATION: GENERAL: Frail women in no acute distress who appears to be in no distress HEAD: Atraumatic, normocephalic. EYES: Pupils equal round and reactive to light, extraocular movements intact, conjunctiva are normal. ENT: Nares patent, oropharynx clear without exudates. Moist mucous membranes. NECK: Normal range of motion, supple without lymphadenopathy LUNGS: Breath sounds clear to auscultation bilaterally and equal. No wheezes rales or rhonchi. HEART: Regular rate and rhythm without murmurs ABDOMEN: Soft, nontender, nondistended abdomen. No guarding, no rebound. No masses appreciated. Female : deferred Musculoskeletal: Normal range of motion, no pitting or edema. No cyanosis. NEUROLOGICAL: Cranial nerves grossly intact. Normal speech, normal gait. Normal sensory, motor exams PSYCH: Normal mood, normal affect. SKIN: Warm, Dry, normal turgor, no rashes or lesions noted. Dictation was performed using [employer] voice recognition software Physical Exam - Vital signs Vitals: Temp Pulse Resp BP Pulse Ox 97.9 F 112 H 18 129/54 H 97 11/16/17 07:28 11/16/17 07:28 11/16/17 07:28 11/16/17 07:28 11/16/17 07:28 Course - Re-evaluation Re-evalutation: 11/16/17 12:41 Patient given 1 L of IV fluids, CBC shows a leukocytosis of 15, with elevated creatinine of 4.85 with a BUN of 31. Patient also has elevated troponin at 0.2 with a CK of 985. Potassium 3.1, report will replace with potassium chloride 40 meq. chest x-ray shows possible pneumonia and right lower lobe. CT of head negative for any acute findings, negative for stroke. Laboratory findings does indicate that patient is slightly dehydrated due to elevated hematocrit and hemoglobin as well as BUN being elevated. Patient is in no distress, vitals are stable. Denies any pain. Consulted with Dr. Cordova, undercollar baster on-call , guarding patient's pertinent laboratory findings at 1105. Stated that they will consult with admission. 1gram of rocephin given. Also with Dr. Irene, his PCP, called for him to come see the patient for admission. Dr. Reyna to speak to this provider at this time. Called back to 1145 Dr. Irene, he is unable to speak at this time. Dr. Irene called back at 1200, agreed for admission for acute renal failure and rhabdomyolysis. Patient is getting maintenance fluids will repeat troponin Patient and family informed of patient' s admission for acute renal failure and rhabdomyolysis to the medical floor with telemetry, patient agreed with plan of care sustained. Patient continued to get IV fluids. - Vital Signs Vital signs: Temp Pulse Resp BP Pulse Ox 97.9 F 112 H 18 102/60 97 11/16/17 07:28 11/16/17 07:28 11/16/17 11:00 11/16/17 10:57 11/16/17 11:00 - Laboratory Result Diagrams: 11/16/17 08:38 11/16/17 08:38 Laboratory results interpreted by me: 0311/16/17 11/16/17 08:38 08:38 08:38 WBC 15.1 H Hgb 16.0 H Hct 48.8 H Absolute Neutrophils 9.5 H Absolute Monocytes 1.6 H Potassium 3.1 L Carbon Dioxide 18 L BUN 32 H Creatinine 4.85 H Est GFR ( Amer) 11 L Est GFR (Non-Af Amer) 9 L Glucose 111 H Lactic Acid Direct Bilirubin 0.6 H AST 55 H Creatine Kinase 981 H Urine Protein Urine Bilirubin Urine Urobilinogen Urine Ascorbic Acid Salicylates < 1.0 L Acetaminophen < 10 L 11/16/17 11/16/17 08:55 11:09 WBC Hgb Hct Absolute Neutrophils Absolute Monocytes Potassium Carbon Dioxide BUN Creatinine Est GFR ( Amer) Est GFR (Non-Af Amer) Glucose Lactic Acid 3.2 H Direct Bilirubin AST Creatine Kinase Urine Protein 100 H Urine Bilirubin SMALL H Urine Urobilinogen 2.0 H Urine Ascorbic Acid 20 H Salicylates Acetaminophen - EKG Interpretation by [place] EKG shows normal: Sinus rhythm Rate: Normal - HR 90 Rhythm: NSR When compared to previous EKG there are: No significant change - non STEMI. noted prolonged QT interval. Discharge - Discharge Clinical Impression: Rhabdomyolysis Qualifiers: Rhabdomyolysis type: traumatic Encounter type: initial encounter Qualified Code (s): T79.6XXA - Traumatic ischemia of muscle, initial encounter Acute renal failure (ARF) Qualifiers: Acute renal failure type: unspecified Qualified Code(s): N17.9 - Acute kidney failure, unspecified Condition: Good Disposition: ADMITTED INPATIENT Admitting Provider: Gabriella Unit Admitted: Telemetry
--- NOTE | 2017-11-16 08:37 | RADIOLOGY REPORT (SQ) ---
EXAM DESCRIPTION: CHEST PA/LAT COMPLETED DATE/TIME: 11/16/2017 8:23 am REASON FOR STUDY: reports cp x 2 days ago COMPARISON: None. EXAM PARAMETERS: NUMBER OF VIEWS: two views TECHNIQUE: Digital Frontal and Lateral radiographic views of the chest acquired. RADIATION DOSE: NA LIMITATIONS: Poor positioning. FINDINGS: LUNGS AND PLEURA: Linear increased density in the right lower lobe with some elevation of right hemidiaphragm probably representing atelectasis. Pneumonia cannot be excluded. Lungs are othe rwise clear. No effusions. MEDIASTINUM AND HILAR STRUCTURES: No masses or contour abnormalities. HEART AND VASCULAR STRUCTURES: Heart normal size. No evidence for failure. BONES: No acute findings. HARDWARE: None in the chest. OTHER: No other significant finding. IMPRESSION: Linear increased density in the right lower lobe probably atelectasis. Pneumonia cannot be excluded. TECHNICAL DOCUMENTATION: JOB ID: [id number] [employer]- All Rights Reserved Reading location - IP/workstation name: [email or web address]
--- NOTE | 2017-11-16 08:39 | RADIOLOGY REPORT (SQ) ---
EXAM DESCRIPTION: CT HEAD WITHOUT COMPLETED DATE/TIME: 11/16/2017 8:26 am REASON FOR STUDY: tremors, slightly altered mental status COMPARISON: None. TECHNIQUE: Axial images acquired through the brain without intravenous contrast. Images reviewed wi th bone, brain and subdural windows. Images stored on PACS. All CT scanners at this facility use dose modulation, iterative reconstruction, and/or weight based d osing when appropriate to reduce radiation dose to as low as reasonably achievable (ALARA). [facility]: Dose Right [facility]: CareDose [facility]: Dose Right [facility]: Teradose 4D [facility]: [employer] RADIATION DOSE: CT Rad equipment meets quality standard of care and radiation dose reduction techniq ues were employed. CTDIvol: 64.6 mGy. DLP: 1034 mGy-cm. mGy. LIMITATIONS: None. FINDINGS: VENTRICLES: Normal size and contour. CEREBRUM: No masses. No hemorrhage. No midline shift. No evidence for acute infarction. Normal gra y/white matter differentiation. No areas of low density in the white matter. CEREBELLUM: No masses. No hemorrhage. No alteration of density. No evidence for acute infarction. EXTRAAXIAL SPACES: No fluid collections. No masses. ORBITS AND GLOBE: No intra- or extraconal masses. Normal contour of globe without masses. CALVARIUM: No fracture. PARANASAL SINUSES: No fluid or mucosal thickening. SOFT TISSUES: No mass or hematoma. OTHER: No other significant finding. IMPRESSION: NORMAL BRAIN CT WITHOUT CONTRAST. EVIDENCE OF ACUTE STROKE: NO. COMMENT: Quality ID # [id number]: Final reports with documentation of one or more dose reduction techniques (e.g., Automated exposure control, adjustment of the mA and/or kV according to patient size, use of iterative reconstruction technique) TECHNICAL DOCUMENTATION: JOB ID: [id number] [employer]- All Rights Reserved Reading location - IP/workstation name: [email or web address]
[2017-11-16 08:45] LABS: ABSOLUTE BASOPHILS # (AUTO) 0.1 10^3/uL (0.0-0.2); ABSOLUTE EOSINOPHILS # (AUTO) 0.1 10^3/uL (0.0-0.6); ABSOLUTE LYMPHOCYTES (AUTO) 3.8 10^3/uL (0.5-4.7); ABSOLUTE MONOCYTES (AUTO) 1.6 10^3/uL (0.1-1.4); ABSOLUTE NEUT (AUTO) 9.5 10^3/uL (1.7-8.2); BASOPHILS % (AUTO) 0.4 % (0-2); EOSINOPHILS % (AUTO) 0.8 % (0-6); HEMATOCRIT 48.8 % (36.0-47.0); LYMPHOCYTES % (AUTO) 25.3 % (13-45); MEAN CORPUSCULAR HEMOGLOBIN 31.7 pg (27.0-33.4); MEAN CORPUSCULAR HGB CONC 32.9 g/dL (32.0-36.0); MEAN CORPUSCULAR VOLUME 97 fl (80-97); MONOCYTES % (AUTO) 10.6 % (3-13); PLATELET COUNT 183 10^3/uL (150-450); RED BLOOD COUNT 5.06 10^6/uL (3.72-5.28); SEGMENTED NEUTROPHILS % (AUTO) 62.9 % (42-78); TOTAL CELLS COUNTED % (AUTO) 100 %; WHITE BLOOD COUNT 15.1 10^3/uL (4.0-10.5)
[2017-11-16 09:08] LABS: ALANINE AMINOTRANSFERASE 43 U/L (9-52); ALBUMIN 3.8 g/dL (3.5-5.0); ALKALINE PHOSPHATASE 115 U/L (38-126); ANION GAP 15 (5-19); ASPARTATE AMINO TRANSFERASE 55 U/L (14-36); BILIRUBIN,DIRECT 0.6 mg/dL (0.0-0.4); BILIRUBIN,TOTAL 0.9 mg/dL (0.2-1.3); BLOOD UREA NITROGEN 32 mg/dL (7-20); C-REACTIVE PROTEIN 8.3 mg/L (<10.0); CARBON DIOXIDE 18 mmol/L (22-30); CHLORIDE 105 mmol/L (98-107); CREATINE KINASE 981 U/L (30-135); GLUCOSE 111 mg/dL (75-110); POTASSIUM 3.1 mmol/L (3.6-5.0); SODIUM 138.2 mmol/L (137-145); TOTAL PROTEIN 7.8 g/dL (6.3-8.2)
[2017-11-16 09:09] LABS: ALCOHOL < 10 mg/dL (NONE DETECTED)
[2017-11-16 09:43] LABS: AMORPHOUS SEDIMENT,URINE TRACE /HPF; APPEARANCE,URINE CLOUDY; BILIRUBIN,URINE SMALL (NEGATIVE); GLUCOSE, URINE NEGATIVE (NEGATIVE); KETONES,URINE NEGATIVE (NEGATIVE); LEUKOCYTE ESTERASE,URINE NEGATIVE (NEGATIVE); NITRITE,URINE NEGATIVE (NEGATIVE); PROTEIN,URINE 100 mg/dL (NEGATIVE); URINE SPECIFIC GRAVITY 1.023
[2017-11-16 09:47] LABS: COLOR,URINE YELLOW
[2017-11-16 09:55] LABS: URINE AMPHETAMINES SCREEN NEGATIVE; URINE BARBITURATES SCREEN NEGATIVE; URINE BENZODIAZEPINES SCREEN NEGATIVE; URINE COCAINE SCREEN NEGATIVE; URINE MARIJUANA (THC) SCREEN NEGATIVE; URINE METHADONE SCREEN NEGATIVE; URINE PHENCYCLIDINE SCREEN NEGATIVE
[2017-11-16 10:28] LABS: ACETAMINOPHEN < 10 ug/mL (10-30); SALICYLATE < 1.0 mg/dL (2.0-20.0)
[2017-11-16] MEDS ORDERED: NORMAL SALINE 1000 ML 1,000 ML IV ONE (10:55)
[2017-11-16] MEDS ORDERED: POTASSIUM CHLORIDE 10 MEQ TABLET.SA PO ONE ×3 (11:03→16:00)
[2017-11-16] MEDS ORDERED: NORMAL SALINE 1000 ML 1,000 ML IV PRN ×2 (11:32→13:32)
[2017-11-16] MEDS ORDERED: HYDROMORPHONE HCL INJ/PF 2 MG/ML AMPULE IV ONE (11:33)
[2017-11-16] MEDS ORDERED: CEFTRIAXONE INJ 1000 MG VIAL IM ONE (12:09)
[2017-11-16] MEDS ORDERED: CEFTRIAXONE INJ 1000 MG VIAL IV ONE (13:03)
[2017-11-16] MEDS ORDERED: ACETAMINOPHEN 325 MG TABLET PO PRN (14:43)
[2017-11-16] MEDS ORDERED: ZOLPIDEM TARTRATE 5 MG TABLET PO PRN (14:43)
[2017-11-16] MEDS ORDERED: ONDANSETRON HCL INJ/PF 4 MG/2 ML SDV IV PRN (15:17)
--- NOTE | 2017-11-16 15:17 | PDOC H&P ---
History of Present Illness Admission Date/PCP: 11/16/17 11:50 CLEO STEPHENS Patient complains of: Nausea and Vomiting for 3 days; Hx of fall 3 days ago. History of Present Illness: TOM COWAN is a 62 year old female with hx of HTN/Hyperlipidemia/PAD/CVD s.p TIA/GERD/Chronic Back pain/Vitamin D def/Hepatitis C/Rhinitis/Obesity/Chronic smoker, who was in her baseline till 3days ago when she started having nausea/ vomiting; she also had a witnessed fall 3 days ago. On account of the worsening of the symptoms, she came to the ER today. Her BUN/Cr was 32/4.85; CK- 985 and repeat is 1009; WBC- 15.1; Potassium was 3.1. She had KCL 40 MEQ , Rocephin 1 G IV and IV fluid bolus at ED. She was admitted at Telemetry floor. ED provider had consulted senior regulatory affairs specialist, Dr Cordova on this pt and she promised to follow up with her mgt. Past Medical History Cardiac Medical History: Reports: Hyperlipidema, Hypertension Neurological Medical History: Reports: Seizures Endocrine Medical History: Denies: Diabetes Mellitus Type 1, Diabetes Mellitus Type 2 GI Medical History: Reports: Gastroesophageal Reflux Disease Musculoskeltal Medical History: Reports: Arthritis Psychiatric Medical History: Reports: Depression Past Surgical History Past Surgical History: Reports: Cholecystectomy Social History Smoking Status: Current Every Day Smoker Hx Recreational Drug Use: Yes - stopped 6-7 years ago Drugs: Heroin Hx Prescription Drug Abuse: Yes Family History Family History: Reviewed & Not Pertinent Parental Family History Reviewed: Yes Children Family History Reviewed: Yes Sibling(s) Family History Reviewed.: Yes Medication/Allergy Home Medications: Aspirin [Ecotrin 81 mg EC Tablet] 81 mg PO DAILY 04/22/17 Ergocalciferol (Vitamin D2) [Drisdol 50,000 unit (1.25MG) Capsule] 1 cap PO STILL@ 1000 PRN 04/22/17 Gabapentin [Neurontin] 600 mg PO Q8 04/22/17 Hydromorphone HCl [Dilaudid] 4 mg PO 5XDP PRN 04/22/17 Pantoprazole Sodium [Protonix] 40 mg PO DAILY 04/22/17 Atorvastatin Calcium [Lipitor 40 mg Tablet] 40 mg PO QHS #0 tablet 04/24/17 Potassium Chloride [Klor-Con 10 Meq Tablet.sa] 10 meq PO DAILY #30 tablet.sa 07/31 Ascorbic Acid [Vitamin C 500 mg Tablet] 1,000 mg PO DAILY 11/16/17 Famotidine [Pepcid AC] 20 mg PO DAILY 11/16/17 Losartan Potassium [Cozaar 50 mg Tablet] 50 mg PO DAILY 11/16/17 Allergies/Adverse Reactions: No Known Allergies Allergy (Verified 05/06/17 21:22) Review of Systems All systems: as per PMH Constitutional: PRESENT: as per HPI Eyes: PRESENT: as per HPI Ears: PRESENT: as per HPI Nose, Mouth, and Throat: PRESENT: as per HPI Breasts: PRESENT: as per HPI Cardiovascular: PRESENT: as per HPI Respiratory: PRESENT: as per HPI Gastrointestinal: PRESENT: nausea, vomiting Genitourinary: PRESENT: as per HPI Musculoskeletal: PRESENT: as per HPI Integumentary: PRESENT: as per HPI Neurological: PRESENT: tremor(s) Psychiatric: PRESENT: as per HPI Endocrine: PRESENT: as per HPI Hematologic/Lymphatic: PRESENT: as per HPI Physical Exam Vital Signs: Temp Pulse Resp BP Pulse Ox 97.9 F 112 H 18 102/60 97 11/16/17 07:28 11/16/17 07:28 11/16/17 11:00 11/16/17 10:57 11/16/17 11:00 General appearance: PRESENT: no acute distress, cooperative, obese, well- developed, well-nourished Head exam: PRESENT: atraumatic, normocephalic Eye exam: PRESENT: EOMI, PERRLA Ear exam: PRESENT: normal external ear exam, TM's normal bilaterally Mouth exam: PRESENT: dry mucosa, neck supple, tongue midline Neck exam: PRESENT: full ROM Respiratory exam: PRESENT: clear to auscultation duglas, symmetrical Cardiovascular exam: PRESENT: +S1, +S2 Pulses: PRESENT: +2 pedal pulses bilateral Vascular exam: PRESENT: normal capillary refill GI/Abdominal exam: PRESENT: normal bowel sounds, soft Rectal exam: PRESENT: black stool Extremities exam: PRESENT: full ROM Musculoskeletal exam: PRESENT: full ROM Neurological exam: PRESENT: alert, awake, oriented to person, oriented to place , oriented to time Psychiatric exam: PRESENT: normal mood Results Laboratory Results: 11/16/17 11/16/17 12:13 12:13 Creatine Kinase 1009 H Troponin I 0.145 Impressions: Chest X-Ray 11/16/17 07:48 IMPRESSION: Linear increased density in the right lower lobe probably atelectasis. Pneumonia cannot be excluded. Head CT 11/16/17 07:48 IMPRESSION: NORMAL BRAIN CT WITHOUT CONTRAST. EVIDENCE OF ACUTE STROKE: NO. Assessment & Plan - Diagnosis (1) Acute kidney injury Is this a current diagnosis for this admission?: Yes Plan: Ct with IV fluids normal saline with 20 MEQ of KCL at 125 cc/hr; strict input/ output chart; daily weight; monitor chemistries daily. (2) Rhabdomyolysis Qualifiers: Rhabdomyolysis type: traumatic Encounter type: initial encounter Qualified Code(s): T79.6XXA - Traumatic ischemia of muscle, initial encounter Is this a current diagnosis for this admission?: Yes Plan: Ct with Normal saline with 20 MEQ of KCL at 125 cc/hr; Monitor CK daily. (3) Hypokalemia Is this a current diagnosis for this admission?: Yes Plan: Pt received 40 MEQ of KCL at ED; ct with Normalslaine with 20 MEQ of KCL at 125 cc/hr; ct with KCl 10 MEQ qd po; monitor chemistries daily. (4) Leukocytosis Qualifiers: Leukocytosis type: unspecified Qualified Code(s): D72.829 - Elevated white blood cell count, unspecified Is this a current diagnosis for this admission?: Yes Plan: She received Rocephin 1 G IV at ED; we will f/u Blood and urine cultures and daily CBC. Monitor her vital signs closely. (5) Hypertension Qualifiers: Hypertension type: essential hypertension Qualified Code(s): I10 - Essential (primary) hypertension Is this a current diagnosis for this admission?: Yes Plan: Ct with Losartan 50/12.5 qd po; 2 g sodium diet. (6) Hyperlipidemia Qualifiers: Hyperlipidemia type: unspecified Qualified Code(s): E78.5 - Hyperlipidemia , unspecified Is this a current diagnosis for this admission?: Yes Plan: Ct with 200 mg cholesterol diet; hold [id number] mg qhs due to rhabdomyolysis. (7) Lumbago Qualifiers: Chronicity: unspecified Is this a current diagnosis for this admission?: Yes Plan: Ct with Dilaudid 2 mg q6h po prn; Gabapentin 300 mg q6h po. (8) Reflux esophagitis Is this a current diagnosis for this admission?: Yes Plan: Ct with Prevacid 30 mg qd po since Protonix is not in our formulary. (9) Vitamin D deficiency Is this a current diagnosis for this admission?: Yes Plan: Ct with Vitamin D [id number] weekly PO. (10) TIA (transient ischemic attack) Qualifiers: Transient cerebral ischemia type: unspecified Qualified Code(s): G45.9 - Transient cerebral ischemic attack, unspecified Is this a current diagnosis for this admission?: Yes Plan: Ct with Aspirin 81 mg qd po. (11) Hepatitis C Qualifiers: Viral hepatitis chronicity: chronic Is this a current diagnosis for this admission?: Yes Plan: Ct with Nadolol 20 mg qd po. (12) Rhinitis, allergic Qualifiers: Allergic rhinitis seasonality: unspecified seasonality Is this a current diagnosis for this admission?: Yes Plan: Ct with Claritin 10 mg q dpo. (13) Smoker Is this a current diagnosis for this admission?: Yes Plan: Ct with Nicotin patch 21 mg qd; smoking cessation counseling. (14) DVT prophylaxis Is this a current diagnosis for this admission?: Yes Plan: Ct with Heparin 5000iu q8h subcut; SCD. - Time Time Spent: 30 to 50 Minutes Smoking Cessation Education: 3 to 10 minutes Medications reviewed and adjusted accordingly: Yes Anticipated discharge: Home Within: within 72 hours - Inpatient Certification Medical Necessity: Failure to Improve With Outpatient Therapy, Significant Comorbidiites Make Outpatient Treatment Too Risky, Need Close Monitoring Due to Risk of Patient Decompensation, Need For IV Fluids, Need For Continuous Telemetry Monitoring, Risk of Complication if Not Cared For in Hospital, Risk of Diagnosis Which Will Require Inpatient Eval/Care/Monitoring
[2017-11-16] MEDS ORDERED: DOCUSATE SODIUM 100 MG CAPSULE PO ONE (16:00)
[2017-11-16] MEDS ORDERED: ASPIRIN 81 MG TABLET, ENT COATED PO ONE (16:00)
[2017-11-16] MEDS ORDERED: LOSARTAN POTASSIUM 50 MG TABLET PO ONE (17:00)
[2017-11-16] MEDS ORDERED: NADOLOL 40 MG TABLET PO ONE (17:00)
[2017-11-16] MEDS ORDERED: HYDROCHLOROTHIAZIDE 12.5 MG CAPSULE PO ONE (17:00)
[2017-11-16] MEDS: POTASSI CL 20 MEQ/NS 1L 1,000 ML IV PRN (17:07)
[2017-11-16] MEDS ORDERED: INFLUENZA ADLT QUAD (36MOS+) 2017-18 VAC 0.5 ML SYR IM PRN (20:04)
[2017-11-16] MEDS: METOCLOPRAMIDE HCL 10 MG TABLET PO SCH (21:26)
[2017-11-16] MEDS: GABAPENTIN 300 MG CAPSULE PO SCH (21:27)
[2017-11-16] MEDS: HEPARIN SOD (PORCINE) 5,000 UNIT/ML 1 ML SYRINGE SUBCUT SCH (21:29)
--- NOTE | 2017-11-16 21:52 | EKG REPORT ---
SEVERITY:- BORDERLINE ECG - SINUS RHYTHM BORDERLINE PROLONGED QT INTERVAL : Confirmed by: Dayton Pacheco 16-Nov-2017 21:52:07
[2017-11-17] MEDS: POTASSI CL 20 MEQ/NS 1L 1,000 ML IV PRN ×2 (00:45→12:57)
[2017-11-17 05:11] LABS: ABSOLUTE EOSINOPHILS # (AUTO) 0.2 10^3/uL (0.0-0.6); ABSOLUTE LYMPHOCYTES (AUTO) 3.5 10^3/uL (0.5-4.7); ABSOLUTE MONOCYTES (AUTO) 1.7 10^3/uL (0.1-1.4); BASOPHILS % (AUTO) 0.2 % (0-2); HEMATOCRIT 44.6 % (36.0-47.0); HEMOGLOBIN 14.9 g/dL (12.0-15.5); LYMPHOCYTES % (AUTO) 20.2 % (13-45); MEAN CORPUSCULAR HEMOGLOBIN 31.9 pg (27.0-33.4); MEAN CORPUSCULAR HGB CONC 33.4 g/dL (32.0-36.0); MEAN CORPUSCULAR VOLUME 96 fl (80-97); MONOCYTES % (AUTO) 9.6 % (3-13); PLATELET COUNT 173 10^3/uL (150-450); RED BLOOD COUNT 4.67 10^6/uL (3.72-5.28); RED CELL DISTRIBUTION WIDTH 13.5 % (11.5-14.0); TOTAL CELLS COUNTED % (AUTO) 100 %; WHITE BLOOD COUNT 17.4 10^3/uL (4.0-10.5)
[2017-11-17 05:29] LABS: ALANINE AMINOTRANSFERASE 36 U/L (9-52); ALBUMIN 3.4 g/dL (3.5-5.0); ALKALINE PHOSPHATASE 122 U/L (38-126); ANION GAP 11 (5-19); ASPARTATE AMINO TRANSFERASE 55 U/L (14-36); BILIRUBIN,DIRECT 0.6 mg/dL (0.0-0.4); BILIRUBIN,TOTAL 0.8 mg/dL (0.2-1.3); BLOOD UREA NITROGEN 17 mg/dL (7-20); CALCIUM 8.9 mg/dL (8.4-10.2); CARBON DIOXIDE 18 mmol/L (22-30); CHLORIDE 113 mmol/L (98-107); CHOLESTEROL 102.83 mg/dL (0-200); CREATINE KINASE 953 U/L (30-135); GLUCOSE 118 mg/dL (75-110); PHOSPHORUS 1.6 mg/dL (2.5-4.5); POTASSIUM 3.2 mmol/L (3.6-5.0); SODIUM 142.3 mmol/L (137-145); TOTAL PROTEIN 7.3 g/dL (6.3-8.2); TRIGLYCERIDES 104 mg/dL (<150)
[2017-11-17 05:40] LABS: DIRECT LDL 46 mg/dL (<100)
[2017-11-17] MEDS: HEPARIN SOD (PORCINE) 5,000 UNIT/ML 1 ML SYRINGE SUBCUT SCH ×3 (06:21→22:10)
[2017-11-17] MEDS: GABAPENTIN 300 MG CAPSULE PO SCH ×3 (06:21→22:11)
[2017-11-17] MEDS: LANSOPRAZOLE 30 MG TAB.RAP.DR PO SCH (06:21)
[2017-11-17] MEDS: METOCLOPRAMIDE HCL 10 MG TABLET PO SCH ×3 (06:21→22:10)
[2017-11-17] MEDS ORDERED: (PENDING PHARMACY ID) (Nadolol [Corgard] 20 MG) PO SCH (10:00)
[2017-11-17] MEDS ORDERED: (PENDING PHARMACY ID) (Losartan/Hydrochlorothiazide [Hyzaar 50-12.5 Tablet] 1 EACH) PO SCH (10:00)
[2017-11-17] MEDS: POTASSIUM CHLORIDE 10 MEQ TABLET.SA PO SCH (11:40)
[2017-11-17] MEDS: HYDROCHLOROTHIAZIDE 12.5 MG CAPSULE PO SCH (11:40)
[2017-11-17] MEDS: DOCUSATE SODIUM 100 MG CAPSULE PO SCH (11:40)
[2017-11-17] MEDS: LOSARTAN POTASSIUM 50 MG TABLET PO SCH (11:41)
[2017-11-17] MEDS: ASPIRIN 81 MG TABLET, ENT COATED PO SCH (11:41)
[2017-11-17] MEDS: NICOTINE 21 MG/24 HR PATCH.TD24 TD SCH (11:41)
[2017-11-17] MEDS: POTASSI CL 20 MEQ/50 ML RIDER 20 MEQ/50 ML RTUPB IV SCH ×2 (12:57→19:30)
[2017-11-17] MEDS: NADOLOL 40 MG TABLET PO SCH (12:59)
--- NOTE | 2017-11-17 12:59 | PDOC PROGRESS REPORT ---
Subjective Progress Note for:: 11/17/17 Subjective:: She is feeling much better. Her BUN/Cr decreased to 17/1.46; C has decreased to 953; Her Potassium is 3.2 and WBC increased to 17.4; her Urine culture showed no significant growth. Blood culture is pending. We will give her KCL 20 MEQ IVx2 doses; Put her on Rocephin 1 G IV daily pending blood culture report. Reason For Visit: ACUTE KIDNEY INJURY/RHABDOMYOLYSIS/HYPOKALEMIA Physical Exam Vital Signs: Temp Pulse Resp BP Pulse Ox 98.7 F 78 18 100/60 94 11/17/17 12:22 11/17/17 12:22 11/17/17 12:22 11/17/17 12:22 11/17/17 12:22 Intake & Output 11/16/17 11/17/17 11/18/17 06:59 06:59 06:59 Intake Total 1500 Balance 1500 Weight 72.5 kg General appearance: PRESENT: no acute distress, cooperative, well-developed, well-nourished Head exam: PRESENT: atraumatic, normocephalic Eye exam: PRESENT: EOMI, PERRLA Ear exam: PRESENT: normal external ear exam, TM's normal bilaterally Mouth exam: PRESENT: moist, neck supple, tongue midline Neck exam: PRESENT: full ROM Respiratory exam: PRESENT: clear to auscultation duglas, symmetrical Cardiovascular exam: PRESENT: +S1, +S2 Pulses: PRESENT: +2 pedal pulses bilateral GI/Abdominal exam: PRESENT: normal bowel sounds, soft Rectal exam: PRESENT: deferred Extremities exam: PRESENT: full ROM Musculoskeletal exam: PRESENT: full ROM Neurological exam: PRESENT: alert, awake, oriented to person, oriented to place , oriented to time Psychiatric exam: PRESENT: normal mood Results Laboratory Results: 11/17/17 04:10 11/17/17 04:10 11/17/17 11/17/17 11/17/17 04:10 04:10 04:10 WBC 17.4 H RBC 4.67 Hgb 14.9 Hct 44.6 MCV 96 MCH 31.9 MCHC 33.4 RDW 13.5 Plt Count 173 Seg Neutrophils % 69.0 Lymphocytes % 20.2 Monocytes % 9.6 Eosinophils % 1.0 Basophils % 0.2 Absolute Neutrophils 12.0 H Absolute Lymphocytes 3.5 Absolute Monocytes 1.7 H Absolute Eosinophils 0.2 Absolute Basophils 0.0 Sodium 142.3 Potassium 3.2 L Chloride 113 H Carbon Dioxide 18 L Anion Gap 11 BUN 17 Creatinine 1.46 H Est GFR ( Amer) 44 L Est GFR (Non-Af Amer) 37 L Glucose 118 H Calcium 8.9 Phosphorus 1.6 L Magnesium 1.5 L Total Bilirubin 0.8 AST 55 H ALT 36 Alkaline Phosphatase 122 Total Protein 7.3 Albumin 3.4 L Triglycerides 104 Cholesterol 102.83 LDL Cholesterol Direct 46 VLDL Cholesterol 21.0 HDL Cholesterol 31 L TSH 0.12 L 11/16/17 11/16/17 11/17/17 12:13 12:13 04:10 Creatine Kinase 1009 H 953 H Troponin I 0.145 Impressions: Chest X-Ray 11/16/17 07:48 IMPRESSION: Linear increased density in the right lower lobe probably atelectasis. Pneumonia cannot be excluded. Head CT 11/16/17 07:48 IMPRESSION: NORMAL BRAIN CT WITHOUT CONTRAST. EVIDENCE OF ACUTE STROKE: NO. Assessment & Plan - Diagnosis (1) Acute kidney injury Is this a current diagnosis for this admission?: Yes Plan: Ct with IV fluids normal saline with 20 MEQ of KCL at 125 cc/hr; strict input/ output chart; daily weight; monitor chemistries daily. (2) Rhabdomyolysis Qualifiers: Rhabdomyolysis type: traumatic Encounter type: initial encounter Qualified Code(s): T79.6XXA - Traumatic ischemia of muscle, initial encounter Is this a current diagnosis for this admission?: Yes Plan: Ct with Normal saline with 20 MEQ of KCL at 125 cc/hr; Monitor CK daily. (3) Hypokalemia Is this a current diagnosis for this admission?: Yes Plan: Pt received 40 MEQ of KCL at ED; She was given KCL 20 MEQ IVx2 doses today. ct with Normal saline with 20 MEQ of KCL at 125 cc/hr; ct with KCl 10 MEQ qd po; monitor chemistries daily. (4) Leukocytosis Qualifiers: Leukocytosis type: unspecified Qualified Code(s): D72.829 - Elevated white blood cell count, unspecified Is this a current diagnosis for this admission?: Yes Plan: She received Rocephin 1 G IV at ED; Ct with Rocephin 1 G qd IV. we will f/u Blood cultures and daily CBC. Monitor her vital signs closely. (5) Hypertension Qualifiers: Hypertension type: essential hypertension Qualified Code(s): I10 - Essential (primary) hypertension Is this a current diagnosis for this admission?: Yes Plan: Ct with Losartan 50/12.5 qd po; 2 g sodium diet. (6) Hyperlipidemia Qualifiers: Hyperlipidemia type: unspecified Qualified Code(s): E78.5 - Hyperlipidemia , unspecified Is this a current diagnosis for this admission?: Yes Plan: Ct with 200 mg cholesterol diet; hold [id number] mg qhs due to rhabdomyolysis. (7) Lumbago Qualifiers: Chronicity: unspecified Is this a current diagnosis for this admission?: Yes Plan: Ct with Dilaudid 2 mg q6h po prn; Gabapentin 300 mg q6h po. (8) Reflux esophagitis Is this a current diagnosis for this admission?: Yes Plan: Ct with Prevacid 30 mg qd po since Protonix is not in our formulary. (9) Vitamin D deficiency Is this a current diagnosis for this admission?: Yes Plan: Ct with Vitamin D [id number] weekly PO. (10) TIA (transient ischemic attack) Qualifiers: Transient cerebral ischemia type: unspecified Qualified Code(s): G45.9 - Transient cerebral ischemic attack, unspecified Is this a current diagnosis for this admission?: Yes Plan: Ct with Aspirin 81 mg qd po. (11) Hepatitis C Qualifiers: Viral hepatitis chronicity: chronic Is this a current diagnosis for this admission?: Yes Plan: Ct with Nadolol 20 mg qd po. (12) Rhinitis, allergic Qualifiers: Allergic rhinitis seasonality: unspecified seasonality Is this a current diagnosis for this admission?: Yes Plan: Ct with Claritin 10 mg q dpo. (13) Smoker Is this a current diagnosis for this admission?: Yes Plan: Ct with Nicotin patch 21 mg qd; smoking cessation counseling. (14) DVT prophylaxis Is this a current diagnosis for this admission?: Yes Plan: Ct with Heparin 5000iu q8h subcut; SCD.
[2017-11-17] MEDS ORDERED: CEFTRIAXONE 1 GM/D5W RTU 1 GM/50 ML RTUPB IV SCH (13:00)
[2017-11-17] MEDS: CEFTRIAXONE SODIUM 1,000 MG in NORMAL SALINE 100 ML IV SCH (18:09)
[2017-11-17] MEDS: HYDROMORPHONE HCL 2 MG TABLET PO PRN (18:13)
[2017-11-17] MEDS ORDERED: POTASSI CL 20 MEQ/50 ML RIDER 20 MEQ/50 ML RTUPB IV ONE (19:27)
[2017-11-17] MEDS ORDERED: POTASSIUM CHLORIDE 20 MEQ/50 ML RTU IV ONE (19:45)
[2017-11-18] MEDS: HYDROMORPHONE HCL 2 MG TABLET PO PRN ×3 (00:54→19:20)
[2017-11-18] MEDS: LANSOPRAZOLE 30 MG TAB.RAP.DR PO SCH (05:36)
[2017-11-18] MEDS: METOCLOPRAMIDE HCL 10 MG TABLET PO SCH ×3 (05:36→21:34)
[2017-11-18] MEDS: GABAPENTIN 300 MG CAPSULE PO SCH ×3 (05:36→21:34)
[2017-11-18] MEDS: HEPARIN SOD (PORCINE) 5,000 UNIT/ML 1 ML SYRINGE SUBCUT SCH ×3 (05:40→21:37)
[2017-11-18 07:13] LABS: ABSOLUTE BASOPHILS # (AUTO) 0.1 10^3/uL (0.0-0.2); ABSOLUTE EOSINOPHILS # (AUTO) 0.3 10^3/uL (0.0-0.6); ABSOLUTE LYMPHOCYTES (AUTO) 6.2 10^3/uL (0.5-4.7); ABSOLUTE MONOCYTES (AUTO) 1.2 10^3/uL (0.1-1.4); ABSOLUTE NEUT (AUTO) 5.3 10^3/uL (1.7-8.2); BASOPHILS % (AUTO) 0.4 % (0-2); EOSINOPHILS % (AUTO) 2.3 % (0-6); HEMATOCRIT 39.2 % (36.0-47.0); LYMPHOCYTES % (AUTO) 47.4 % (13-45); MEAN CORPUSCULAR HGB CONC 33.1 g/dL (32.0-36.0); MEAN CORPUSCULAR VOLUME 97 fl (80-97); MONOCYTES % (AUTO) 9.2 % (3-13); PLATELET COUNT 135 10^3/uL (150-450); RED BLOOD COUNT 4.06 10^6/uL (3.72-5.28); RED CELL DISTRIBUTION WIDTH 13.9 % (11.5-14.0); SEGMENTED NEUTROPHILS % (AUTO) 40.7 % (42-78); TOTAL CELLS COUNTED % (AUTO) 100 %
[2017-11-18 07:31] LABS: ALANINE AMINOTRANSFERASE 31 U/L (9-52); ALBUMIN 2.8 g/dL (3.5-5.0); ALKALINE PHOSPHATASE 140 U/L (38-126); ANION GAP 9 (5-19); ASPARTATE AMINO TRANSFERASE 34 U/L (14-36); BILIRUBIN,DIRECT 0.4 mg/dL (0.0-0.4); BILIRUBIN,TOTAL 0.4 mg/dL (0.2-1.3); BLOOD UREA NITROGEN 14 mg/dL (7-20); CALCIUM 7.9 mg/dL (8.4-10.2); CARBON DIOXIDE 19 mmol/L (22-30); CHLORIDE 113 mmol/L (98-107); CREATINE KINASE 303 U/L (30-135); GLUCOSE 91 mg/dL (75-110); POTASSIUM 3.5 mmol/L (3.6-5.0); TOTAL PROTEIN 5.9 g/dL (6.3-8.2)
[2017-11-18] MEDS: LOSARTAN POTASSIUM 50 MG TABLET PO SCH (11:08)
[2017-11-18] MEDS: NADOLOL 40 MG TABLET PO SCH (11:08)
[2017-11-18] MEDS: NICOTINE 21 MG/24 HR PATCH.TD24 TD SCH (11:21)
[2017-11-18] MEDS: POTASSIUM CHLORIDE 10 MEQ TABLET.SA PO SCH (11:21)
[2017-11-18] MEDS: DOCUSATE SODIUM 100 MG CAPSULE PO SCH (11:22)
[2017-11-18] MEDS: ASPIRIN 81 MG TABLET, ENT COATED PO SCH (11:22)
[2017-11-18] MEDS: HYDROCHLOROTHIAZIDE 12.5 MG CAPSULE PO SCH (11:22)
--- NOTE | 2017-11-18 13:02 | PDOC PROGRESS REPORT ---
Subjective Progress Note for:: 11/18/17 Subjective:: She is doing well. Her BUn/cr is normal and Ck has decreased to 303; Her WBC is down to 13. Pt will be discharged home tomorrow. Reason For Visit: ACUTE KIDNEY INJURY/RHABDOMYOLYSIS/HYPOKALEMIA Physical Exam Vital Signs: Temp Pulse Resp BP Pulse Ox 98.2 F 68 20 95/56 L 96 11/18/17 08:34 11/18/17 08:34 11/18/17 08:34 11/18/17 08:34 11/18/17 08:34 Intake & Output 11/17/17 11/18/17 11/19/17 06:59 06:59 06:59 Intake Total 1500 3529 Balance 1500 3529 Weight 72.5 kg 59 kg General appearance: PRESENT: no acute distress, cooperative, obese, well- developed, well-nourished Head exam: PRESENT: atraumatic, normocephalic Eye exam: PRESENT: EOMI, PERRLA Ear exam: PRESENT: TM's normal bilaterally Mouth exam: PRESENT: moist, neck supple, tongue midline Neck exam: PRESENT: full ROM Respiratory exam: PRESENT: clear to auscultation duglas, symmetrical Cardiovascular exam: PRESENT: +S1, +S2 Pulses: PRESENT: +2 pedal pulses bilateral GI/Abdominal exam: PRESENT: normal bowel sounds, soft Rectal exam: PRESENT: deferred Extremities exam: PRESENT: full ROM Musculoskeletal exam: PRESENT: full ROM Neurological exam: PRESENT: alert, awake, oriented to person, oriented to place , oriented to time Psychiatric exam: PRESENT: normal mood Results Laboratory Results: 11/18/17 06:40 11/18/17 06:40 11/18/17 11/18/17 06:40 06:40 WBC 13.0 H RBC 4.06 Hgb 13.0 Hct 39.2 MCV 97 MCH 32.0 MCHC 33.1 RDW 13.9 Plt Count 135 L Seg Neutrophils % 40.7 L Lymphocytes % 47.4 H Monocytes % 9.2 Eosinophils % 2.3 Basophils % 0.4 Absolute Neutrophils 5.3 Absolute Lymphocytes 6.2 H Absolute Monocytes 1.2 Absolute Eosinophils 0.3 Absolute Basophils 0.1 Sodium 141.0 Potassium 3.5 L Chloride 113 H Carbon Dioxide 19 L Anion Gap 9 BUN 14 Creatinine 0.92 Est GFR ( Amer) > 60 Est GFR (Non-Af Amer) > 60 Glucose 91 Calcium 7.9 L Total Bilirubin 0.4 AST 34 ALT 31 Alkaline Phosphatase 140 H Total Protein 5.9 L Albumin 2.8 L 11/16/17 11/16/17 11/17/17 12:13 12:13 04:10 Creatine Kinase 1009 H 953 H Troponin I 0.145 11/18/17 06:40 Creatine Kinase 303 H Troponin I Impressions: Chest X-Ray 11/16/17 07:48 IMPRESSION: Linear increased density in the right lower lobe probably atelectasis. Pneumonia cannot be excluded. Head CT 11/16/17 07:48 IMPRESSION: NORMAL BRAIN CT WITHOUT CONTRAST. EVIDENCE OF ACUTE STROKE: NO. Assessment & Plan - Diagnosis (1) Acute kidney injury Is this a current diagnosis for this admission?: Yes Plan: Resolved.Ct with IV fluids normal saline with 20 MEQ of KCL at 75 cc/hr; strict input/output chart; daily weight; monitor chemistries daily. (2) Rhabdomyolysis Qualifiers: Rhabdomyolysis type: traumatic Encounter type: initial encounter Qualified Code(s): T79.6XXA - Traumatic ischemia of muscle, initial encounter Is this a current diagnosis for this admission?: Yes Plan: Ct with Normal saline with 20 MEQ of KCL at 75 cc/hr; Monitor CK daily. (3) Hypokalemia Is this a current diagnosis for this admission?: Yes Plan: Pt received 40 MEQ of KCL at ED; She was given KCL 20 MEQ IVx2 doses today. ct with Normal saline with 20 MEQ of KCL at 125 cc/hr; ct with KCl 10 MEQ qd po; monitor chemistries daily. (4) Leukocytosis Qualifiers: Leukocytosis type: unspecified Qualified Code(s): D72.829 - Elevated white blood cell count, unspecified Is this a current diagnosis for this admission?: Yes Plan: She received Rocephin 1 G IV at ED; Ct with Rocephin 1 G qd IV. we will f/u Blood cultures and daily CBC. Monitor her vital signs closely. (5) Hypertension Qualifiers: Hypertension type: essential hypertension Qualified Code(s): I10 - Essential (primary) hypertension Is this a current diagnosis for this admission?: Yes Plan: Ct with Losartan 50/12.5 qd po; 2 g sodium diet. (6) Hyperlipidemia Qualifiers: Hyperlipidemia type: unspecified Qualified Code(s): E78.5 - Hyperlipidemia , unspecified Is this a current diagnosis for this admission?: Yes Plan: Ct with 200 mg cholesterol diet; hold [id number] mg qhs due to rhabdomyolysis. (7) Lumbago Qualifiers: Chronicity: unspecified Is this a current diagnosis for this admission?: Yes Plan: Ct with Dilaudid 2 mg q6h po prn; Gabapentin 300 mg q6h po. (8) Reflux esophagitis Is this a current diagnosis for this admission?: Yes Plan: Ct with Prevacid 30 mg qd po since Protonix is not in our formulary. (9) Vitamin D deficiency Is this a current diagnosis for this admission?: Yes Plan: Ct with Vitamin D [id number] weekly PO. (10) TIA (transient ischemic attack) Qualifiers: Transient cerebral ischemia type: unspecified Qualified Code(s): G45.9 - Transient cerebral ischemic attack, unspecified Is this a current diagnosis for this admission?: Yes Plan: Ct with Aspirin 81 mg qd po. (11) Hepatitis C Qualifiers: Viral hepatitis chronicity: chronic Is this a current diagnosis for this admission?: Yes Plan: Ct with Nadolol 20 mg qd po. (12) Rhinitis, allergic Qualifiers: Allergic rhinitis seasonality: unspecified seasonality Is this a current diagnosis for this admission?: Yes Plan: Ct with Claritin 10 mg q dpo. (13) Smoker Is this a current diagnosis for this admission?: Yes Plan: Ct with Nicotin patch 21 mg qd; smoking cessation counseling. (14) DVT prophylaxis Is this a current diagnosis for this admission?: Yes Plan: Ct with Heparin 5000iu q8h subcut; SCD.
[2017-11-18] MEDS ORDERED: POTASSIUM CHLORIDE 20 MEQ/15 ML UDCUP PO ONE (13:03)
[2017-11-18] MEDS: CEFTRIAXONE SODIUM 1,000 MG in NORMAL SALINE 100 ML IV SCH (14:46)
[2017-11-18] MEDS: POTASSI CL 20 MEQ/NS 1L 1,000 ML IV PRN (14:46)
[2017-11-19] MEDS: HYDROMORPHONE HCL 2 MG TABLET PO PRN ×2 (02:37→08:59)
[2017-11-19] MEDS: LANSOPRAZOLE 30 MG TAB.RAP.DR PO SCH (05:33)
[2017-11-19] MEDS: GABAPENTIN 300 MG CAPSULE PO SCH (05:33)
[2017-11-19] MEDS: METOCLOPRAMIDE HCL 10 MG TABLET PO SCH (05:33)
[2017-11-19] MEDS: HEPARIN SOD (PORCINE) 5,000 UNIT/ML 1 ML SYRINGE SUBCUT SCH (05:35)
[2017-11-19 05:41] LABS: ABSOLUTE BASOPHILS # (AUTO) 0.1 10^3/uL (0.0-0.2); ABSOLUTE EOSINOPHILS # (AUTO) 0.3 10^3/uL (0.0-0.6); ABSOLUTE LYMPHOCYTES (AUTO) 4.7 10^3/uL (0.5-4.7); ABSOLUTE MONOCYTES (AUTO) 1.1 10^3/uL (0.1-1.4); BASOPHILS % (AUTO) 0.7 % (0-2); EOSINOPHILS % (AUTO) 2.8 % (0-6); HEMOGLOBIN 12.9 g/dL (12.0-15.5); LYMPHOCYTES % (AUTO) 51.7 % (13-45); MEAN CORPUSCULAR HGB CONC 33.2 g/dL (32.0-36.0); MEAN CORPUSCULAR VOLUME 97 fl (80-97); PLATELET COUNT 137 10^3/uL (150-450); RED BLOOD COUNT 4.05 10^6/uL (3.72-5.28); RED CELL DISTRIBUTION WIDTH 13.8 % (11.5-14.0); SEGMENTED NEUTROPHILS % (AUTO) 32.8 % (42-78); TOTAL CELLS COUNTED % (AUTO) 100 %; WHITE BLOOD COUNT 9.1 10^3/uL (4.0-10.5)
[2017-11-19 05:58] LABS: ALANINE AMINOTRANSFERASE 33 U/L (9-52); ALKALINE PHOSPHATASE 152 U/L (38-126); ANION GAP 9 (5-19); ASPARTATE AMINO TRANSFERASE 35 U/L (14-36); BILIRUBIN,DIRECT 0.2 mg/dL (0.0-0.4); BILIRUBIN,TOTAL 0.3 mg/dL (0.2-1.3); BLOOD UREA NITROGEN 10 mg/dL (7-20); CALCIUM 8.6 mg/dL (8.4-10.2); CARBON DIOXIDE 23 mmol/L (22-30); CHLORIDE 111 mmol/L (98-107); CREATINE KINASE 180 U/L (30-135); GLUCOSE 87 mg/dL (75-110); POTASSIUM 3.8 mmol/L (3.6-5.0); TOTAL PROTEIN 6.1 g/dL (6.3-8.2)
[2017-11-19] MEDS: POTASSI CL 20 MEQ/NS 1L 1,000 ML IV PRN (06:36)
[2017-11-19] MEDS: HYDROCHLOROTHIAZIDE 12.5 MG CAPSULE PO SCH (09:03)
[2017-11-19] MEDS: DOCUSATE SODIUM 100 MG CAPSULE PO SCH (09:03)
[2017-11-19] MEDS: POTASSIUM CHLORIDE 10 MEQ TABLET.SA PO SCH (09:04)
[2017-11-19] MEDS: NICOTINE 21 MG/24 HR PATCH.TD24 TD SCH (09:04)
[2017-11-19] MEDS: LOSARTAN POTASSIUM 50 MG TABLET PO SCH (09:04)
[2017-11-19] MEDS: ASPIRIN 81 MG TABLET, ENT COATED PO SCH (09:05)
[2017-11-19] MEDS: NADOLOL 40 MG TABLET PO SCH (09:06)
--- NOTE | 2017-11-19 12:38 | PDOC DISCHARGE SUMMARY ---
General - Admit/Disc Date/PCP Admission Date/Primary Care Provider: 11/16/17 11:50 CLEO STEPHENS Discharge Date: 11/19/17 - Discharge Diagnosis (1) Acute kidney injury Is this a current diagnosis for this admission?: Yes (2) Rhabdomyolysis Is this a current diagnosis for this admission?: Yes (3) Hypokalemia Is this a current diagnosis for this admission?: Yes (4) Leukocytosis Is this a current diagnosis for this admission?: Yes (5) Hypertension Is this a current diagnosis for this admission?: Yes (6) Hyperlipidemia Is this a current diagnosis for this admission?: Yes (7) Lumbago Is this a current diagnosis for this admission?: Yes (8) Reflux esophagitis Is this a current diagnosis for this admission?: Yes (9) Vitamin D deficiency Is this a current diagnosis for this admission?: Yes (10) TIA (transient ischemic attack) Is this a current diagnosis for this admission?: Yes (11) Hepatitis C Is this a current diagnosis for this admission?: Yes (12) Rhinitis, allergic Is this a current diagnosis for this admission?: Yes (13) Smoker Is this a current diagnosis for this admission?: Yes (14) DVT prophylaxis Is this a current diagnosis for this admission?: Yes - Additional Information Discharge Diet: Cardiac Discharge Activity: Activity As Tolerated Prescriptions: Ibuprofen 800 mg PO BID PRN #60 tablet PRN Reason: For Back Pain Home Medications: Aspirin [Ecotrin 81 mg EC Tablet] 81 mg PO DAILY 04/22/17 Ergocalciferol (Vitamin D2) [Drisdol 50,000 unit (1.25MG) Capsule] 1 cap PO SA@ 1000 PRN 04/22/17 Gabapentin [Neurontin] 600 mg PO Q8 04/22/17 Pantoprazole Sodium [Protonix] 40 mg PO DAILY 04/22/17 Potassium Chloride [Klor-Con 10 Meq Tablet.sa] 10 meq PO DAILY #30 tablet.sa 07/31 Ascorbic Acid [Vitamin C 500 mg Tablet] 1,000 mg PO DAILY 11/16/17 Famotidine [Pepcid AC] 20 mg PO DAILY 11/16/17 Losartan Potassium [Cozaar 50 mg Tablet] 50 mg PO DAILY 11/16/17 Hydromorphone HCl [Dilaudid] 4 mg PO TID #0 11/19/17 Ibuprofen 800 mg PO BID PRN #60 tablet 11/19/17 Nadolol [Corgard 40 mg Tablet] 20 mg PO DAILY tablet 11/19/17 History of Present Illness History of Present Illness: TOM COWAN is a 62 year old female with hx of HTN/Hyperlipidemia/PAD/CVD s.p TIA/GERD/Chronic Back pain/Vitamin D def/Hepatitis C/Rhinitis/Obesity/Chronic smoker, who was in her baseline till 3days ago when she started having nausea/ vomiting; she also had a witnessed fall 3 days ago. On account of the worsening of the symptoms, she came to the ER today. Her BUN/Cr was 32/4.85; CK- 985 and repeat is 1009; WBC- 15.1; Potassium was 3.1. She had KCL 40 MEQ , Rocephin 1 G IV and IV fluid bolus at ED. She was admitted at Telemetry floor. ED provider had consulted traffic observer, Dr Cordova on this pt and she promised to follow up with her mgt. Hospital Course Hospital Course: 62 year old woman who was admitted to Telemetry floor for acute kidney injury/ Rhabdomyolysis/Hypokalemia/Leukocytosis unspecified. She had IV fluid hydration with potassium replacement and was put on Rocephin IV. Her kidney function has come back to normal; potassium is normal and leukocytosis resolved, thought blood culture and urine culture showed no growth and chest xray was normal. Her creatine kinase is almost back to normal. We held Simvastatin and will continue to hold it on discharge. She is stable and will be discharge home today to follow up with PCP within 1 week. Both patient and family are in agreement with this plan of care. Physical Exam Vital Signs: Temp Pulse Resp BP Pulse Ox 97.4 F 79 18 117/62 98 11/19/17 08:00 11/19/17 08:00 11/19/17 08:00 11/19/17 08:00 11/19/17 08:00 Intake & Output 11/18/17 11/19/17 11/20/17 06:59 06:59 06:59 Intake Total 1036 4086 Balance 3521 4086 Weight 59 kg 60.3 kg General appearance: PRESENT: no acute distress, cooperative, obese, well- developed, well-nourished Head exam: PRESENT: atraumatic, normocephalic Eye exam: PRESENT: EOMI, PERRLA Ear exam: PRESENT: normal external ear exam, TM's normal bilaterally Mouth exam: PRESENT: moist, neck supple, tongue midline Neck exam: PRESENT: full ROM Respiratory exam: PRESENT: clear to auscultation duglas, symmetrical Cardiovascular exam: PRESENT: +S1, +S2 Pulses: PRESENT: +2 pedal pulses bilateral GI/Abdominal exam: PRESENT: normal bowel sounds, soft Rectal exam: PRESENT: deferred Extremities exam: PRESENT: full ROM Musculoskeletal exam: PRESENT: full ROM Neurological exam: PRESENT: alert, awake, oriented to person, oriented to place , oriented to time Psychiatric exam: PRESENT: normal mood Results Laboratory Results: 11/19/17 05:27 11/19/17 05:27 11/19/17 11/19/17 05:27 05:27 WBC 9.1 RBC 4.05 Hgb 12.9 Hct 39.0 MCV 97 MCH 32.0 MCHC 33.2 RDW 13.8 Plt Count 137 L Seg Neutrophils % 32.8 L Lymphocytes % 51.7 H Monocytes % 12.0 Eosinophils % 2.8 Basophils % 0.7 Absolute Neutrophils 3.0 Absolute Lymphocytes 4.7 Absolute Monocytes 1.1 Absolute Eosinophils 0.3 Absolute Basophils 0.1 Sodium 143.0 Potassium 3.8 Chloride 111 H Carbon Dioxide 23 Anion Gap 9 BUN 10 Creatinine 0.84 Est GFR ( Amer) > 60 Est GFR (Non-Af Amer) > 60 Glucose 87 Calcium 8.6 Total Bilirubin 0.3 AST 35 ALT 33 Alkaline Phosphatase 152 H Total Protein 6.1 L Albumin 3.0 L 11/16/17 11/16/17 11/17/17 12:13 12:13 04:10 Creatine Kinase 1009 H 953 H Troponin I 0.145 11/18/17 11/19/17 06:40 05:27 Creatine Kinase 303 H 180 H Troponin I Impressions: Chest X-Ray 11/16/17 07:48 IMPRESSION: Linear increased density in the right lower lobe probably atelectasis. Pneumonia cannot be excluded. Head CT 11/16/17 07:48 IMPRESSION: NORMAL BRAIN CT WITHOUT CONTRAST. EVIDENCE OF ACUTE STROKE: NO. Qualifiers - * PATEINT BEING DISCHARGED WITH ANY OF THE FOLLOWING DIAGNOSIS?: No VTE patient discharged on overlapping Therapy?: No Reason(s) for not prescribing Overlap Therapy:: Not indicated Stroke Pt being discharged on Anti-thrombolytic therapy?: No Reason(s) for not prescribing Anti-thrombolytic therapy:: Not indicated Stroke Pt being discharged on Anti-coagulation therapy?: No Reason(s) for not prescribing Anti-coagulation therapy:: Not indicated Stroke Pt being discharged on Statins?: No Reason(s) for not prescribing Statins therapy:: Not indicated DE Pt being discharged on Aspirin therapy?: No Reason(s) for not prescribing Aspirin therapy:: Not indicated DE Pt being discharged on Statins?: No Reason(s) for not prescribing Statin therapy:: Not indicated DE Pt discharged ACEI/ARBS?: No Reason(s) for not prescribing ACEI/ARBS:: Not indicated HF Pt being discharged on ACEI for LVEF less than 40%?: No Reason(s) for not prescribing ACEI:: Not indicated HF Pt being discharged on ARBS for LVEF less than 40%?: No Reason(s) for not prescribing ARBS:: Not indicated HF Pt with Afib discharged with Warfarin?: No Reason(s) for not prescribing Warfarin:: Not indicated HF Pt discharged on evidence-based Beta Pippa:: No Reason(s) for not prescribing evidence-based Beta Pippa:: Not indicated
[2017-11-19 13:21] VITALS: BP 126/71
[2017-11-22] MEDS ORDERED: ERGOCALCIFEROL (VITAMIN D2) 50000 UNIT (1.25 MG) CAPSULE PO SCH (10:00)
== END 2017-11-19 14:10 | disposition home health service (06) | DRG 682 ==
LOC: ER 07:20 → EH 11:50 → 5 18:30
PROVIDERS: ADMIT Internal Medicine; ATTEND Internal Medicine
DX: N17.9 Acute kidney failure, unspecified (principal); J18.9 Pneumonia, unspecified organism; M62.82 Rhabdomyolysis; I10 Essential (primary) hypertension; K21.0 Gastro-esophageal reflux disease with esophagitis; E87.6 Hypokalemia; E78.00 Pure hypercholesterolemia, unspecified; E55.9 Vitamin D deficiency, unspecified; B19.20 Unspecified viral hepatitis C without hepatic coma; M54.5 Low back pain; F32.9 Major depressive disorder, single episode, unspecified; F17.210 Nicotine dependence, cigarettes, uncomplicated; Z79.82 Long term (current) use of aspirin; Z79.891 Long term (current) use of opiate analgesic; Z79.899 Other long term (current) drug therapy
CPT/HCPCS: 36415; 70450; 71046; 80053; 80061; 80307; 81001; 82550; 83605; 83735; 83880; 84100; 84443; 84484; 85025; 86140; 87040; 87086; 93005; 93010; 96361; 96374; 99285; J0696; J1170; J1644; J3480; J3490; J7030

== ENCOUNTER → 2018-01-12 | Outpatient (CLI) | payer MEDICAID ==
--- NOTE | 2018-01-12 15:40 | WOMENS IMAGING REPORT ---
EXAM DESCRIPTION: BILAT SCREENING MAMMO W/CAD COMPLETED DATE/TIME: 01/12/2018 12:18 pm REASON FOR STUDY: ROUTINE SCREENING;Z12.31 Z12.31 ENCNTR SCREEN MAMMOGRAM FOR MALIGNANT NEOPLASM OF RADHA COMPARISON: 2008 to 2015 TECHNIQUE: Standard craniocaudal and mediolateral oblique views of each breast recorded using [employer] acquisition. LIMITATIONS: None. FINDINGS: No masses, calcifications or architectural distortion. No areas of suspicion. Read with the assistance of CAD. .[facility] - R2 Cenova Version 1.3 .[facility] - R2 Cenova Version 1.3 .[facility] Imaging - R2 Cenova Version 2.4 .[facility] [place] R2 Cenova Version 2.4 .[facility] - R2 Oil Painter Version 9.2 IMPRESSION: NORMAL MAMMOGRAM. BIRADS 1. BREAST DENSITY: c. The breasts are heterogeneously dense, which may obscure small masses. BIRAD: 1 NEGATIVE RECOMMENDATION: ROUTINE SCREENING COMMENT: The patient has been notified of the results by letter per SA requirements. Additional no tification policies are in place for contacting patient with suspicious or incomplete findings. Quality ID #225: The [employer] recommends an annual screening mammogram for women aged 40 years or over. This facility utilizes a reminder system to ensure that all patients receive reminder letters, and/or direct phone calls for appointments. This includes reminders for routine scr eening mammograms, diagnostic mammograms, or other Breast Imaging Interventions when appropriate. Th is patient will be placed in the appropriate reminder system. The [employer] (ACR) has developed recommendations for screening MRI of the breast s in certain patient populations, to be used in conjunction with mammography. Breast MRI surveillanc e may be appropriate for women with more than 20% lifetime risk of developing breast cancer as deter mined by genetic testing, significant family history of the disease, or history of mantle radiation f or Hodgkins Disease. ACR Practice Guidelines 2008. TECHNICAL DOCUMENTATION: FINDING NUMBER: (1) ASSESSMENT: (1) JOB ID: [id number] [employer]- All Rights Reserved Reading location - IP/workstation name: [email or web address]
== END ==
LOC: WI 11:43
PROVIDERS: ATTEND Internal Medicine
DX: Z12.31 Encounter for screening mammogram for malignant neoplasm of breast (principal)
CPT/HCPCS: 77067

== ENCOUNTER → 2018-01-19 | Outpatient (CLI) | payer MEDICAID ==
--- NOTE | 2018-01-19 09:59 | WOMENS IMAGING REPORT ---
EXAM DESCRIPTION: U/S ABDOMEN LIMITED COMPLETED DATE/TIME: 01/19/2018 8:25 am REASON FOR STUDY: CIRRHOSIS,NON ALCOHOL;K74.69 CHRONIC VIRAL HEPATITIS C;B18.2 K74.69 OTHER CIRRHOS IS OF LIVER B18.2 CHRONIC VIRAL HEPATITIS C COMPARISON: None. TECHNIQUE: Dynamic and static grayscale images acquired of the abdomen and recorded on PACS. Additio nal selected color Doppler and spectral images recorded. LIMITATIONS: None. FINDINGS: PANCREAS: No masses. No peripancreatic edema or fluid collections. LIVER: Sub capsular nodularity. Echotexture is coarse with increased echogenicity consistent with fa tty infiltration. LIVER VASCULATURE: Normal directional flow of the main portal vein and hepatic veins. GALLBLADDER: Surgically absent. ULTRASOUND-DETECTED MUNOZ'S SIGN: Not applicable. INTRAHEPATIC DUCTS AND COMMON DUCT: CBD and intrahepatic ducts normal caliber. No filling defects. INFERIOR VENA CAVA: Normal flow. AORTA: No aneurysm. RIGHT KIDNEY: Normal size. Normal echogenicity. No solid or suspicious masses. No hydronephros is. No calcifications. PERITONEAL AND RIGHT PLEURAL SPACE: No ascites or effusions. OTHER: No other significant finding. IMPRESSION: Medical hepatic disease. No acute findings. TECHNICAL DOCUMENTATION: JOB ID: [id number] [employer]- All Rights Reserved Reading location - IP/workstation name: [email or web address] SALE TO [facility]
== END ==
LOC: WI 07:40
PROVIDERS: ATTEND Internal Medicine Gastroenterology
DX: K74.69 Other cirrhosis of liver (principal); B18.2 Chronic viral hepatitis C
CPT/HCPCS: 76705

== ENCOUNTER → 2018-01-22 | Outpatient (CLI) | payer MEDICAID ==
[2018-01-22 16:41] LABS: HEMATOCRIT 40.9 % (36.0-47.0); HEMOGLOBIN 13.8 g/dL (12.0-15.5); MEAN CORPUSCULAR HEMOGLOBIN 32.7 pg (27.0-33.4); MEAN CORPUSCULAR HGB CONC 33.8 g/dL (32.0-36.0); MEAN CORPUSCULAR VOLUME 97 fl (80-97); PLATELET COUNT 164 10^3/uL (150-450); RED BLOOD COUNT 4.23 10^6/uL (3.72-5.28); RED CELL DISTRIBUTION WIDTH 13.5 % (11.5-14.0); WHITE BLOOD COUNT 11.6 10^3/uL (4.0-10.5)
[2018-01-22 17:01] LABS: ALANINE AMINOTRANSFERASE 28 U/L (9-52); ALBUMIN 3.9 g/dL (3.5-5.0); ALKALINE PHOSPHATASE 141 U/L (38-126); ANION GAP 11 (5-19); ASPARTATE AMINO TRANSFERASE 30 U/L (14-36); BILIRUBIN,DIRECT 0.4 mg/dL (0.0-0.4); BILIRUBIN,TOTAL 0.5 mg/dL (0.2-1.3); BLOOD UREA NITROGEN 20 mg/dL (7-20); CALCIUM 9.4 mg/dL (8.4-10.2); CARBON DIOXIDE 26 mmol/L (22-30); CHLORIDE 103 mmol/L (98-107); GLUCOSE 112 mg/dL (75-110); POTASSIUM 3.3 mmol/L (3.6-5.0); SODIUM 140.2 mmol/L (137-145); TOTAL PROTEIN 7.7 g/dL (6.3-8.2)
== END ==
LOC: OD 15:31
PROVIDERS: ATTEND Internal Medicine Gastroenterology
DX: K74.69 Other cirrhosis of liver (principal)
CPT/HCPCS: 36415; 80048; 80076; 85027

== ENCOUNTER → 2018-06-08 | Outpatient (CLI) | payer MEDICARE, MEDICAID ==
[2018-06-08 12:50] LABS: HEMATOCRIT 42.4 % (36.0-47.0); HEMOGLOBIN 14.5 g/dL (12.0-15.5); MEAN CORPUSCULAR HEMOGLOBIN 34.6 pg (27.0-33.4); MEAN CORPUSCULAR HGB CONC 34.3 g/dL (32.0-36.0); MEAN CORPUSCULAR VOLUME 101 fl (80-97); PLATELET COUNT 171 10^3/uL (150-450); RED CELL DISTRIBUTION WIDTH 15.8 % (11.5-14.0); WHITE BLOOD COUNT 12.4 10^3/uL (4.0-10.5)
[2018-06-08 13:13] LABS: ALANINE AMINOTRANSFERASE 33 U/L (9-52); ALBUMIN 3.7 g/dL (3.5-5.0); ALKALINE PHOSPHATASE 203 U/L (38-126); ASPARTATE AMINO TRANSFERASE 31 U/L (14-36); BILIRUBIN,DIRECT 0.6 mg/dL (0.0-0.4); BILIRUBIN,TOTAL 0.7 mg/dL (0.2-1.3); TOTAL PROTEIN 7.2 g/dL (6.3-8.2)
== END ==
LOC: OD 11:50
PROVIDERS: ATTEND Internal Medicine Gastroenterology
DX: B18.2 Chronic viral hepatitis C (principal); R94.5 Abnormal results of liver function studies
CPT/HCPCS: 36415; 80076; 85027

== ENCOUNTER → 2018-08-20 | Outpatient (CLI) | payer MEDICARE, MEDICAID ==
[2018-08-20 13:48] LABS: HEMATOCRIT 42.4 % (36.0-47.0); HEMOGLOBIN 14.4 g/dL (12.0-15.5); MEAN CORPUSCULAR HEMOGLOBIN 34.2 pg (27.0-33.4); MEAN CORPUSCULAR HGB CONC 33.9 g/dL (32.0-36.0); MEAN CORPUSCULAR VOLUME 101 fl (80-97); PLATELET COUNT 176 10^3/uL (150-450); WHITE BLOOD COUNT 13.5 10^3/uL (4.0-10.5)
[2018-08-20 13:52] LABS: INTERNATIONAL RATION (INR) 1.07; PROTHROMBIN TIME 14.5 SEC (11.4-15.4)
[2018-08-20 14:14] LABS: ALANINE AMINOTRANSFERASE 34 U/L (9-52); ALBUMIN 3.9 g/dL (3.5-5.0); ALKALINE PHOSPHATASE 228 U/L (38-126); ANION GAP 11 (5-19); ASPARTATE AMINO TRANSFERASE 32 U/L (14-36); BILIRUBIN,DIRECT 0.4 mg/dL (0.0-0.4); BILIRUBIN,TOTAL 0.7 mg/dL (0.2-1.3); BLOOD UREA NITROGEN 13 mg/dL (7-20); CALCIUM 9.7 mg/dL (8.4-10.2); CARBON DIOXIDE 28 mmol/L (22-30); CHLORIDE 104 mmol/L (98-107); GLUCOSE 109 mg/dL (75-110); POTASSIUM 4.4 mmol/L (3.6-5.0); SODIUM 142.9 mmol/L (137-145); TOTAL PROTEIN 7.7 g/dL (6.3-8.2)
== END ==
LOC: OD 13:15
PROVIDERS: ATTEND Physician Assistant Surgical
DX: K74.69 Other cirrhosis of liver (principal); R94.5 Abnormal results of liver function studies
CPT/HCPCS: 36415; 80048; 80076; 85027; 85610

== ENCOUNTER → 2018-10-18 | Outpatient (CLI) | payer MEDICARE, MEDICAID ==
--- NOTE | 2018-10-19 11:49 | XCELERA REPORT ---
[address] [address] Lower Extremity Arterial Evaluation Name: TOM COWAN Age: 63 yrs Gender: Female : 1955 Patient Status: Outpatient Patient Location: Study Date: 10/18/2018 11:05 AM Procedure: A color flow and duplex scan of the lower extremity arteries was performed bilaterally with velocity and waveform anaylsis. Ankle brachial indicies performed. Reason For Study: PAD Ordering Physician: LANA COWART Performed By: Gonzalo Rojo Measurements and Calculations Right Left LADLE FILLER PSV 138.8 121.3 cm/sec Prox PFA PSV -59.0 -54.5 cm/sec Prox SFA PSV 89.9 86.4 cm/sec Mid SFA PSV -76.4 -92.3 cm/sec Dist SFA PSV -60.1 -62.9 cm/sec Prox Pop A PSV 63.2 66.8 cm/sec Dist AURY PSV 89.1 81.3 cm/sec Dist ELECTRIC METER INSTALLER PSV 101.5 87.9 cm/sec Aleksandar Pedis PSV -89.1 -77.7 cm/sec Right Side Arterial Evaluation Normal velocity and triphasic waveforms noted from the Common Femoral artery to the infrageniculate vessels . Ankle Brachial index 1.00. PPG's are normal. Left Side Arterial Evaluation Normal velocity and triphasic waveforms noted from the Common Femoral artery to the infrageniculate vessels . Ankle Brachial index 1.06. PPG's are normal. Interpretation Summary No hemodynamically significant lesions in the bilateral lower extremities, on duplex imaging, at rest. Ankle Brachial indices normal, normal PPG's. : LANA COWART > Anival Kemp
== END ==
LOC: SP 10:35
PROVIDERS: ATTEND Podiatrist Foot Surgery
DX: I70.25 Atherosclerosis of native arteries of other extremities with ulceration (principal)
CPT/HCPCS: 93922; 93925

== ENCOUNTER → 2019-01-25 | Outpatient (CLI) | payer MEDICARE, MEDICAID ==
--- NOTE | 2019-01-25 12:18 | WOMENS IMAGING REPORT ---
EXAM DESCRIPTION: BILAT SCREENING MAMMO W/CAD COMPLETED DATE/TIME: 01/25/2019 12:01 pm REASON FOR STUDY: Z12.31 ROUTINE BILATERAL SCREENING Z12.31 ENCNTR SCREEN MAMMOGRAM FOR MALIGNANT N EOPLASM OF RADHA COMPARISON: Multiple since 2008 TECHNIQUE: Standard craniocaudal and mediolateral oblique views of each breast recorded using Guardly[employer] l acquisition. LIMITATIONS: None. FINDINGS: No suspicious masses, suspicious calcifications or architectural distortion. No areas of s uspicion. Read with the assistance of CAD. .[facility] - R2 Phlebotomy Program Coordinator Version 9.2 IMPRESSION: ASSESSMENT: Negative MAMMOGRAM. BIRADS 1 BREAST DENSITY: c. The breasts are heterogeneously dense, which may obscure small masses. BIRAD: 1 NEGATIVE RECOMMENDATION: ROUTINE SCREENING COMMENT: The patient has been notified of the results by letter per MQSA requirements. Additional no tification policies are in place for contacting patient with suspicious or incomplete findings. Quality ID #225: The [employer] recommends an annual screening mammogram for women aged 40 years or over. This facility utilizes a reminder system to ensure that all patients receive reminder letters, and/or direct phone calls for appointments. This includes reminders for routine scr eening mammograms, diagnostic mammograms, or other Breast Imaging Interventions when appropriate. Th is patient will be placed in the appropriate reminder system. TECHNICAL DOCUMENTATION: FINDING NUMBER: (1) ASSESSMENT: (1) JOB ID: [id number] [employer]- All Rights Reserved Reading location - IP/workstation name: [email or web address]
== END ==
LOC: WI 11:39
PROVIDERS: ATTEND Internal Medicine
DX: Z12.31 Encounter for screening mammogram for malignant neoplasm of breast (principal)
CPT/HCPCS: 77067

== ENCOUNTER → 2019-02-13 | Outpatient (CLI) | payer MEDICARE, MEDICAID ==
--- NOTE | 2019-02-13 13:49 | RADIOLOGY REPORT (SQ) ---
EXAM DESCRIPTION: CHEST 2 VIEWS COMPLETED DATE/TIME: 02/13/2019 1:26 pm REASON FOR STUDY: (R05) COUGH / CODE:[id number] COMPARISON: 11/16/2017 EXAM PARAMETERS: NUMBER OF VIEWS: two views TECHNIQUE: Digital Frontal and Lateral radiographic views of the chest acquired. RADIATION DOSE: NA LIMITATIONS: none FINDINGS: LUNGS AND PLEURA: No acute opacities, masses or pneumothorax. No pleural effusion. MEDIASTINUM AND HILAR STRUCTURES: Stable. HEART AND VASCULAR STRUCTURES: Stable. BONES: No acute findings. HARDWARE: None in the chest. OTHER: No other significant finding. IMPRESSION: NO ACUTE RADIOGRAPHIC FINDING IN THE CHEST. TECHNICAL DOCUMENTATION: JOB ID: [id number] [employer]- All Rights Reserved Reading location - IP/workstation name: [email or web address]
== END ==
LOC: RAD 13:04
PROVIDERS: ATTEND Nurse Practitioner Acute Care
DX: R05 Cough (principal)
CPT/HCPCS: 71046

== ENCOUNTER → 2019-05-02 | Outpatient (CLI) | payer MEDICARE, MEDICAID ==
[2019-05-02 13:41] LABS: HEMOGLOBIN 15.1 g/dL (12.0-15.5); MEAN CORPUSCULAR HEMOGLOBIN 34.1 pg (27.0-33.4); MEAN CORPUSCULAR HGB CONC 33.6 g/dL (32.0-36.0); MEAN CORPUSCULAR VOLUME 102 fl (80-97); PLATELET COUNT 201 10^3/uL (150-450); RED BLOOD COUNT 4.43 10^6/uL (3.72-5.28); RED CELL DISTRIBUTION WIDTH 14.7 % (11.5-14.0); WHITE BLOOD COUNT 18.7 10^3/uL (4.0-10.5)
[2019-05-02 14:11] LABS: ALBUMIN 3.8 g/dL (3.5-5.0); ALKALINE PHOSPHATASE 180 U/L (38-126); ANION GAP 14 (5-19); ASPARTATE AMINO TRANSFERASE 48 U/L (14-36); BILIRUBIN,DIRECT 0.5 mg/dL (0.0-0.4); BILIRUBIN,TOTAL 0.6 mg/dL (0.2-1.3); BLOOD UREA NITROGEN 14 mg/dL (7-20); CALCIUM 9.5 mg/dL (8.4-10.2); CARBON DIOXIDE 16 mmol/L (22-30); CHLORIDE 111 mmol/L (98-107); GLUCOSE 124 mg/dL (75-110); PHOSPHORUS 3.8 mg/dL (2.5-4.5); TOTAL PROTEIN 7.9 g/dL (6.3-8.2)
[2019-05-02 14:14] LABS: POTASSIUM 2.8 mmol/L (3.6-5.0)
== END ==
LOC: OD 13:01
PROVIDERS: ATTEND Internal Medicine Gastroenterology
DX: K74.69 Other cirrhosis of liver (principal)
CPT/HCPCS: 36415; 80048; 80076; 82105; 82140; 83735; 84100; 85027

== ENCOUNTER → 2019-05-03 | Outpatient (CLI) | payer MEDICARE, MEDICAID ==
--- NOTE | 2019-05-03 09:16 | WOMENS IMAGING REPORT ---
EXAM DESCRIPTION: U/S ABDOMEN LIMITED COMPLETED DATE/TIME: 05/03/2019 8:08 am REASON FOR STUDY: K74.69 CIRRHOSIS, NON ALCOHOL K74.69 OTHER CIRRHOSIS OF LIVER COMPARISON: 01/19/2018 TECHNIQUE: Dynamic and static grayscale images acquired of the abdomen and recorded on PACS. Additio nal selected color Doppler and spectral images recorded. LIMITATIONS: None. FINDINGS: PANCREAS: Majority the pancreas is obscured by overlying bowel gas. LIVER: The liver is nodular in contour. There is a 2.2 cm hypoechoic lesion in the left lobe. This is new from prior study. LIVER VASCULATURE: Normal directional flow of the main portal vein and hepatic veins. GALLBLADDER: Surgically absent. ULTRASOUND-DETECTED MUNOZ'S SIGN: Negative. INTRAHEPATIC DUCTS AND COMMON DUCT: CBD and intrahepatic ducts normal caliber. No filling defects. INFERIOR VENA CAVA: Normal flow. AORTA: Visualized portions of the abdominal aorta are normal in caliber. RIGHT KIDNEY: The right kidney measures 8.6 cm in length. No stones. No hydronephrosis. PERITONEAL AND RIGHT PLEURAL SPACE: No ascites or effusions. OTHER: No other significant findings. IMPRESSION: Nodular appearing liver. There is a hypoechoic 2.2 cm lesion in the left lobe. This is new from prior ultrasound and CT. This may represent a complex cyst. Solid lesion cannot be exclud ed. Correlation with three-phase CT would be helpful for further evaluation. TECHNICAL DOCUMENTATION: JOB ID: [id number] [employer]- All Rights Reserved Reading location - IP/workstation name: [email or web address]
== END ==
LOC: WI 07:40
PROVIDERS: ATTEND Internal Medicine Gastroenterology
DX: K74.69 Other cirrhosis of liver (principal)
CPT/HCPCS: 76705

== ENCOUNTER → 2019-05-25 | Outpatient (CLI) | payer MEDICARE, MEDICAID ==
--- NOTE | 2019-05-25 15:03 | RADIOLOGY REPORT (SQ) ---
EXAM DESCRIPTION: CT ABDOMEN COMBO COMPLETED DATE/TIME: 05/25/2019 2:38 pm REASON FOR STUDY: B18.2 CHRONIC VIRAL HEPATITIS C B18.2 CHRONIC VIRAL HEPATITIS C K74.69 OTHER CIR RHOSIS OF LIVER K76.89 OTHER SPECIFIED DISEASES OF LIVER COMPARISON: None. TECHNIQUE: CT scan of the abdomen performed with and without intravenous contrast, and without oral contrast. Contrasted imaging performed using helical scanning technique with dynamic intravenous cont rast injection. Images reviewed with lung, soft tissue, and bone windows. Reconstructed coronal and s agittal MPR images reviewed. Delayed images for evaluation of the urinary system also acquired and ev aluated. All images stored on PACS. All CT scanners at this facility use dose modulation, iterative reconstruction, and/or weight based d osing when appropriate to reduce radiation dose to as low as reasonably achievable (ALARA). [facility]: Dose Right [facility]: CareDose [facility]: Dose Right [facility]: Teradose 4D [facility]: Novogen CONTRAST TYPE AND DOSE: contrast/concentration: Isovue 350.00 mg/ml; Total Contrast Delivered: 75.0 ml; Total Saline Delivered: 80.0 ml RENAL FUNCTION: Creatinine 0.86 mg/dl RADIATION DOSE: CT Rad equipment meets quality standard of care and radiation dose reduction techniq ues were employed. CTDIvol: 11.2 - 46.0 mGy. DLP: 1580 mGy-cm.. LIMITATIONS: None. FINDINGS: NONCONTRASTED IMAGING: There is no CT evidence of hepatic steatosis. There are no renal c alcifications. POSTCONTRASTED IMAGING: LOWER CHEST: The nodule in the right lower lobe (image 3 of series 2.) is stable from 01/26/2018. The re is no basilar consolidation or pleural effusion. There is no cardiomegaly or pericardial effusion . LIVER: The nodular contour of the liver is consistent with cirrhosis. There is hypodense 2.4 x 2 cm lesion within segment 3 of the liver (image 15 of series 6). There is a standard hepatic arterial b ranch pattern. SPLEEN: The spleen is normal in size. PANCREAS: There is no abnormality of the pancreas. GALLBLADDER: The gallbladder is surgically absent. ADRENAL GLANDS: There is no abnormality of the adrenal glands. RIGHT KIDNEY AND URETER: No solid masses, hydronephrosis, nephrolithiasis, hydroureter or ureterolith iasis. LEFT KIDNEY AND URETER: No solid masses, hydronephrosis, nephrolithiasis, hydroureter or ureterolithi asis. AORTA AND VESSELS: There is [id number] atherosclerotic calcification of the abdominal aorta wit hout aneurysmal dilatation or dissection. The celiac, SMA, renal arteries, a and KENNETH are patent. Th e common iliac arteries are tortuous but normal in caliber with a moderate burden of calcified and no ncalcified atheromatous plaque. There is a variant retroaortic left renal vein. RETROPERITONEUM: No enlarged retroperitoneal adenopathy. BOWEL AND PERITONEAL CAVITY: Colonic diverticulosis. ABDOMINAL WALL: No masses or hernias. BONES: Unchanged grade 2 anterolisthesis of L3 on L4. OTHER: No other finding. IMPRESSION: 1. No aneurysmal dilatation or dissection of the abdominal aorta. The celiac, SMA and renal arteries are patent. 2. 2.4 x 2 cm hypodense lesion within segment 3 of the liver (image 15 of series 6) ; in the setting of cirrhosis the main differential consideration is a hepatocellular carcinoma. Correlation with a contrast-enhanced (liver protocol) MRI or CT is recommended. TECHNICAL DOCUMENTATION: JOB ID: [id number] Quality ID # [id number]: Final reports with documentation of one or more dose reduction techniques (e.g., Au tomated exposure control, adjustment of the mA and/or kV according to patient size, use of iterative reconstruction technique) 2010 [employer]- All Rights Reserved Reading location - IP/workstation name: [email or web address]
== END ==
LOC: RAD 05-13 13:36
PROVIDERS: ATTEND Internal Medicine Gastroenterology
DX: B18.2 Chronic viral hepatitis C (principal); K74.69 Other cirrhosis of liver; K76.89 Other specified diseases of liver; R97.8 Other abnormal tumor markers
CPT/HCPCS: 74170

== ENCOUNTER → 2019-08-08 | Outpatient (CLI) | payer MEDICARE, MEDICAID ==
[2019-08-08 18:25] LABS: INTERNATIONAL RATION (INR) 1.25; PROTHROMBIN TIME 15.8 SEC (11.4-15.4)
[2019-08-08 18:26] LABS: HEMATOCRIT 42.6 % (36.0-47.0); HEMOGLOBIN 13.7 g/dL (12.0-15.5); MEAN CORPUSCULAR HEMOGLOBIN 31.9 pg (27.0-33.4); MEAN CORPUSCULAR HGB CONC 32.2 g/dL (32.0-36.0); MEAN CORPUSCULAR VOLUME 99 fl (80-97); PLATELET COUNT 196 10^3/uL (150-450); RED BLOOD COUNT 4.29 10^6/uL (3.72-5.28); RED CELL DISTRIBUTION WIDTH 14.3 % (11.5-14.0); WHITE BLOOD COUNT 14.4 10^3/uL (4.0-10.5)
[2019-08-08 18:41] LABS: ALBUMIN 3.4 g/dL (3.5-5.0); ALKALINE PHOSPHATASE 201 U/L (38-126); ASPARTATE AMINO TRANSFERASE 35 U/L (14-36); BILIRUBIN,DIRECT 0.4 mg/dL (0.0-0.4); BILIRUBIN,TOTAL 0.6 mg/dL (0.2-1.3); TOTAL PROTEIN 7.7 g/dL (6.3-8.2)
[2019-08-10 16:50] LABS: BILE ACIDS 31.5 umol/L (0.0-10.0)
== END ==
LOC: OD 16:29
PROVIDERS: ATTEND Internal Medicine Gastroenterology
DX: K74.69 Other cirrhosis of liver (principal); C22.9 Malignant neoplasm of liver, not specified as primary or secondary
CPT/HCPCS: 36415; 80076; 82105; 82239; 85027; 85610

== ENCOUNTER 2019-11-18 19:06 | Inpatient (IN) | payer MEDICARE, MEDICAID ==
--- NOTE | 2019-11-18 20:32 | RADIOLOGY REPORT (SQ) ---
EXAM DESCRIPTION: RadLex: CT HEAD WITHOUT IV CONTRAST CLINICAL HISTORY: 64 years Female; ams; TECHNIQUE: Noncontrast CT head. All CT scans at this facility use dose modulation, iterative reconstruction, and/or weight based dosing when appropriate to reduce radiation dose to as low as reasonably achievable. COMPARISON: CT 05/06/2019 FINDINGS: Motion artifact degrades quality of the exam. There is no identifiable hemorrhage or mass effect. Ventricles and cisterns are preserved. Visualized portions of paranasal sinuses and mastoids are clear. Visualized portions of the calvarium are within normal limits. IMPRESSION: 1. No acute hemorrhage or mass effect
[2019-11-18 20:33] LABS: ABSOLUTE EOSINOPHILS # (AUTO) 0.5 10^3/uL (0.0-0.6); ABSOLUTE LYMPHOCYTES (AUTO) 1.9 10^3/uL (0.5-4.7); ABSOLUTE MONOCYTES (AUTO) 1.3 10^3/uL (0.1-1.4); BASOPHILS % (AUTO) 0.6 % (0-2); HEMATOCRIT 37.9 % (36.0-47.0); HEMOGLOBIN 12.3 g/dL (12.0-15.5); LYMPHOCYTES % (AUTO) 24.4 % (13-45); MEAN CORPUSCULAR HEMOGLOBIN 31.6 pg (27.0-33.4); MEAN CORPUSCULAR HGB CONC 32.4 g/dL (32.0-36.0); MEAN CORPUSCULAR VOLUME 98 fl (80-97); MONOCYTES % (AUTO) 17.2 % (3-13); PLATELET COUNT 152 10^3/uL (150-450); RED BLOOD COUNT 3.89 10^6/uL (3.72-5.28); RED CELL DISTRIBUTION WIDTH 16.5 % (11.5-14.0); SEGMENTED NEUTROPHILS % (AUTO) 51.8 % (42-78); TOTAL CELLS COUNTED % (AUTO) 100 %; WHITE BLOOD COUNT 7.8 10^3/uL (4.0-10.5)
--- NOTE | 2019-11-18 20:37 | RADIOLOGY REPORT (SQ) ---
EXAM DESCRIPTION: CT cervical spine without contrast CLINICAL HISTORY: 64 years Female, ams, fall COMPARISON: None. TECHNIQUE: Axial images of the cervical spine were performed, without the use of intravenous contrast, with sagittal and coronal reformatted images This exam was performed according to our departmental dose-optimization program which includes use of Automated Exposure Control, adjustment of the mA and/or kV according to patient size and/or use of iterative reconstruction technique. FINDINGS: No fracture or dislocation. There are degenerative changes throughout the cervical spine, with some spinal stenosis at multiple cervical levels. 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 There is no significant change, as compared with the prior CT scan. IMPRESSION: No fracture or dislocation. Other findings as described.
[2019-11-18 20:38] LABS: VENOUS BLOOD BASE EXCESS -4.7 mmol/L; VENOUS BLOOD HCO3 19.2 mmol/L (20-32); VENOUS BLOOD PCO2 32.2 mmHg (35-63); VENOUS BLOOD PH 7.39 (7.30-7.42)
[2019-11-18 21:00] LABS: INTERNATIONAL RATION (INR) 1.52; PROTHROMBIN TIME 18.5 SEC (11.4-15.4)
[2019-11-18 21:01] LABS: ALBUMIN 2.7 g/dL (3.5-5.0); ALKALINE PHOSPHATASE 158 U/L (38-126); ANION GAP 6 (5-19); ASPARTATE AMINO TRANSFERASE 53 U/L (14-36); BILIRUBIN,DIRECT 0.5 mg/dL (0.0-0.4); BILIRUBIN,TOTAL 1.2 mg/dL (0.2-1.3); BLOOD UREA NITROGEN 11 mg/dL (7-20); CALCIUM 8.5 mg/dL (8.4-10.2); CARBON DIOXIDE 21 mmol/L (22-30); CHLORIDE 115 mmol/L (98-107); GLUCOSE 114 mg/dL (75-110); POTASSIUM 3.7 mmol/L (3.6-5.0); TOTAL PROTEIN 7.1 g/dL (6.3-8.2)
--- NOTE | 2019-11-18 21:08 | ER Document Report ---
ED General - General Chief Complaint: Altered Mental Status Stated Complaint: ALOC Time Seen by Provider: 11/18/19 20:57 Notes: Patient is a 64-year-old female that comes emergency department for chief complaint of altered mental status. Patient comes by EMS, reportedly patient was found on her floor at her house by her neighbor, patient is unable to tell me how long she was lying on the floor. EMS reported initial glucose was in the 60s and she took oral glucose without difficulty. Recheck here was 99. Patient is able to tell me she is at hospital and she can identify herself but she cannot recall any events or give it me any other history otherwise at this time. Patient has a history of hepatitis C and liver failure. Patient states she thinks she is taking her home medications but is unable to tell me what they are. Reportedly she also has a history of hypertension, no other medical history reported. Patient did not have a fever on arrival, patient reports some soreness in her back but denies any particular area of pain otherwise. Patient states she lives by herself. TRAVEL OUTSIDE OF THE [place] IN LAST 30 DAYS: No - Related Data Allergies/Adverse Reactions: No Known Allergies Allergy (Verified 05/06/17 21:22) Past Medical History - General Information source: Patient, Emergency Med Personnel - Social History Smoking Status: Never Smoker Frequency of alcohol use: None Drug Abuse: None Lives with: Alone Family History: Reviewed & Not Pertinent - Past Medical History Cardiac Medical History: Reports: Hx Hypercholesterolemia, Hx Hypertension Neurological Medical History: Reports: Hx Seizures Endocrine Medical History: Denies: Hx Diabetes Mellitus Type 1, Hx Diabetes Mellitus Type 2 Renal/ Medical History: Denies: Hx Peritoneal Dialysis GI Medical History: Reports: Hx Gastroesophageal Reflux Disease Musculoskeletal Medical History: Reports Hx Arthritis Psychiatric Medical History: Reports: Hx Depression Past Surgical History: Reports: Hx Cholecystectomy - Immunizations Hx Diphtheria, Pertussis, Tetanus Vaccination: Yes Review of Systems - Review of Systems Constitutional: See HPI EENT: No symptoms reported Cardiovascular: No symptoms reported Respiratory: No symptoms reported Gastrointestinal: No symptoms reported Genitourinary: No symptoms reported Female Genitourinary: No symptoms reported Musculoskeletal: No symptoms reported Skin: No symptoms reported Hematologic/Lymphatic: No symptoms reported Neurological/Psychological: See HPI Physical Exam - Vital signs Vitals: Pulse Ox 98 11/18/19 19:07 - Notes Notes: GENERAL: Patient drowsy but arousable, cooperative, no distress HEAD: Normocephalic, atraumatic. EYES: Pupils equal, round, and reactive to light. Extraocular movements intact. ENT: Oral mucosa moist, tongue midline. Oropharynx unremarkable. Airway patent. Nares patent, no nasal septal hematoma LUNGS: Clear to auscultation bilaterally, no wheezes, rales, or rhonchi. No respiratory distress. No signs of trauma. HEART: Regular rate and rhythm. No murmur ABDOMEN: Soft, non-tender. Non-distended. EXTREMITIES: Moves all 4 extremities spontaneously. No edema, normal radial and dorsalis pedis pulses bilaterally. No cyanosis. BACK: Questionable tenderness along the general cervical area, no overt cervical, thoracic, lumbar midline tenderness. No saddle anesthesia, normal distal neurovascular exam. Moves all extremities in full range of motion. No signs of trauma. NEUROLOGICAL: Oriented to person and place but not to events. Normal speech. Cranial nerves II through XII grossly intact. SKIN: Warm, dry, normal turgor. No rashes or lesions noted. Course - Re-evaluation Re-evalutation: Patient is a arousable, oriented to person and place but not to events. She has difficulty answering any other questions. She appears to be acutely disoriented especially per report of her living at home by herself. I do not see any signs of trauma, patient does not appear to be in distress, vital signs are unremarkable. CBC unremarkable, blood gas nonspecific with normal pH, chemistry nonspecific. Ammonia is very elevated at greater than 81. Chest x-ray unremarkable, CT of the head and neck unremarkable. Troponin negative. CK is slightly elevated, patient was given a small bolus of IV fluids initially. Patient will require admission for acute hepatic encephalopathy. Started on lactulose. Discussed with Dr. Man, hospitalist, patient accepted to the medical floor full admission. - Vital Signs Vital signs: Temp Pulse Resp BP Pulse Ox 98.2 F 96 22 H 118/98 H 96 11/19/19 01:07 11/19/19 01:07 11/19/19 01:07 11/19/19 01:07 11/19/19 01:07 - Laboratory Result Diagrams: 11/18/19 20:05 11/18/19 20:05 Laboratory results interpreted by me: 11/18/19 11/18/19 11/18/19 20:05 20:05 20:05 MCV 98 H RDW 16.5 H [place] % (Auto) 17.2 H PT 18.5 H APTT VBG pCO2 VBG HCO3 Chloride 115 H Carbon Dioxide 21 L Est GFR (MDRD) Non-Af 58 L Glucose 114 H Direct Bilirubin 0.5 H AST 53 H Alkaline Phosphatase 158 H Ammonia Creatine Kinase Albumin 2.7 L Urine Ketones 11/18/19 11/18/19 11/18/19 20:05 20:05 20:05 MCV RDW [place] % (Auto) PT APTT 35.9 H VBG pCO2 32.2 L VBG HCO3 19.2 L Chloride Carbon Dioxide Est GFR (MDRD) Non-Af Glucose Direct Bilirubin AST Alkaline Phosphatase Ammonia 81.1 H Creatine Kinase Albumin Urine Ketones 11/18/19 11/18/19 20:05 23:08 MCV RDW [place] % (Auto) PT APTT VBG pCO2 VBG HCO3 Chloride Carbon Dioxide Est GFR (MDRD) Non-Af Glucose Direct Bilirubin AST Alkaline Phosphatase Ammonia Creatine Kinase 282 H Albumin Urine Ketones TRACE H Discharge - Discharge Clinical Impression: Hepatic encephalopathy Altered mental status Qualifiers: Altered mental status type: unspecified Qualified Code(s): R41.82 - Altered mental status, unspecified Condition: Stable Disposition: ADMITTED INPATIENT Admitting Provider: Donovan (Hospitalist) Unit Admitted: Medical Floor
--- NOTE | 2019-11-18 22:04 | RADIOLOGY REPORT (SQ) ---
EXAM DESCRIPTION: [facility]: XR CHEST 1 VIEW CLINICAL HISTORY: 64 years Female; AMS, WEAKNESS; COMPARISON: 05/06/2019 FINDINGS: Lungs are clear, with no focal infiltrate, pneumothorax, or pleural effusion. Mediastinum is within normal limits for this positioning. Bony structures are unremarkable. IMPRESSION: 1. No acute pulmonary findings.
--- NOTE | 2019-11-18 22:18 | EKG REPORT ---
SEVERITY:- ABNORMAL ECG - SINUS RHYTHM NONSPECIFIC T ABNORMALITIES, DIFFUSE LEADS : Confirmed by: Paul Esquivel MD 18-Nov-2019 22:17:38
[2019-11-18] MEDS ORDERED: NORMAL SALINE 500 ML IV ONE (22:41)
[2019-11-18] MEDS ORDERED: LACTULOSE SYRUP 20 GM/30 ML UDCUP PO ONE (22:44)
[2019-11-18 23:31] LABS: APPEARANCE,URINE CLEAR; BILIRUBIN,URINE NEGATIVE (NEGATIVE); COLOR,URINE YELLOW; GLUCOSE, URINE NEGATIVE (NEGATIVE); KETONES,URINE TRACE mg/dL (NEGATIVE); LEUKOCYTE ESTERASE,URINE NEGATIVE (NEGATIVE); NITRITE,URINE NEGATIVE (NEGATIVE); PROTEIN,URINE NEGATIVE (NEGATIVE); URINE SPECIFIC GRAVITY 1.012; UROBILINOGEN,URINE NEGATIVE mg/dL (<2.0)
[2019-11-19] MEDS ORDERED: GLUCAGON,HUMAN RECOMB 1 MG INJ SUBCUT PRN
[2019-11-19] MEDS ORDERED: DEXTROSE 40% GEL 15 GM TUBE PO PRN ×2
[2019-11-19] MEDS ORDERED: ONDANSETRON HCL INJ/PF 4 MG/2 ML SDV IV PRN
[2019-11-19] MEDS ORDERED: ACETAMINOPHEN 650 MG SUPP.RECT PR PRN
[2019-11-19] MEDS ORDERED: DEXTROSE 50%-WATER 25 GM/50 ML DISP.SYRIN IV PRN ×2
--- NOTE | 2019-11-19 | PDOC H&P ---
History of Present Illness Admission Date/PCP: 11/18/19 23:18 LUAN REYES MD Patient complains of: Found down at home confused History of Present Illness: TOM COWAN is a 64 year old female with a history of hepatitis C and previous admissions for hepatic encephalopathy. She is unable to provide any history. Evidently she was found down at home. This is similar to her previous admission from April of last year. At that time her ammonia level was approximately 40. The ammonia level on this admission is 80. In addition she has a slightly elevated creatinine kinase which could reflect mild rhabdomyolysis. The remainder of the information is from old records. Past Medical History Cardiac Medical History: Reports: Hyperlipidema, Hypertension Neurological Medical History: Reports: Seizures Endocrine Medical History: Denies: Diabetes Mellitus Type 1, Diabetes Mellitus Type 2 GI Medical History: Reports: Gastroesophageal Reflux Disease Musculoskeltal Medical History: Reports: Arthritis Psychiatric Medical History: Reports: Depression Infectious Medical History: Reports: Hepatitis C Past Surgical History Past Surgical History: Reports: Cholecystectomy Social History Smoking Status: Unknown if Ever Smoked Frequency of Alcohol Use: None Hx Recreational Drug Use: Yes - stopped 6-7 years ago Drugs: Heroin Hx Prescription Drug Abuse: Yes Past Social History Note: Information from previous records. - Advance Directive Resuscitation Status: Full Code Surrogate healthcare decision maker:: Unable to be determined at this time. Family History Family History: Other - Unable to obtain due to hepatic encephalopathy. Parental Family History Reviewed: No Children Family History Reviewed: No Sibling(s) Family History Reviewed.: No Medication/Allergy Home Medications: Aspirin [Ecotrin 81 mg EC Tablet] 81 mg PO DAILY 04/22/17 Ergocalciferol (Vitamin D2) [Drisdol 50,000 unit (1.25MG) Capsule] 1 cap PO SA@1000 PRN 04/22/17 Gabapentin [Neurontin] 600 mg PO Q8 04/22/17 Pantoprazole Sodium [Protonix] 40 mg PO DAILY 04/22/17 Losartan Potassium [Cozaar 50 mg Tablet] 100 mg PO DAILY 11/16/17 Atorvastatin Calcium [Lipitor 40 mg Tablet] 40 mg PO QHS 05/06/19 Bupropion HCl [Bupropion HCl Sr] 150 mg PO DAILY 05/06/19 Hydrochlorothiazide [Hydrodiuril 25 mg Tablet] 25 mg PO DAILY 05/06/19 Mv-Mn/Folic Acid/Vit [id number] [Alive Once Daily Women 50 Plus] 2 each PO DAILY 05/06/19 Propranolol HCl [Inderal 10 mg Tablet] 10 mg PO Q12 05/06/19 Ranitidine HCl [Zantac] 300 mg PO QHS 05/06/19 Azithromycin [Zithromax 250 mg Tablet] 250 mg PO DAILY #5 tablet 05/09/19 Lactulose 30 ml PO QID #120 05/09/19 Potassium Chloride [Klor-Con 10 Meq Tablet ER] 20 meq PO Q12 #60 capsule.er 05/09/19 Allergies/Adverse Reactions: No Known Allergies Allergy (Verified 05/06/17 21:22) Review of Systems ROS unobtainable: Due to mental status - Hepatic encephalopathy. Physical Exam Vital Signs: Temp Pulse Resp BP Pulse Ox 98.9 F 22 H 124/96 H 100 11/18/19 19:23 11/18/19 21:01 11/18/19 21:00 11/18/19 21:01 Intake & Output 11/17/19 11/18/19 11/19/19 06:59 06:59 06:59 Weight 48.5 kg General appearance: PRESENT: no acute distress, well-developed. ABSENT: cooperative Head exam: PRESENT: atraumatic, normocephalic Eye exam: PRESENT: conjunctiva pink. ABSENT: scleral icterus Ear exam: PRESENT: normal external ear exam. ABSENT: bleeding, drainage Neck exam: ABSENT: carotid bruit, JVD, lymphadenopathy Respiratory exam: PRESENT: clear to auscultation duglas, stridor - Slight expiratory stridor with clear lungs. Due to positioning of the patient in the hospital bed., symmetrical, unlabored. ABSENT: accessory muscle use, rales, rhonchi, tachypnea, wheezes Cardiovascular exam: PRESENT: RRR, +S1, +S2. ABSENT: diastolic murmur, systolic murmur GI/Abdominal exam: PRESENT: diminished bowel sounds, soft. ABSENT: distended, tenderness - No tenderness appreciated with palpation Rectal exam: PRESENT: deferred Extremities exam: PRESENT: pedal edema Neurological exam: PRESENT: altered - Minimal eye contact made. She does seem to respond to her name., awake Psychiatric exam: PRESENT: flat affect. ABSENT: agitated Focused psych exam: PRESENT: other - Unable to assess Skin exam: PRESENT: dry, normal color, rash - Scaly changes on her feet consistent with tinea pedis, warm Results Laboratory Results: 11/18/19 20:05 11/18/19 20:05 11/18/19 11/18/19 11/18/19 20:05 20:05 20:05 WBC 7.8 RBC 3.89 Hgb 12.3 Hct 37.9 MCV 98 H MCH 31.6 MCHC 32.4 RDW 16.5 H Plt Count 152 Seg Neutrophils % 51.8 VBG pH 7.39 VBG pCO2 32.2 L VBG HCO3 19.2 L VBG Base Excess -4.7 Sodium 142.2 Potassium 3.7 Chloride 115 H Carbon Dioxide 21 L Anion Gap 6 BUN 11 Creatinine 0.98 Est GFR ( Amer) > 60 Glucose 114 H Lactic Acid Calcium 8.5 Total Bilirubin 1.2 AST 53 H Alkaline Phosphatase 158 H Ammonia Total Protein 7.1 Albumin 2.7 L Urine Color Urine Appearance Urine pH Ur Specific [place] Urine Protein Urine Glucose (UA) Urine Ketones Urine Blood Urine Nitrite Ur Leukocyte Esterase Urine WBC (Auto) Urine RBC (Auto) 11/18/19 11/18/19 11/18/19 20:05 20:09 23:08 WBC RBC Hgb Hct MCV MCH MCHC RDW Plt Count Seg Neutrophils % VBG pH VBG pCO2 VBG HCO3 VBG Base Excess Sodium Potassium Chloride Carbon Dioxide Anion Gap BUN Creatinine Est GFR ( Amer) Glucose Lactic Acid 2.0 Calcium Total Bilirubin AST Alkaline Phosphatase Ammonia 81.1 H Total Protein Albumin Urine Color YELLOW Urine Appearance CLEAR Urine pH 6.0 Ur Specific [place] 1.012 Urine Protein NEGATIVE Urine Glucose (UA) NEGATIVE Urine Ketones TRACE H Urine Blood NEGATIVE Urine Nitrite NEGATIVE Ur Leukocyte Esterase NEGATIVE Urine WBC (Auto) 1 Urine RBC (Auto) 0 11/18/19 11/18/19 20:05 20:05 Creatine Kinase 282 H Troponin I < 0.012 Impressions: Head CT 11/18/19 19:50 IMPRESSION: 1. No acute hemorrhage or mass effect Cervical Spine CT 11/18/19 19:51 IMPRESSION: No fracture or dislocation. Other findings as described. Assessment and Plan - Diagnosis (1) Hepatic encephalopathy Is this a current diagnosis for this admission?: Yes Plan: 11/18/2019 Ammonia level is 81. Lactulose will be given by mouth. If the patient is unable to comply a lactulose per rectum can be given. Will recheck the ammonia level in the morning. Hepatic encephalopathy is secondary to her underlying hepatitis C. (2) Hepatitis C Qualifiers: Viral hepatitis chronicity: chronic Is this a current diagnosis for this admission?: Yes Plan: 11/18/[address] Reyes for her hepatitis. No acute intervention at this time. Transaminases are not significantly elevated neither is her bilirubin. Supportive care at this time. (3) Rhabdomyolysis Qualifiers: Rhabdomyolysis type: traumatic Encounter type: initial encounter Qualified Code(s): T79.6XXA - Traumatic ischemia of muscle, initial encounter Is this a current diagnosis for this admission?: Yes Plan: 11/18/2019 The creatinine kinase is slightly elevated at 282. We will administer IV fluids. We will repeat creatinine kinase level in the morning. (4) Hypertension Qualifiers: Hypertension type: essential hypertension Qualified Code(s): I10 - Essential (primary) hypertension Is this a current diagnosis for this admission?: Yes Plan: 11/18/2019 The patient is normally on losartan. If the patient cannot adequately take pills we will continue the losartan. For this evening I will order hydralazine if needed by IV. (5) Acute kidney injury Is this a current diagnosis for this admission?: Yes Plan: 11/18/2019 The patient's serum creatinine is normal at this time. The GFR is slightly less than 60. We will need to monitor with the underlying rhabdo. - Time Time Spent with patient: 35 or more minutes Medications reviewed and adjusted accordingly: Yes - Inpatient Certification Based on my medical assessment, after consideration of the patient's kale rbidities, presenting symptoms, or acuity I expect that the services needed warrant INPATIENT care.: Yes I certify that my determination is in accordance with my understanding of Medicare's requirements for reasonable and necessary INPATIENT services [42 CFR 412.3e].: Yes Medical Necessity: Need For IV Fluids, Risk of Complication if Not Cared For in Hospital
[2019-11-19] MEDS ORDERED: HYDRALAZINE HCL INJ/PF 20 MG/1 ML SDV IV PRN (00:13)
[2019-11-19] MEDS: NORMAL SALINE 1000 ML 1,000 ML IV PRN ×2 (00:54→10:04)
[2019-11-19] MEDS: LACTULOSE SYRUP 20 GM/30 ML UDCUP PO SCH ×3 (05:39→17:36)
[2019-11-19] MEDS: HEPARIN SOD (PORCINE) 5,000 UNIT/ML 1 ML VIAL SUBCUT SCH ×3 (05:39→21:44)
[2019-11-19] MEDS: FAMOTIDINE INJ/PF 20 MG/2 ML SDV IV SCH ×2 (09:59→21:44)
[2019-11-19] MEDS: CLOTRIMAZOLE 1% CREAM 15 GM TP SCH ×2 (13:51→21:46)
[2019-11-19] MEDS ORDERED: NORMAL SALINE 1000 ML 1,000 ML IV PRN (13:53)
--- NOTE | 2019-11-19 13:54 | PDOC PROGRESS REPORT ---
Subjective Progress Note for:: 11/19/19 Subjective:: TOM COWAN is a 64 year old female with a history of hepatitis C and previous admissions for hepatic encephalopathy. She is unable to provide any history. Evidently she was found down at home. This is similar to her previous admission from April of last year. At that time her ammonia level was approximately 40. The ammonia level on this admission is 80. In addition she has a slightly elevated creatinine kinase which could reflect mild rhabdomyolysis. The remainder of the information is from old records. 11/19/2019. Saw patient this morning, comfortably sleeping, easily arousable, alert and oriented x3, has had one bowel movement. Does not appear to be in any acute distress, appears somnolent. Reason For Visit: HEPATIC ENCEPHALOPATHY,CHRONIC HEPATITIS C Physical Exam Vital Signs: Temp Pulse Resp BP Pulse Ox 98.5 F 92 17 113/66 99 11/19/19 08:00 11/19/19 08:00 11/19/19 08:00 11/19/19 08:00 11/19/19 08:00 Intake & Output 11/18/19 11/19/19 11/20/19 06:59 06:59 07:59 Intake Total 500 1000 Balance 500 1000 Weight 83.5 kg General appearance: PRESENT: no acute distress, well-developed, well-nourished, other - Somnolent. Head exam: PRESENT: atraumatic, normocephalic Neck exam: ABSENT: carotid bruit, JVD, lymphadenopathy, thyromegaly Respiratory exam: PRESENT: clear to auscultation duglas. ABSENT: rales, rhonchi, wheezes Cardiovascular exam: PRESENT: RRR. ABSENT: diastolic murmur, rubs, systolic murmur GI/Abdominal exam: PRESENT: normal bowel sounds, soft. ABSENT: distended, guarding, mass, organolmegaly, rebound, tenderness Neurological exam: PRESENT: alert - Somnolent, easily arousable., oriented to person, oriented to place, CN II-XII grossly intact. ABSENT: motor sensory deficit Results Laboratory Results: 11/18/19 20:05 11/18/19 20:05 11/18/19 11/18/19 11/18/19 20:05 20:05 20:05 WBC 7.8 RBC 3.89 Hgb 12.3 Hct 37.9 MCV 98 H MCH 31.6 MCHC 32.4 RDW 16.5 H Plt Count 152 Seg Neutrophils % 51.8 VBG pH 7.39 VBG pCO2 32.2 L VBG HCO3 19.2 L VBG Base Excess -4.7 Sodium 142.2 Potassium 3.7 Chloride 115 H Carbon Dioxide 21 L Anion Gap 6 BUN 11 Creatinine 0.98 Est GFR ( Amer) > 60 Glucose 114 H Lactic Acid Calcium 8.5 Total Bilirubin 1.2 AST 53 H Alkaline Phosphatase 158 H Ammonia Total Protein 7.1 Albumin 2.7 L Urine Color Urine Appearance Urine pH Ur Specific [place] Urine Protein Urine Glucose (UA) Urine Ketones Urine Blood Urine Nitrite Ur Leukocyte Esterase Urine WBC (Auto) Urine RBC (Auto) 11/18/19 11/18/19 11/18/19 20:05 20:09 23:08 WBC RBC Hgb Hct MCV MCH MCHC RDW Plt Count Seg Neutrophils % VBG pH VBG pCO2 VBG HCO3 VBG Base Excess Sodium Potassium Chloride Carbon Dioxide Anion Gap BUN Creatinine Est GFR ( Amer) Glucose Lactic Acid 2.0 Calcium Total Bilirubin AST Alkaline Phosphatase Ammonia 81.1 H Total Protein Albumin Urine Color YELLOW Urine Appearance CLEAR Urine pH 6.0 Ur Specific [place] 1.012 Urine Protein NEGATIVE Urine Glucose (UA) NEGATIVE Urine Ketones TRACE H Urine Blood NEGATIVE Urine Nitrite NEGATIVE Ur Leukocyte Esterase NEGATIVE Urine WBC (Auto) 1 Urine RBC (Auto) 0 11/19/19 11/19/19 00:18 03:07 WBC RBC Hgb Hct MCV MCH MCHC RDW Plt Count Seg Neutrophils % VBG pH VBG pCO2 VBG HCO3 VBG Base Excess Sodium Potassium Chloride Carbon Dioxide Anion Gap BUN Creatinine Est GFR ( Amer) Glucose Lactic Acid 1.0 1.0 Calcium Total Bilirubin AST Alkaline Phosphatase Ammonia Total Protein Albumin Urine Color Urine Appearance Urine pH Ur Specific [place] Urine Protein Urine Glucose (UA) Urine Ketones Urine Blood Urine Nitrite Ur Leukocyte Esterase Urine WBC (Auto) Urine RBC (Auto) 11/18/19 11/18/19 20:05 20:05 Creatine Kinase 282 H Troponin I < 0.012 Impressions: Head CT 11/18/19 19:50 IMPRESSION: 1. No acute hemorrhage or mass effect Cervical Spine CT 11/18/19 19:51 IMPRESSION: No fracture or dislocation. Other findings as described. Assessment and Plan - Diagnosis (1) Hepatic encephalopathy Is this a current diagnosis for this admission?: Yes Plan: Due to underlying hepatitis C. Mild improvement. Presented with Ammonia level is 81. Continue lactulose p.o., titrate to have 3 soft bowel movements in 24 hours. Consider upper rectal lactulose if cannot tolerate p.o. intake or too somnolent to take p.o. intake. Fall, seizure and aspiration precautions. (3) Hypertension Qualifiers: Hypertension type: essential hypertension Qualified Code(s): I10 - Essential (primary) hypertension Is this a current diagnosis for this admission?: Yes Plan: Normotensive. Euvolemic. Home medications are losartan. Resume losartan. Adjust dosage as needed. PRN IV hydralazine and metoprolol. Outpatient PCP follow-up. (4) Rhabdomyolysis Qualifiers: Rhabdomyolysis type: traumatic Encounter type: initial encounter Qualified Code(s): T79.6XXA - Traumatic ischemia of muscle, initial encounter Is this a current diagnosis for this admission?: Yes Plan: Presented with creatinine kinase is slightly elevated at 282. Continue volume resuscitation added by volume status. CK level tomorrow. (5) Hepatitis C Qualifiers: Viral hepatitis chronicity: chronic Is this a current diagnosis for this admission?: Yes Plan: Follow as outpatient Dr. Reyes for her hepatitis. LFTs are not significantly elevated. Continue propanolol. Monitor LFTs, monitor for bleeding. Outpatient PCP and gastroenterology follow-up. (6) Hyperlipidemia Qualifiers: Hyperlipidemia type: unspecified Qualified Code(s): E78.5 - Hyperlipidemia, unspecified Is this a current diagnosis for this admission?: Yes Plan: Continue statins. Diet and lifestyle modification recommended.
[2019-11-19] MEDS: GABAPENTIN 300 MG CAPSULE PO SCH ×2 (17:36→21:44)
[2019-11-19] MEDS: LACTULOSE SYRUP 20 GM/30 ML UDCUP PR SCH ×2 (18:26→21:44)
[2019-11-19] MEDS: ATORVASTATIN CALCIUM 40 MG TABLET PO SCH (21:44)
[2019-11-19] MEDS: POTASSIUM CHLORIDE 10 MEQ TABLET.ER PO SCH (21:44)
[2019-11-19] MEDS: PROPRANOLOL HCL 10 MG TABLET PO SCH (21:45)
[2019-11-19] MEDS: BUPROPION HCL 75 MG TABLET PO SCH (21:45)
[2019-11-20] MEDS: LACTULOSE SYRUP 20 GM/30 ML UDCUP PO SCH ×4 (01:57→21:12)
[2019-11-20 05:24] LABS: HEMATOCRIT 34.6 % (36.0-47.0); HEMOGLOBIN 11.6 g/dL (12.0-15.5); MEAN CORPUSCULAR HEMOGLOBIN 32.2 pg (27.0-33.4); MEAN CORPUSCULAR HGB CONC 33.3 g/dL (32.0-36.0); MEAN CORPUSCULAR VOLUME 97 fl (80-97); PLATELET COUNT 154 10^3/uL (150-450); RED BLOOD COUNT 3.59 10^6/uL (3.72-5.28); RED CELL DISTRIBUTION WIDTH 16.5 % (11.5-14.0)
[2019-11-20 05:47] LABS: ANION GAP 7 (5-19); BLOOD UREA NITROGEN 8 mg/dL (7-20); CALCIUM 8.2 mg/dL (8.4-10.2); CARBON DIOXIDE 18 mmol/L (22-30); CHLORIDE 123 mmol/L (98-107); CREATINE KINASE 413 U/L (30-135); GLUCOSE 92 mg/dL (75-110); PHOSPHORUS 3.5 mg/dL (2.5-4.5); POTASSIUM 3.9 mmol/L (3.6-5.0)
[2019-11-20] MEDS: HEPARIN SOD (PORCINE) 5,000 UNIT/ML 1 ML VIAL SUBCUT SCH ×3 (06:06→21:09)
[2019-11-20] MEDS: GABAPENTIN 300 MG CAPSULE PO SCH ×3 (06:07→21:09)
[2019-11-20 06:10] LABS: ABSOLUTE LYMPHOCYTES# (MANUAL) 2.6 10^3/uL (0.5-4.7); ABSOLUTE MONOCYTES # (MANUAL) 1.4 10^3/uL (0.1-1.4); BASOPHILS % (MANUAL) 0 % (0-2); EOSINOPHILS % (MANUAL) 5 % (0-6); LYMPHOCYTES % (MANUAL) 29 % (13-45); MONOCYTES % (MANUAL) 18 % (3-13); SEGMENTED NEUTROPHILS % (MAN) 45 % (42-78); TOTAL CELLS COUNTED 100
[2019-11-20 06:13] LABS: ANISOCYTOSIS 1+; HELMET CELLS SLIGHT; OVALOCYTES 1+; POIKILOCYTOSIS 1+; SCHISTOCYTES SLIGHT; TEAR DROP CELLS SLIGHT
[2019-11-20 06:14] LABS: PLATELET COMMENT ADEQUATE
[2019-11-20] MEDS: HYDROCHLOROTHIAZIDE 25 MG TABLET PO SCH ×2 (12:05→12:23)
[2019-11-20] MEDS: ASPIRIN 81 MG TABLET, ENT COATED PO SCH (12:05)
[2019-11-20] MEDS: LOSARTAN POTASSIUM 50 MG TABLET PO SCH ×2 (12:06→12:24)
[2019-11-20] MEDS: POTASSIUM CHLORIDE 10 MEQ TABLET.ER PO SCH ×2 (12:06→21:09)
[2019-11-20] MEDS: FAMOTIDINE INJ/PF 20 MG/2 ML SDV IV SCH ×2 (12:07→21:10)
[2019-11-20] MEDS: CLOTRIMAZOLE 1% CREAM 15 GM TP SCH ×2 (12:07→21:11)
[2019-11-20] MEDS: PROPRANOLOL HCL 10 MG TABLET PO SCH ×2 (12:08→21:11)
[2019-11-20] MEDS: BUPROPION HCL 75 MG TABLET PO SCH ×2 (12:09→21:12)
--- NOTE | 2019-11-20 12:27 | PDOC PROGRESS REPORT ---
Subjective Progress Note for:: 11/20/19 Subjective:: TOM COWAN is a 64 year old female with a history of hepatitis C and previous admissions for hepatic encephalopathy. She is unable to provide any history. Evidently she was found down at home. This is similar to her previous admission from April of last year. At that time her ammonia level was approximately 40. The ammonia level on this admission is 80. In addition she has a slightly elevated creatinine kinase which could reflect mild rhabdomyolysis. The remainder of the information is from old records. 11/19/2019. Saw patient this morning, comfortably sleeping, easily arousable, alert and oriented x3, has had one bowel movement. Does not appear to be in any acute distress, appears somnolent. 11/20/2019. No acute events overnight. Patient is more awake. Alert and oriented x2, still have asterixis, has been having bowel movements, ammonia leve l still high but trending down since admission, denies any fever, chills, nausea, vomiting, diarrhea. Reason For Visit: HEPATIC ENCEPHALOPATHY,CHRONIC HEPATITIS C Physical Exam Vital Signs: Temp Pulse Resp BP Pulse Ox 98.2 F 84 22 H 110/47 L 98 11/20/19 07:56 11/20/19 07:56 11/20/19 07:56 11/20/19 07:56 11/20/19 07:56 Intake & Output 11/19/19 11/20/19 11/21/19 05:59 06:59 06:59 Intake Total Balance Weight General appearance: PRESENT: no acute distress, well-developed, well-nourished Head exam: PRESENT: atraumatic, normocephalic Respiratory exam: PRESENT: clear to auscultation duglas. ABSENT: rales, rhonchi, wheezes Cardiovascular exam: PRESENT: RRR. ABSENT: diastolic murmur, rubs, systolic murmur GI/Abdominal exam: PRESENT: normal bowel sounds, soft. ABSENT: distended, guarding, mass, organolmegaly, rebound, tenderness Extremities exam: PRESENT: full ROM. ABSENT: calf tenderness, clubbing, pedal edema Neurological exam: PRESENT: alert, awake, oriented to person, oriented to place, oriented to time, oriented to situation, CN II-XII grossly intact, other - Asterixis.. ABSENT: motor sensory deficit Results Laboratory Results: 11/20/19 05:03 11/20/19 05:03 11/20/19 11/20/19 11/20/19 05:03 05:03 05:03 WBC 8.0 RBC 3.59 L Hgb 11.6 L Hct 34.6 L MCV 97 MCH 32.2 MCHC 33.3 RDW 16.5 H Plt Count 154 Seg Neutrophils % Not Reportable Sodium 147.6 H Potassium 3.9 Chloride 123 H Carbon Dioxide 18 L Anion Gap 7 BUN 8 Creatinine 0.74 Est GFR ( Amer) > 60 Glucose 92 Calcium 8.2 L Phosphorus 3.5 Magnesium 1.9 Ammonia 65.6 H 11/18/19 11/18/19 11/20/19 20:05 20:05 05:03 Creatine Kinase 282 H 413 H Troponin I < 0.012 Impressions: Head CT 11/18/19 19:50 IMPRESSION: 1. No acute hemorrhage or mass effect Cervical Spine CT 11/18/19 19:51 IMPRESSION: No fracture or dislocation. Other findings as described. Assessment and Plan - Diagnosis (1) Hepatic encephalopathy Is this a current diagnosis for this admission?: Yes Plan: Moderate improvement. Alert and oriented x2. More interactive. Due to underlying hepatitis C. Presented with Ammonia level is 81. Ammonia level to be 65.6. Continue lactulose p.o., titrate to have 3 soft bowel movements in 24 hours. We will add rifaximin 550 twice daily. Consider upper rectal lactulose if cannot tolerate p.o. intake or too somnolent to take p.o. intake. Fall, seizure and aspiration precautions. (2) Hypertension Qualifiers: Hypertension type: essential hypertension Qualified Code(s): I10 - Essential (primary) hypertension Is this a current diagnosis for this admission?: Yes Plan: Normotensive. Euvolemic. Home medications are losartan. Resume losartan. Adjust dosage as needed. PRN IV hydralazine and metoprolol. Outpatient PCP follow-up. (3) Rhabdomyolysis Qualifiers: Rhabdomyolysis type: traumatic Encounter type: initial encounter Qualified Code(s): T79.6XXA - Traumatic ischemia of muscle, initial encounter Is this a current diagnosis for this admission?: Yes Plan: Presented with creatinine kinase is slightly elevated at 282. Continue volume resuscitation added by volume status. CK level tomorrow. (4) Hepatitis C Qualifiers: Viral hepatitis chronicity: chronic Is this a current diagnosis for this admission?: Yes Plan: Follow as outpatient Dr. Reyes for her hepatitis. LFTs are not significantly elevated. Continue propanolol. Monitor LFTs, monitor for bleeding. Outpatient PCP and gastroenterology follow-up. (5) Hyperlipidemia Qualifiers: Hyperlipidemia type: unspecified Qualified Code(s): E78.5 - Hyperlipidemia, unspecified Is this a current diagnosis for this admission?: Yes Plan: Continue statins. Diet and lifestyle modification recommended.
[2019-11-20] MEDS: LACTULOSE SYRUP 20 GM/30 ML UDCUP PR SCH (15:06)
[2019-11-20] MEDS ORDERED: IPRATROPIUM/ALBUTEROL 0.5-2.5 MG/3 ML AMPUL NEB PRN (19:01)
[2019-11-20] MEDS: RIFAXIMIN 550 MG TABLET PO SCH (20:09)
[2019-11-20] MEDS: ATORVASTATIN CALCIUM 40 MG TABLET PO SCH (21:10)
[2019-11-21] MEDS: LACTULOSE SYRUP 20 GM/30 ML UDCUP PO SCH ×2 (05:15→17:47)
[2019-11-21] MEDS: HEPARIN SOD (PORCINE) 5,000 UNIT/ML 1 ML VIAL SUBCUT SCH ×3 (05:15→21:56)
[2019-11-21] MEDS: GABAPENTIN 300 MG CAPSULE PO SCH ×3 (05:15→21:57)
[2019-11-21] MEDS: PROPRANOLOL HCL 10 MG TABLET PO SCH ×2 (09:14→21:56)
[2019-11-21] MEDS: ASPIRIN 81 MG TABLET, ENT COATED PO SCH (09:15)
[2019-11-21] MEDS: FAMOTIDINE INJ/PF 20 MG/2 ML SDV IV SCH ×2 (09:15→21:56)
[2019-11-21] MEDS: POTASSIUM CHLORIDE 10 MEQ TABLET.ER PO SCH ×2 (09:15→21:57)
[2019-11-21] MEDS: CLOTRIMAZOLE 1% CREAM 15 GM TP SCH ×2 (09:16→21:57)
[2019-11-21] MEDS: BUPROPION HCL 75 MG TABLET PO SCH ×2 (09:16→21:58)
[2019-11-21] MEDS ORDERED: LOSARTAN POTASSIUM 50 MG TABLET PO SCH (10:00)
[2019-11-21 10:41] LABS: ALBUMIN 2.4 g/dL (3.5-5.0); ALKALINE PHOSPHATASE 112 U/L (38-126); ANION GAP 10 (5-19); ASPARTATE AMINO TRANSFERASE 64 U/L (14-36); BILIRUBIN,DIRECT 0.6 mg/dL (0.0-0.4); BILIRUBIN,TOTAL 0.9 mg/dL (0.2-1.3); BLOOD UREA NITROGEN 4 mg/dL (7-20); CALCIUM 8.4 mg/dL (8.4-10.2); CARBON DIOXIDE 16 mmol/L (22-30); CHLORIDE 120 mmol/L (98-107); GLUCOSE 155 mg/dL (75-110); POTASSIUM 3.9 mmol/L (3.6-5.0); TOTAL PROTEIN 6.9 g/dL (6.3-8.2)
[2019-11-21] MEDS: RIFAXIMIN 550 MG TABLET PO SCH ×2 (11:46→17:51)
[2019-11-21] MEDS: ACETAMINOPHEN 325 MG TABLET PO PRN ×2 (11:46→23:24)
[2019-11-21] MEDS ORDERED: 1/2 NORMAL SALINE 1,000 ML IV ONE (11:59)
--- NOTE | 2019-11-21 12:09 | PDOC PROGRESS REPORT ---
Subjective Progress Note for:: 11/21/19 Subjective:: Patient seems much more awake today. She is conversational. She acknowledges that she has not been taking her lactulose for over a month because she did not like the runs of diarrhea. However, she is willing to resume it now. Denies any shortness of breath or chest pain or any pain anywhere at this time Reason For Visit: HEPATIC ENCEPHALOPATHY,CHRONIC HEPATITIS C Physical Exam Vital Signs: Temp Pulse Resp BP Pulse Ox 98.4 F 87 17 91/51 L 97 11/21/19 07:32 11/21/19 10:01 11/21/19 10:01 11/21/19 07:32 11/21/19 10:01 Intake & Output 11/20/19 11/21/19 11/22/19 06:59 06:59 06:59 Intake Total 1836 Balance 1836 Weight 84.9 kg General appearance: PRESENT: no acute distress, cooperative Neck exam: ABSENT: JVD Respiratory exam: PRESENT: clear to auscultation duglas, unlabored. ABSENT: tachypnea, wheezes Cardiovascular exam: PRESENT: RRR, +S1, +S2. ABSENT: tachycardia GI/Abdominal exam: PRESENT: soft. ABSENT: rebound, rigid, tenderness Neurological exam: PRESENT: alert, awake, oriented to person, oriented to place, oriented to time, oriented to situation Results Laboratory Results: 11/20/19 05:03 11/21/19 09:45 11/21/19 11/21/19 09:45 09:45 Sodium 145.6 H Potassium 3.9 Chloride 120 H Carbon Dioxide 16 L Anion Gap 10 BUN 4 L Creatinine 0.70 Est GFR ( Amer) > 60 Glucose 155 H Calcium 8.4 Total Bilirubin 0.9 AST 64 H Alkaline Phosphatase 112 Ammonia 54.8 H Total Protein 6.9 Albumin 2.4 L 11/18/19 11/18/19 11/20/19 20:05 20:05 05:03 Creatine Kinase 282 H 413 H Troponin I < 0.012 Impressions: Head CT 11/18/19 19:50 IMPRESSION: 1. No acute hemorrhage or mass effect Cervical Spine CT 11/18/19 19:51 IMPRESSION: No fracture or dislocation. Other findings as described. Assessment and Plan - Diagnosis (1) Hepatic encephalopathy Is this a current diagnosis for this admission?: Yes Plan: Encephalopathy seems to have improved significantly at this time are mostly resolving as patient is alert and fully oriented. Ammonia level continues to trend down. Continue lactulose p.o and rifaximin 550 twice daily. I will decrease lactulose dose to twice daily dosing as patient is starting to develop some non-anion gap metabolic acidosis and likely dehydration with mild hypernatremia. We will also give 1 L bolus of half-normal saline for treatment of hypernatremia and mild hypotension. (2) Hyperlipidemia Qualifiers: Hyperlipidemia type: unspecified Qualified Code(s): E78.5 - Hyperlipidemia, unspecified Is this a current diagnosis for this admission?: Yes Plan: Continue statins (3) Hypertension Qualifiers: Hypertension type: essential hypertension Qualified Code(s): I10 - Essential (primary) hypertension Is this a current diagnosis for this admission?: Yes Plan: Has history of hypertension but blood pressures have actually been soft and actually hypotensive. I will discontinue patient's losartan though she has already received it this morning. (4) Rhabdomyolysis Qualifiers: Rhabdomyolysis type: traumatic Encounter type: initial encounter Qualified Code(s): T79.6XXA - Traumatic ischemia of muscle, initial encounter Is this a current diagnosis for this admission?: Yes Plan: mild CK elevation. Encourage p.o. fluids. (5) Hepatitis C Qualifiers: Viral hepatitis chronicity: chronic Is this a current diagnosis for this admission?: Yes Plan: Follow as outpatient Dr. Reyes for her hepatitis. LFTs are not significantly elevated. Continue propanolol. . Outpatient PCP and gastroenterology follow-up. - Time Time Spent with patient: 15-24 minutes
[2019-11-21] MEDS: ALBUMIN HUMAN 12.5 GM/50 ML RTUINJ IV SCH ×2 (17:54→18:42)
[2019-11-21] MEDS: ATORVASTATIN CALCIUM 40 MG TABLET PO SCH (21:57)
[2019-11-22] MEDS: GABAPENTIN 300 MG CAPSULE PO SCH ×2 (05:31→14:29)
[2019-11-22] MEDS: HEPARIN SOD (PORCINE) 5,000 UNIT/ML 1 ML VIAL SUBCUT SCH ×2 (05:31→14:29)
[2019-11-22 06:03] LABS: BLOOD UREA NITROGEN 2 mg/dL (7-20); GLUCOSE 90 mg/dL (75-110); POTASSIUM 3.7 mmol/L (3.6-5.0)
[2019-11-22 06:08] LABS: ANION GAP 6 (5-19); CARBON DIOXIDE 18 mmol/L (22-30); CHLORIDE 119 mmol/L (98-107)
[2019-11-22] MEDS: PROPRANOLOL HCL 10 MG TABLET PO SCH (09:36)
[2019-11-22] MEDS: RIFAXIMIN 550 MG TABLET PO SCH (09:43)
[2019-11-22] MEDS: BUPROPION HCL 75 MG TABLET PO SCH (09:43)
[2019-11-22] MEDS: ASPIRIN 81 MG TABLET, ENT COATED PO SCH (09:43)
[2019-11-22] MEDS: POTASSIUM CHLORIDE 10 MEQ TABLET.ER PO SCH (09:43)
[2019-11-22] MEDS: LACTULOSE SYRUP 20 GM/30 ML UDCUP PO SCH (09:44)
[2019-11-22] MEDS: FAMOTIDINE INJ/PF 20 MG/2 ML SDV IV SCH (09:44)
[2019-11-22] MEDS: CLOTRIMAZOLE 1% CREAM 15 GM TP SCH (09:44)
--- NOTE | 2019-11-22 11:47 | PDOC DISCHARGE SUMMARY ---
Impression - Admit/DC Date/PCP Admission Date/Primary Care Provider: 11/18/19 23:18 LUAN REYES MD Discharge Date: 11/22/19 - Discharge Diagnosis (1) Hepatic encephalopathy Is this a current diagnosis for this admission?: Yes (2) Hyperlipidemia Is this a current diagnosis for this admission?: Yes (3) Hypertension Is this a current diagnosis for this admission?: Yes (4) Rhabdomyolysis Is this a current diagnosis for this admission?: Yes (5) Hepatitis C Is this a current diagnosis for this admission?: Yes (6) Chronic liver disease Is this a current diagnosis for this admission?: Yes - Additional Information Resuscitation Status: Full Code Discharge Diet: As Tolerated Discharge Activity: Activity As Tolerated Referrals: LUAN REYES MD [Primary Care Provider] - Prescriptions: Lactulose [Cephulac Syrup 20 gm/30 ml Udcup] 20 gm PO BID #60 udc Rifaximin [Xifaxan 550 mg Tablet] 550 mg PO BID #60 tablet Home Medications: Aspirin [Ecotrin 81 mg EC Tablet] 81 mg PO DAILY 04/22/17 Ergocalciferol (Vitamin D2) [Drisdol 50,000 unit (1.25MG) Capsule] 1 cap PO SA@1000 PRN 04/22/17 Gabapentin [Neurontin] 600 mg PO Q8 04/22/17 Atorvastatin Calcium [Lipitor 40 mg Tablet] 40 mg PO QHS 05/06/19 Bupropion HCl [Bupropion HCl Sr] 150 mg PO DAILY 05/06/19 Mv-Mn/Folic Acid/Vit [id number] [Alive Once Daily Women 50 Plus] 2 each PO DAILY 05/06/19 Propranolol HCl [Inderal 10 mg Tablet] 10 mg PO Q12 05/06/19 Potassium Chloride [Klor-Con 10 Meq Tablet ER] 20 meq PO Q12 #60 capsule.er 05/09/19 Lactulose [Cephulac Syrup 20 gm/30 ml Udcup] 20 gm PO BID #60 udc 11/22/19 Rifaximin [Xifaxan 550 mg Tablet] 550 mg PO BID #60 tablet 11/22/19 History of Present Illiness History of Present Illness: TOM COWAN is a 64 year old female with a history of hepatitis C and previous admissions for hepatic encephalopathy. She is unable to provide any history. Evidently she was found down at home. This is similar to her previous admission from April of last year. At that time her ammonia level was approximately 40. The ammonia level on this admission is 80. In addition she has a slightly elevated creatinine kinase which could reflect mild rhabdomyolysis. The remainder of the information is from old records. Hospital Course Hospital Course: patient was admitted after being found to be altered. Head CT was performed which was unremarkable. CT of cervical spine showed no evidence of traumatic fracture. Ammonia level was obtained which was significantly elevated over 80. Given patient's history of chronic liver disease, hepatitis C infection, it was thought that patient was having hepatic encephalopathy. Patient was started on lactulose and titrated to achieve the adequate number of bowel movements. She was also started on rifamixin. Patient's mental status and encephalopathy started to improve and her ammonia down trended. Since yesterday patient has been fully alert and completely oriented and fully conversational. She admitted to stopping her lactulose over a month ago because he used to give her diarrhea. She understands that she has to discontinue taking her lactulose as well as the risk of mixing and is willing to comply with this regimen. She will follow-up with Dr. Reyes who is the pharmacy laboratory technician that she sees for further care. Patient states that she has been fully ambulatory and has not had any difficulty ambulating compared to her prehospital baseline. She states that she uses her walker which is at home but states that she is very much stable on her feet to go home today. I have discontinued patient's losartan and hydrochlorothiazide given that she had some soft blood pressures in the hospital and was hypotensive at a point. Patient likely had soft BPs due to her chronic liver disease and may not require any antihypertensives at this point which may be indicative of progression of her chronic liver disease. Patient feels that she is back to baseline at this time and is safe for discharge. Physical Exam Vital Signs: Temp Pulse Resp BP Pulse Ox 98.3 F 87 19 103/54 L 98 11/21/19 23:17 11/21/19 23:17 11/21/19 23:17 11/21/19 23:17 11/21/19 23:17 Intake & Output 11/21/19 11/22/19 11/23/19 06:59 06:59 06:59 Intake Total 1836 2162 Balance 1836 2162 Weight 84.9 kg 86.4 kg General appearance: PRESENT: no acute distress, cooperative Neck exam: ABSENT: JVD Respiratory exam: PRESENT: clear to auscultation duglas Musculoskeletal exam: PRESENT: ambulatory Neurological exam: PRESENT: alert, awake, oriented to person, oriented to place, oriented to time, oriented to situation Results Laboratory Results: WBC 8.0 10^3/uL (4.0-10.5) 11/20/19 05:03 RBC 3.59 10^6/uL (3.72-5.28) L 11/20/19 05:03 Hgb 11.6 g/dL (12.0-15.5) L 11/20/19 05:03 Hct 34.6 % (36.0-47.0) L 11/20/19 05:03 MCV 97 fl (80-97) 11/20/19 05:03 MCH 32.2 pg (27.0-33.4) 11/20/19 05:03 MCHC 33.3 g/dL (32.0-36.0) 11/20/19 05:03 RDW 16.5 % (11.5-14.0) H 11/20/19 05:03 Plt Count 154 10^3/uL (150-450) 11/20/19 05:03 Lymph % (Auto) Not Reportable 11/20/19 05:03 [place] % (Auto) Not Reportable 11/20/19 05:03 Eos % (Auto) Not Reportable 11/20/19 05:03 Baso % (Auto) Not Reportable 11/20/19 05:03 Absolute Neuts (auto) Not Reportable 11/20/19 05:03 Absolute Lymphs (auto) Not Reportable 11/20/19 05:03 Absolute Monos (auto) Not Reportable 11/20/19 05:03 Absolute Eos (auto) Not Reportable 11/20/19 05:03 Absolute Basos (auto) Not Reportable 11/20/19 05:03 Total Counted 100 11/20/19 05:03 Seg Neutrophils % Not Reportable 11/20/19 05:03 Seg Neuts % (Manual) 45 % (42-78) 11/20/19 05:03 Lymphocytes % (Manual) 29 % (13-45) 11/20/19 05:03 Atypical Lymphs % 3 % (0) 11/20/19 05:03 Monocytes % (Manual) 18 % (3-13) H 11/20/19 05:03 Eosinophils % (Manual) 5 % (0-6) 11/20/19 05:03 Basophils % (Manual) 0 % (0-2) 11/20/19 05:03 Abs Neuts (Manual) 3.6 10^3/uL (1.7-8.2) 11/20/19 05:03 Abs Lymphs (Manual) 2.6 10^3/uL (0.5-4.7) 11/20/19 05:03 Abs Monocytes (Manual) 1.4 10^3/uL (0.1-1.4) 11/20/19 05:03 Absolute Eos (Manual) 0.4 10^3/uL (0.0-0.6) 11/20/19 05:03 Abs Basophils (Manual) 0.0 10^3/uL (0.0-0.2) 11/20/19 05:03 Platelet Comment ADEQUATE 11/20/19 05:03 Poikilocytosis 1+ 11/20/19 05:03 Anisocytosis 1+ 11/20/19 05:03 Tear Drop Cells SLIGHT 11/20/19 05:03 Ovalocytes 1+ 11/20/19 05:03 Helmet Cells SLIGHT 11/20/19 05:03 Schistocytes SLIGHT 11/20/19 05:03 PT 18.5 SEC (11.4-15.4) H 11/18/19 20:05 PT Cancelled 11/18/19 20:05 INR 1.52 11/18/19 20:05 INR Cancelled 11/18/19 20:05 INR (Anticoag Therapy) Cancelled 11/18/19 20:05 APTT 35.9 SEC (23.5-35.8) H 11/18/19 20:05 VBG pH 7.39 (7.30-7.42) 11/18/19 20:05 VBG pCO2 32.2 mmHg (35-63) L 11/18/19 20:05 VBG HCO3 19.2 mmol/L (20-32) L 11/18/19 20:05 VBG Base Excess -4.7 mmol/L 11/18/19 20:05 Sodium 143.1 mmol/L (137-145) 11/22/19 04:24 Potassium 3.7 mmol/L (3.6-5.0) 11/22/19 04:24 Chloride 119 mmol/L (98-107) H 11/22/19 04:24 Carbon Dioxide 18 mmol/L (22-30) L 11/22/19 04:24 Anion Gap 6 (5-19) 11/22/19 04:24 BUN 2 mg/dL (7-20) L 11/22/19 04:24 Creatinine 0.70 mg/dL (0.52-1.25) 11/22/19 04:24 Est GFR ( Amer) > 60 (>60) 11/22/19 04:24 Est GFR (MDRD) Non-Af > 60 (>60) 11/22/19 04:24 Glucose 90 mg/dL (75-110) 11/22/19 04:24 POC Glucose 75 mg/dL (70-110) 11/18/19 22:25 Lactic Acid 1.0 mmol/L (0.7-2.1) 11/19/19 03:07 Calcium 8.0 mg/dL (8.4-10.2) L 11/22/19 04:24 Phosphorus 3.5 mg/dL (2.5-4.5) 11/20/19 05:03 Magnesium 1.9 mg/dL (1.6-2.3) 11/20/19 05:03 Total Bilirubin 0.9 mg/dL (0.2-1.3) 11/21/19 09:45 Direct Bilirubin 0.6 mg/dL (0.0-0.4) H 11/21/19 09:45 Neonat Total Bilirubin Not Reportable 11/21/19 09:45 Neonat Direct Bilirubin Not Reportable 11/21/19 09:45 Neonat Indirect Bili Not Reportable 11/21/19 09:45 AST 64 U/L (14-36) H 11/21/19 09:45 ALT 25 U/L (<35) 11/21/19 09:45 Alkaline Phosphatase 112 U/L (38-126) 11/21/19 09:45 Ammonia 35.9 umol/L (9-33) H 11/22/19 04:24 Creatine Kinase 413 U/L (30-135) H 11/20/19 05:03 Troponin I < 0.012 ng/mL 11/18/19 20:05 Total Protein 6.9 g/dL (6.3-8.2) 11/21/19 09:45 Albumin 2.4 g/dL (3.5-5.0) L 11/21/19 09:45 Urine Color YELLOW 11/18/19 23:08 Urine Appearance CLEAR 11/18/19 23:08 Urine pH 6.0 (5.0-9.0) 11/18/19 23:08 Ur Specific [place] 1.012 11/18/19 23:08 Urine Protein NEGATIVE mg/dL (NEGATIVE) 11/18/19 23:08 Urine Glucose (UA) NEGATIVE mg/dL (NEGATIVE) 11/18/19 23:08 Urine Ketones TRACE mg/dL (NEGATIVE) H 11/18/19 23:08 Urine Blood NEGATIVE (NEGATIVE) 11/18/19 23:08 Urine Nitrite NEGATIVE (NEGATIVE) 11/18/19 23:08 Urine Bilirubin NEGATIVE (NEGATIVE) 11/18/19 23:08 Urine Urobilinogen NEGATIVE mg/dL (<2.0) 11/18/19 23:08 Ur Leukocyte Esterase NEGATIVE (NEGATIVE) 11/18/19 23:08 Urine WBC (Auto) 1 /HPF 11/18/19 23:08 Urine RBC (Auto) 0 /HPF 11/18/19 23:08 U Hyaline Cast (Auto) 2 /LPF 11/18/19 23:08 Squamous Epi Cells Auto <1 /HPF 11/18/19 23:08 Urine Mucus (Auto) OCC /LPF 11/18/19 23:08 Urine Ascorbic Acid NEGATIVE (NEGATIVE) 11/18/19 23:08 11/18/19 20:05 Troponin I < 0.012 Impressions: Chest X-Ray 11/18/19 00:00 IMPRESSION: 1. No acute pulmonary findings. Head CT 11/18/19 19:50 IMPRESSION: 1. No acute hemorrhage or mass effect Cervical Spine CT 11/18/19 19:51 IMPRESSION: No fracture or dislocation. Other findings as described. Plan Time Spent: Less than 30 Minutes Stroke Is this a Stroke Patient?: No Acute Heart Failure - Is this a Heart Failure Patient?: No
[2019-11-22 16:17] VITALS: BP 115/67
== END 2019-11-22 17:19 | disposition home health service (06) | DRG 442 ==
LOC: ER 19:06 → EH 23:18 → 4S 11-19 00:49
PROVIDERS: ADMIT Hospitalist; ATTEND Hospitalist
DX: K72.90 Hepatic failure, unspecified without coma (principal); N17.9 Acute kidney failure, unspecified; B18.2 Chronic viral hepatitis C; I10 Essential (primary) hypertension; E78.5 Hyperlipidemia, unspecified; K21.9 Gastro-esophageal reflux disease without esophagitis; T79.6XXA Traumatic ischemia of muscle, initial encounter; X58.XXXA Exposure to other specified factors, initial encounter; F32.9 Major depressive disorder, single episode, unspecified; Z60.2 Problems related to living alone; E78.00 Pure hypercholesterolemia, unspecified; Z79.899 Other long term (current) drug therapy; Z79.82 Long term (current) use of aspirin
CPT/HCPCS: 36415; 70450; 71045; 72125; 80048; 80053; 81001; 82140; 82550; 82803; 82962; 83605; 83735; 84100; 84484; 85025; 85610; 85730; 87040; 93005; 93010; 94640; 99283; A9270-GY; J1644; J3490; J7030; J7040; J7620; P9047; S0028